=== PATIENT | female | born 1965 | race Caucasian/White ===

== ENCOUNTER 2024-07-11 07:11 | Emergency (ER) | payer MEDICARE, SELFPAY ==
[2024-07-11 07:23] VITALS: BP 127/78; PULSE 62; RESP 19; TEMP 36.6; O2SAT 92; BMI 32.1
--- NOTE | 2024-07-11 07:29 | XR_ITS ---
Examination: PA lateral chest 2 views Technique: Upright PA lateral chest 2 views Exam date and time: July 11, 2024 0840 hrs. Comparison July 01, 2024 Indications: Coughing beginning 2 days ago Findings: Mild prominence cardiac contour No pneumonia or pulmonary edema The osseous structures are intact There is mild to moderate hyperexpansion Impression: Mild to moderate hyperexpansion No pneumonia or pulmonary edema
--- NOTE | 2024-07-11 07:30 | PD.EDSOB ---
ED SOB =RME/HPI General Chief Complaint: Shortness of Breath/Dyspnea Stated Complaint: SOB Time Seen by Provider: 07/11/24 07:29 Source: patient Arrival date/time: 07/11/24 07:11 58-year-old female with past medical history of COPD presents emergency department complaining of shortness of breath that started this morning. Patient denies any fever, chills, nausea vomiting, chest pain, or any other associated symptom. Mode of arrival: ambulatory Limitations: no limitations Related Data Home Medications ?Medication ?Instructions ?Recorded ?Confirmed diltiazem HCl 30 mg tablet 30 mg PO QID 08/17/22 08/17/22 flecainide 50 mg tablet 50 mg PO BID 08/17/22 08/17/22 Previous Rx's ?Medication ?Instructions ?Recorded diltiazem HCl 90 mg 90 mg PO BID Tachycardia #30 caps 08/17/22 capsule,extended release 12 hr diltiazem HCl 90 mg 90 mg PO BID #30 caps 04/01/23 capsule,extended release 12 hr diltiazem HCl 90 mg tablet 90 mg PO BID #60 tabs 09/22/23 albuterol sulfate 90 mcg/actuation 2 inh inhalation Q4H PRN shortness 10/13/23 aerosol inhaler of breath or wheezing #8.5 grams diltiazem HCl 90 mg 90 mg PO BID #30 caps 12/29/23 capsule,extended release 12 hr doxycycline hyclate 100 mg capsule 100 mg PO BID #14 caps 02/24/24 prednisone 20 mg tablet See Taper PO QDAY #7 tabs 02/24/24 albuterol sulfate 90 mcg/actuation 2 puff inhalation Q6H PRN 03/13/24 aerosol inhaler (Ventolin HFA) shortness of breath or wheezing #8.5 grams ibuprofen 600 mg tablet 600 mg PO Q8H PRN fever or pain 04/16/24 #30 tabs albuterol sulfate 90 mcg/actuation 2 puff inhalation Q6H PRN 04/21/24 aerosol inhaler (Ventolin HFA) shortness of breath or wheezing #8.5 grams ibuprofen 600 mg tablet 600 mg PO Q6H #30 tabs 04/29/24 azithromycin 250 mg tablet See Rx Instructions PO .COMPLEX #6 05/13/24 tabs diltiazem HCl 120 mg 120 mg PO BID #30 caps 05/16/24 capsule,extended release 12 hr levalbuterol tartrate 45 2 inh inhalation Q4H PRN shortness 06/14/24 mcg/actuation aerosol inhaler of breath or wheezing #15 grams (Xopenex HFA) metoprolol tartrate 50 mg tablet 50 mg PO BID #60 tabs 06/18/24 albuterol sulfate 90 mcg/actuation 2 inh inhalation Q6H PRN shortness 06/24/24 breath activated powder inhaler of breath or wheezing #1 ea levalbuterol HCl 1.25 mg/3 mL 1.25 mg (3 mL) inhalation Q4H #90 06/29/24 solution for nebulization mL prednisone 20 mg tablet 20 mg PO BID 3 days #6 tabs 07/11/24 Allergies Allergy/AdvReac Type Severity Reaction Status Date / Time No Known Allergies Allergy Verified 06/29/24 08:04 Review of Systems Review of Systems Systems Reviewed: All systems reviewed, normal except as documented Constitutional Constitutional: Reports system reviewed and no additional complaints, except as documented, Denies body ache(s), Denies chills and Denies fever(s) Eyes Eyes: Reports system reviewed and no additional complaints, except as documented and Denies change in vision ENT Ears, Nose, Mouth, and Throat: Reports system reviewed and no additional complaints, except as documented, Denies disequilibrium, Denies dizziness, Denies sore throat and Denies vertigo Cardiovascular Cardiovascular: Reports system reviewed and no additional complaints, except as documented, Denies chest pain and Reports dyspnea Respiratory Respiratory: Reports system reviewed and no additional complaints, except as documented, Denies chest congestion, Denies cough and Reports dyspnea Gastrointestinal Gastrointestinal: Reports system reviewed and no additional complaints, except as documented, Denies abdominal pain, Denies nausea and Denies vomiting Musculoskeletal Musculoskeletal: Reports system reviewed and no additional complaints, except as documented, Denies abnormal gait and Denies arthralgias Integumentary/Breasts Skin/Breast: Reports system reviewed and no additional complaints, except as documented, Denies erythema, Denies rash and Denies wounds Neurologic Neurologic: Reports system reviewed and no additional complaints, except as documented, Denies abnormal gait, Denies disequilibrium, Denies dizziness and Denies vertigo Past Medical History Past Medical History NEUROLOGIC: Negative Neurological Disorders CARDIAC: Positive Cardiac Arrhythmia, Atrial Fibrillation and Hypertension; Negative Cardiac Disorders or Congestive Heart Failure RESPIRATORY: Positive Chronic Obstructive Pulmonary Disease (COPD) and Asthma GASTROINTESTINAL: Negative Gastrointestinal Disorders GENITOURINARY: Negative Genitourinary Disorders or Renal Disease MUSCULOSKELETAL: Positive Arthritis; Negative Musculoskeletal Disorders ENT: Positive Deafness ENDOCRINE: Negative Diabetes Mellitus Type 1 or Diabetes Mellitus Type 2 HEMATOLOGIC: Negative Blood Disorders or Sickle Cell Disease OTHER HISTORY: Positive Ovarian Cancer; Negative Blood Transfusions, Blood Transfusion Reaction or Anesthesia Reactions Surgical History SURGICAL: Positive Hysterectomy Social History SMOKING STATUS: Never smoker SUBSTANCE USE: former substance user and methamphetamine ED Exam General Limitations: Present no limitations General appearance: Present alert and in no apparent distress Head Head exam: Present atraumatic Eye Eye exam: Present normal appearance, PERRL and EOMI ENT ENT exam: Present normal exam, normal oropharynx and mucous membranes moist Neck Neck exam: Present normal inspection, full ROM and trachea midline Chest Chest inspection: Present normal inspection and symmetric chest wall rise Respiratory Respiratory exam: Present normal lung sounds bilaterally and wheezes (Bilateral upper lobe expiratory wheeze) Cardiovascular Cardiovascular exam: Present regular rate, normal rhythm and normal heart sounds Abdominal Exam Abdominal exam: Present soft and normal bowel sounds Extremities Exam Extremities exam: Present normal inspection and full ROM Back Exam Back exam: Present normal inspection and full ROM Neurological Exam Neurological exam: Present alert, oriented X3 and CN II-XII intact Psychiatric Psychiatric exam: Present normal affect and normal mood Skin Skin exam: Present warm, dry, intact and normal color Course Quality Measures none Orders Category Date Time Status Bedside COVID-19 Antigen Test NOW Care 07/11/24 07:29 Completed Bedside Influenza A&B Antigen Test NOW Care 07/11/24 07:29 Completed XR chest 2V Stat Exams 07/11/24 07:29 Completed ALBUTEROL RT 0.5ml [Proventil Rt 0.5ml] Med 07/11/24 07:28 Discontinued 5 mg INH X1 ONE Ipratropium [place] Rt Lauren [Atrovent Rt Lauren] Med 07/11/24 07:28 Discontinued 1 mg INH X1 ONE Sodium Chloride Rt Lauren 0.9% [NS Rt Lauren 0.9%] Med 07/11/24 07:28 Discontinued 3 ml INH PRN PRN Vital Signs Vital signs: Vital Signs Temperature 97.9 F 07/11/24 07:23 Pulse Rate 62 07/11/24 07:23 Respiratory Rate 19 07/11/24 07:23 Blood Pressure 127/78 07/11/24 07:23 Pulse Oximetry (%) 92 L 07/11/24 07:23 Oxygen Delivery Method Room Air 07/11/24 07:23 92% on room air that improved to 97% on room air after breathing treatment. Shortness of Breath / Dyspnea MDM Narrative MDM Narrative:: 58-year-old female with past medical history of COPD presents emergency department complaining of shortness of breath that started this morning. Patient denies any fever, chills, nausea vomiting, chest pain, or any other associated symptom. Bilateral upper lobe expiratory wheezing on auscultation, patient given breathing treatment and significant improvement in wheezing. Patient was 92% upon arrival and increased to 97% after breathing treatment. Patient reported improvement in symptoms. Patient does not appear toxic or hemodynamically stable. X-ray was negative for any acute process. Patient reports has follow-up visit on Friday with primary care provider. Patient reports has albuterol inhaler at home with nebulizer. Instructed to return to the emergency department for any worsening symptoms or as needed. Patient data External records reviewed:: [facility] previous records Clinical information provided by:: patient Social determinants that could affect healthcare access:: none Patient has the following chronic illnesses:: See chart How is presenting disease/condition affected by chronic disease/condition?: exacerbated by Evaluation data The following diagnostics were reviewed and interpreted by me:: lab results and radiology exam(s) Lab and/or radiology exams considered but not ordered:: Ordered Interpretation Summary: Interpreted by me Medications / Prescriptions Medications or Prescriptions considered but not ordered:: Ordered Medication administrations:: Medication Administration History Discontinued Medications Albuterol (Albuterol Rt 2.5 Mg/0.5 Ml Nebu) 5 mg INH X1 ONE Stop: 07/11/24 07:29 Last Admin: 07/11/24 07:52 Dose: 5 mg Documented By: JOSE Ipratropium [place] (Ipratropium Rt 0.5 Mg/ 2.5 Ml Nebu) 1 mg INH X1 ONE Stop: 07/11/24 07:29 Last Admin: 07/11/24 07:51 Dose: 1 mg Documented By: JOSE Sodium Chloride (Sodium Chloride Rt Lauren 0.9% 3 Ml Nebu) 3 ml INH PRN PRN PRN Reason: SOLN Stop: 08/10/24 07:27 Last Admin: 07/11/24 07:52 Dose: 3 ml Documented By: EV Given Consultations Consultation(s) initiated? (list below): No Diagnosis Shortness of Breath Differential Diagnosis: acute exacerbation of chronic obstructive airways disease, community acquired pneumonia, asthma with exacerbation and pulmonary embolism Most likely diagnosis given after review of the tests above:: COPD with exacerbation Admission Indicated Admission indicated?: not indicated Admission Request Was there a request for admission?: No Disposition Plan Disposition Plan: Discharge Discharge Attestation Discharge Attestation: The patient and all family members were given an opportunity to ask questions and understood the discharge instructions. Discharge instructions specifically effects, indications for sooner follow up or return to the emergency department, and the expected course of current diagnosis. Patient condition: Stable Discharge Plan Plan Patient Disposition: HOME (Self Care) Disposition Comment: Stable Prescriptions/Referrals Prescriptions/Med Rec: New prednisone 20 mg tablet 20 mg PO BID 3 Days Qty: 6 0RF Taper: Prednisone Taper 20 mg DAILY for 2 Days and 0 Hour 10 mg DAILY for 2 Days and 0 Hour 5 mg DAILY for 7 Days and 0 Hour No Action diltiazem HCl 90 mg tablet 90 mg PO BID Qty: 60 0RF ibuprofen 600 mg tablet 600 mg PO Q6H Qty: 30 0RF levalbuterol tartrate [Xopenex HFA] 45 mcg/actuation HFA aerosol inhaler 2 inh inhalation Q4H PRN (Reason: shortness of breath or wheezing) Qty: 15 0RF albuterol sulfate 90 mcg/actuation aerosol powdr breath activated 2 inh inhalation Q6H PRN (Reason: shortness of breath or wheezing) Qty: 1 0RF levalbuterol HCl 1.25 mg/3 mL solution for nebulization 1.25 mg inhalation Q4H Qty: 90 0RF flecainide 50 mg tablet 50 mg PO BID diltiazem HCl 30 mg tablet 30 mg PO QID diltiazem HCl 90 mg capsule,extended release 12 hr 90 mg PO BID Qty: 30 0RF diltiazem HCl 90 mg capsule,extended release 12 hr 90 mg PO BID Qty: 30 0RF albuterol sulfate 90 mcg/actuation HFA aerosol inhaler 2 inh inhalation Q4H PRN (Reason: shortness of breath or wheezing) Qty: 8.5 0RF diltiazem HCl 90 mg capsule,extended release 12 hr 90 mg PO BID Qty: 30 1RF prednisone 20 mg tablet See Taper PO QDAY Qty: 7 0RF Taper: Prednisone Taper 60 mg DAILY for 1 Day and 0 Hour 40 mg DAILY for 2 Days and 0 Hour 20 mg DAILY for 2 Days and 0 Hour Rx Instructions: 60mg once daily for 1 day 40mg once daily for 2 days 20mg once daily for 2 days doxycycline hyclate 100 mg capsule 100 mg PO BID Qty: 14 0RF albuterol sulfate [Ventolin HFA] 90 mcg/actuation HFA aerosol inhaler 2 puff inhalation Q6H PRN (Reason: shortness of breath or wheezing) Qty: 8.5 0RF ibuprofen 600 mg tablet 600 mg PO Q8H PRN (Reason: fever or pain) Qty: 30 0RF albuterol sulfate [Ventolin HFA] 90 mcg/actuation HFA aerosol inhaler 2 puff inhalation Q6H PRN (Reason: shortness of breath or wheezing) Qty: 8.5 0RF azithromycin 250 mg tablet See Rx Instructions .ROUTE .COMPLEX Qty: 6 0RF Rx Instructions: For 250 mg dose pack: take 500 mg today (day 1), then 250 mg for 4 days (days 2-5) diltiazem HCl 120 mg capsule,extended release 12 hr 120 mg PO BID Qty: 30 0RF metoprolol tartrate 50 mg tablet 50 mg PO BID Qty: 60 0RF Referrals: Sofía Aquino PA-C [Primary Care Provider] - In 1 week Problem List Clinical Impression: Acute exacerbation of chronic obstructive pulmonary disease (COPD) Patient/Caregiver Discharge Instructions Discharge Activity: activity as tolerated Education Materials: COPD: Chronic Coughing, COPD: Using Inhalers, Treatment for COPD Additional Instructions: Take medication as prescribed. 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 Return to the emergency department for any worsening symptoms or as needed. Print Language: Maori Stand Alone Forms: [employer] Info., Patient Portal Info Letter BARBARA/JAKOB Supervising Physician BARBARA/JAKOB Supervising Physician: Dr. Camacho
[2024-07-11] MEDS: IPRATROPIUM RT 0.5 MG/ 2.5 ML NEBU 1 MG INH (07:51)
[2024-07-11 07:52] VITALS: PULSE 48
[2024-07-11] MEDS: SODIUM CHLORIDE RT SOL 0.9% 3 ML NEBU INH (07:52)
[2024-07-11] MEDS: ALBUTEROL RT 2.5 MG/0.5 ML NEBU 5 MG INH (07:52)
[2024-07-11 07:54] VITALS: PULSE 47; RESP 18; O2SAT 100
[2024-07-11 09:36] VITALS: BP 125/70; PULSE 60; RESP 18; TEMP 36.6; O2SAT 94
== END 2024-07-11 09:38 | disposition home or self-care (01) ==
PROVIDERS: Emergency Provider Emergency Medicine; PCP Physician Assistant
DX: J44.1 Chronic obstructive pulmonary disease with (acute) exacerbation (principal)
CPT/HCPCS: 71046; 87400; 87811; 94640; 99283

== ENCOUNTER 2024-07-13 12:54 | Emergency (ER) | payer MEDICARE, SELFPAY ==
--- NOTE | 2024-07-13 13:09 | EKG_ITS ---
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
--- NOTE | 2024-07-13 13:09 | XR_ITS ---
Examination: PA lateral chest 2 views TECHNIQUE: Upright PA lateral chest 2 views Exam date and time: July 13, 2024 1345 hours Comparison July 11, 2024 INDICATIONS: Onset chest pain today FINDINGS: Normal heart size Lungs are clear. The osseous structures are intact IMPRESSION: No active disease
[2024-07-13 13:10] VITALS: BP 143/66; PULSE 60; RESP 20; TEMP 36.6; O2SAT 96; BMI 30.1
--- NOTE | 2024-07-13 13:13 | PD.EDRME ---
Rapid Medical Screening Exam RME Arrival date/time: 07/13/24 12:54 50-year-old female presents to the emergency department complaint of chest pain shortness of breath Chief Complaint: Chest Pain Time Seen by Provider: 07/13/24 13:01 Vital signs: Vital Signs Temperature 97.9 F 07/13/24 13:10 Pulse Rate 60 07/13/24 13:10 Respiratory Rate 20 07/13/24 13:10 Blood Pressure 143/66 H 07/13/24 13:10 Pulse Oximetry (%) 96 07/13/24 13:10 Oxygen Delivery Method Room Air 07/13/24 13:10
[2024-07-13 13:28] LABS: Basophils % (Auto) 0 % (0-2.5); Eosinophils # (Auto) 0.1 Thou/mm3 (0.0-0.5); Eosinophils % (Auto) 1 % (0-10); Hematocrit 43.4 % (36.0-46.0); Hemoglobin 14.3 g/dL (12.0-16.0); Immature Granulocytes % (Auto) 1 % (0-0); Lymphocytes # (Auto) 1.8 Thou/mm3 (1.0-4.8); Lymphocytes % (Auto) 12 % (10-50); Mean Corpuscular HGB Conc 32.9 g/dl (31.0-37.0); Mean Corpuscular Hemoglobin 29.9 pg (25.0-35.0); Mean Corpuscular Volume 91 fL (80-100); Monocytes # (Auto) 0.8 Thou/mm3 (0.0-0.8); Monocytes % (Auto) 6 % (0-12); Neutrophils % (Auto) 81 % (37-80); Nucleated Red Blood Cell % 0 /100 WBC (0); Platelet Count 243 Thou/mm3 (140-440); RDW Standard Deviation 47.2 fL (36.4-46.3); Red Blood Count 4.79 Miln/mm3 (4.00-5.20); White Blood Count 14.8 Thou/mm3 (3.6-11.0)
[2024-07-13] MEDS: LEVALBUTEROL RT 1.25 MG/0.5 ML NEBU INH ×2 (13:31→15:31)
[2024-07-13] MEDS: SODIUM CHLORIDE RT SOL 0.9% 3 ML NEBU INH (13:31)
[2024-07-13 13:32] VITALS: PULSE 62; RESP 20; O2SAT 96
[2024-07-13 14:03] LABS: Alanine Aminotransferase 17 U/L (10-49); Albumin, Serum 4.4 gm/dL (3.5-5.0); Alkaline Phosphatase 75 U/L (46-116); Anion Gap 3 (7-16); Aspartate Amino Transferase 11 U/L (0-34); BUN/Creatinine Ratio 14 Ratio (12-20); Bilirubin,Total 0.8 mg/dL (0.3-1.2); Blood Urea Nitrogen 14 mg/dL (9-23); Calcium 9.4 mg/dL (8.3-10.6); Calcium (Corrected) 9.4 mg/dL (8.5-10.1); Carbon Dioxide 31.8 mMol/L (20.0-31.0); Chloride 105 mMol/L (98-107); Globulin 2.2 gm/dL (2.3-3.5); Glucose 121 mg/dL (74-106); Lipase 26 U/L (12-53); Osmolality,Calculated 280 (275-295); Potassium 3.6 mMol/L (3.4-5.1); Sodium 140 mMol/L (136-145); Total Protein 6.6 gm/dL (5.7-8.2); Troponin I < 0.020 ng/mL (0.0-0.045); eGFR > 60 See Note
--- NOTE | 2024-07-13 15:25 | EDNOTE_ITS ---
ED Chest Pain RME/HPI General Chief Complaint: Chest Pain Stated Complaint: HEART RACING/IRREGULAR Time Seen by Provider: 07/13/24 13:01 Arrival date/time: 07/13/24 12:54 58-year-old with history of SVT, COPD, and asthma presents to the emergency department with cough congestion and wheezing Limitations: no limitations RME / HPI RME / HPI narrative: 07/13/24 12:54 50-year-old female presents to the emergency department complaint of chest pain shortness of breath Related Data Home Medications ?Medication ?Instructions ?Recorded ?Confirmed diltiazem HCl 30 mg tablet 30 mg PO QID 08/17/22 08/17/22 flecainide 50 mg tablet 50 mg PO BID 08/17/22 08/17/22 Previous Rx's ?Medication ?Instructions ?Recorded diltiazem HCl 90 mg 90 mg PO BID Tachycardia #30 caps 08/17/22 capsule,extended release 12 hr diltiazem HCl 90 mg 90 mg PO BID #30 caps 04/01/23 capsule,extended release 12 hr diltiazem HCl 90 mg tablet 90 mg PO BID #60 tabs 09/22/23 albuterol sulfate 90 mcg/actuation 2 inh inhalation Q4H PRN shortness 10/13/23 aerosol inhaler of breath or wheezing #8.5 grams diltiazem HCl 90 mg 90 mg PO BID #30 caps 12/29/23 capsule,extended release 12 hr doxycycline hyclate 100 mg capsule 100 mg PO BID #14 caps 02/24/24 prednisone 20 mg tablet See Taper PO QDAY #7 tabs 02/24/24 albuterol sulfate 90 mcg/actuation 2 puff inhalation Q6H PRN 03/13/24 aerosol inhaler (Ventolin HFA) shortness of breath or wheezing #8.5 grams ibuprofen 600 mg tablet 600 mg PO Q8H PRN fever or pain 04/16/24 #30 tabs albuterol sulfate 90 mcg/actuation 2 puff inhalation Q6H PRN 04/21/24 aerosol inhaler (Ventolin HFA) shortness of breath or wheezing #8.5 grams ibuprofen 600 mg tablet 600 mg PO Q6H #30 tabs 04/29/24 azithromycin 250 mg tablet See Rx Instructions PO .COMPLEX #6 05/13/24 tabs diltiazem HCl 120 mg 120 mg PO BID #30 caps 05/16/24 capsule,extended release 12 hr levalbuterol tartrate 45 2 inh inhalation Q4H PRN shortness 06/14/24 mcg/actuation aerosol inhaler of breath or wheezing #15 grams (Xopenex HFA) metoprolol tartrate 50 mg tablet 50 mg PO BID #60 tabs 06/18/24 albuterol sulfate 90 mcg/actuation 2 inh inhalation Q6H PRN shortness 06/24/24 breath activated powder inhaler of breath or wheezing #1 ea levalbuterol HCl 1.25 mg/3 mL 1.25 mg (3 mL) inhalation Q4H #90 06/29/24 solution for nebulization mL albuterol sulfate 90 mcg/actuation 2 puff inhalation Q6H PRN 07/13/24 aerosol inhaler (Ventolin HFA) shortness of breath or wheezing #8.5 grams levalbuterol tartrate 45 2 inh inhalation Q6H #15 grams 07/13/24 mcg/actuation aerosol inhaler (Xopenex HFA) Allergies Allergy/AdvReac Type Severity Reaction Status Date / Time No Known Allergies Allergy Verified 07/13/24 12:55 Review of Systems Review of Systems Systems Reviewed: All systems reviewed, normal except as documented Constitutional Constitutional: Reports system reviewed and no additional complaints, except as documented, Denies fever(s) and Denies headache(s) Eyes Eyes: Reports system reviewed and no additional complaints, except as documented and Denies blurry vision ENT Ears, Nose, Mouth, and Throat: Reports system reviewed and no additional complaints, except as documented, Denies headache(s), Denies nasal congestion and Denies nasal discharge Cardiovascular Cardiovascular: Reports system reviewed and no additional complaints, except as documented, Denies chest pain and Reports dyspnea Respiratory Respiratory: Reports system reviewed and no additional complaints, except as documented, Reports chest congestion, Reports cough and Reports dyspnea Gastrointestinal Gastrointestinal: Reports system reviewed and no additional complaints, except as documented and Denies abdominal pain Integumentary/Breasts Skin/Breast: Reports system reviewed and no additional complaints, except as documented and Denies rash Neurologic Neurologic: Reports system reviewed and no additional complaints, except as documented, Reports as per HPI and Denies headache(s) Past Medical History Past Medical History NEUROLOGIC: Negative Neurological Disorders CARDIAC: Positive Cardiac Arrhythmia, Atrial Fibrillation and Hypertension; Negative Cardiac Disorders or Congestive Heart Failure RESPIRATORY: Positive Chronic Obstructive Pulmonary Disease (COPD) and Asthma GASTROINTESTINAL: Negative Gastrointestinal Disorders GENITOURINARY: Negative Genitourinary Disorders or Renal Disease MUSCULOSKELETAL: Positive Arthritis; Negative Musculoskeletal Disorders ENT: Positive Deafness ENDOCRINE: Negative Diabetes Mellitus Type 1 or Diabetes Mellitus Type 2 HEMATOLOGIC: Negative Blood Disorders or Sickle Cell Disease OTHER HISTORY: Positive Ovarian Cancer; Negative Blood Transfusions, Blood Transfusion Reaction or Anesthesia Reactions Surgical History SURGICAL: Positive Hysterectomy Social History SMOKING STATUS: Light (< 1 pack/day) SUBSTANCE USE: former substance user and methamphetamine ED Exam General Limitations: Present no limitations General appearance: Present alert and in no apparent distress Head Head exam: Present atraumatic Eye Eye exam: Present normal appearance, PERRL and EOMI ENT ENT exam: Present normal exam, normal oropharynx and mucous membranes moist Neck Neck exam: Present normal inspection, full ROM and trachea midline Chest Chest inspection: Present normal inspection and symmetric chest wall rise Respiratory Respiratory exam: Present wheezes; Absent respiratory distress, stridor, accessory muscle use or prolonged expiratory phase Cardiovascular Cardiovascular exam: Present regular rate, normal rhythm and normal heart sounds Abdominal Exam Abdominal exam: Present soft and normal bowel sounds Extremities Exam Extremities exam: Present normal inspection and full ROM Back Exam Back exam: Present normal inspection and full ROM Neurological Exam Neurological exam: Present alert, oriented X3 and CN II-XII intact Psychiatric Psychiatric exam: Present normal affect and normal mood Skin Skin exam: Present warm, dry, intact and normal color Course Quality Measures none Orders Category Date Time Status EKG (ED ONLY) *Do not use* NOW Care 07/13/24 13:09 Completed EKG (ED Only) Stat Exams 07/13/24 13:09 Draft XR chest 2V Stat Exams 07/13/24 13:09 Completed CBC Stat Lab 07/13/24 13:23 Completed Comprehensive Metabolic Panel Stat Lab 07/13/24 13:23 Completed Lipase Stat Lab 07/13/24 13:23 Completed Troponin I Stat Lab 07/13/24 13:23 Completed Albuterol/Ipratr Rt Lauren [Duoneb Rt Lauren] Med 07/13/24 13:09 Discontinued 3 ml INH X1 ONE Levalbuterol Rt [Xopenex Rt Lauren] Med 07/13/24 13:27 Discontinued 1.25 mg INH X1 ONE Levalbuterol Rt [Xopenex Rt Lauren] Med 07/13/24 15:25 Discontinued 1.25 mg INH X1 ONE Sodium Chloride Rt Lauren 0.9% [NS Rt Lauren 0.9%] Med 07/13/24 13:27 Discontinued 3 ml INH PRN PRN Sodium Chloride Rt Lauren 0.9% [NS Rt Lauren 0.9%] Med 07/13/24 15:25 Discontinued 3 ml INH PRN PRN Vital Signs Vital signs: Vital Signs Temperature 97.9 F 07/13/24 13:10 Pulse Rate 60 07/13/24 13:10 Respiratory Rate 20 07/13/24 13:10 Blood Pressure 143/66 H 07/13/24 13:10 Pulse Oximetry (%) 96 07/13/24 13:10 Oxygen Delivery Method Room Air 07/13/24 13:10 O2 saturation 96% room air within normal limits Procedures -ED EKG Interpretation #1: Additional EKG comment: EKG obtained 1417 EKG sinus bradycardia [address] elevation or depression Chest Pain MDM Narrative MDM Narrative:: 58-year-old with history of SVT, COPD, and asthma presents to the emergency department with cough congestion and wheezing On exam patient has wheezing bilaterally Chest x-ray lab work and EKG obtained No acute emergent findings noted Patient was given Xopenex x 2 after breathing treatments lungs are clear to auscultation Patient reports like to go home Patient discharged home in no distress to follow-up with primary care doctor in the next 24 to 48 hours and for any worsening symptoms to return to the ER immediately Patient data External records reviewed:: [facility] previous records Clinical information provided by:: patient Social determinants that could affect healthcare access:: none Patient has the following chronic illnesses:: See history How is presenting disease/condition affected by chronic disease/condition?: caused by Evaluation data The following diagnostics were reviewed and interpreted by me:: lab results, radiology exam(s) and EKG tracing(s) Lab and/or radiology exams considered but not ordered:: Labs, radiology, EKG obtained Interpretation Summary: Reviewed by me Medications / Prescriptions Medications or Prescriptions considered but not ordered:: Given Medication administrations:: Medication Administration History Discontinued Medications Albuterol/Ipratropium (Albuterol/Ipratropium (Duoneb) Rt Lauren 3 Ml Nebu) 3 ml INH X1 ONE Stop: 07/13/24 13:10 Last Admin: 07/13/24 13:28 Dose: Not Given Documented By: ASHISH Non-Admin Reason: Allergy Levalbuterol HCl (Levalbuterol Rt 1.25 Mg/0.5 Ml Nebu) 1.25 mg INH X1 ONE Stop: 07/13/24 13:28 Last Admin: 07/13/24 13:31 Dose: 1.25 mg Documented By: ASHISH Levalbuterol HCl (Levalbuterol Rt 1.25 Mg/0.5 Ml Nebu) 1.25 mg INH X1 ONE Stop: 07/13/24 15:26 Last Admin: 07/13/24 15:31 Dose: 1.25 mg Documented By: FRITZ Sodium Chloride (Sodium Chloride Rt Lauren 0.9% 3 Ml Nebu) 3 ml INH PRN PRN PRN Reason: SOLN Stop: 08/12/24 13:26 Last Admin: 07/13/24 13:31 Dose: 3 ml Documented By: ASHISH Sodium Chloride (Sodium Chloride Rt Lauren 0.9% 3 Ml Nebu) 3 ml INH PRN PRN PRN Reason: SOLN Stop: 08/12/24 15:24 Given Consultations Consultation(s) initiated? (list below): No Diagnosis Chest Pain Differential Diagnosis: pneumothorax, atypical chest pain, st e levation myocardial infarction, costochondritis, chest pain and other (Asthma exacerbation) Most likely diagnosis given after review of the tests above:: Asthma exacerbation Admission Indicated Admission indicated?: not indicated Admission Request Was there a request for admission?: No Disposition Plan Disposition Plan: Discharge Discharge Attestation Discharge Attestation: The patient and all family members were given an opportunity to ask questions and understood the discharge instructions. Discharge instructions specifically effects, indications for sooner follow up or return to the emergency department, and the expected course of current diagnosis. Patient condition: Stable Discharge Plan Plan Patient Disposition: HOME (Self Care) Disposition Comment: Stable Prescriptions/Referrals Prescriptions/Med Rec: New albuterol sulfate [Ventolin HFA] 90 mcg/actuation HFA aerosol inhaler 2 puff inhalation Q6H PRN (Reason: shortness of breath or wheezing) Qty: 8.5 0RF levalbuterol tartrate [Xopenex HFA] 45 mcg/actuation HFA aerosol inhaler 2 inh inhalation Q6H Qty: 15 0RF No Action diltiazem HCl 90 mg tablet 90 mg PO BID Qty: 60 0RF ibuprofen 600 mg tablet 600 mg PO Q6H Qty: 30 0RF levalbuterol tartrate [Xopenex HFA] 45 mcg/actuation HFA aerosol inhaler 2 inh inhalation Q4H PRN (Reason: shortness of breath or wheezing) Qty: 15 0RF albuterol sulfate 90 mcg/actuation aerosol powdr breath activated 2 inh inhalation Q6H PRN (Reason: shortness of breath or wheezing) Qty: 1 0RF levalbuterol HCl 1.25 mg/3 mL solution for nebulization 1.25 mg inhalation Q4H Qty: 90 0RF flecainide 50 mg tablet 50 mg PO BID diltiazem HCl 30 mg tablet 30 mg PO QID diltiazem HCl 90 mg capsule,extended release 12 hr 90 mg PO BID Qty: 30 0RF diltiazem HCl 90 mg capsule,extended release 12 hr 90 mg PO BID Qty: 30 0RF albuterol sulfate 90 mcg/actuation HFA aerosol inhaler 2 inh inhalation Q4H PRN (Reason: shortness of breath or wheezing) Qty: 8.5 0RF diltiazem HCl 90 mg capsule,extended release 12 hr 90 mg PO BID Qty: 30 1RF prednisone 20 mg tablet See Taper PO QDAY Qty: 7 0RF Taper: Prednisone Taper 60 mg DAILY for 1 Day and 0 Hour 40 mg DAILY for 2 Days and 0 Hour 20 mg DAILY for 2 Days and 0 Hour Rx Instructions: 60mg once daily for 1 day 40mg once daily for 2 days 20mg once daily for 2 days doxycycline hyclate 100 mg capsule 100 mg PO BID Qty: 14 0RF albuterol sulfate [Ventolin HFA] 90 mcg/actuation HFA aerosol inhaler 2 puff inhalation Q6H PRN (Reason: shortness of breath or wheezing) Qty: 8.5 0RF ibuprofen 600 mg tablet 600 mg PO Q8H PRN (Reason: fever or pain) Qty: 30 0RF albuterol sulfate [Ventolin HFA] 90 mcg/actuation HFA aerosol inhaler 2 puff inhalation Q6H PRN (Reason: shortness of breath or wheezing) Qty: 8.5 0RF azithromycin 250 mg tablet See Rx Instructions .ROUTE .COMPLEX Qty: 6 0RF Rx Instructions: For 250 mg dose pack: take 500 mg today (day 1), then 250 mg for 4 days (days 2-5) diltiazem HCl 120 mg capsule,extended release 12 hr 120 mg PO BID Qty: 30 0RF metoprolol tartrate 50 mg tablet 50 mg PO BID Qty: 60 0RF Referrals: Sofía Aquino PA-C [Primary Care Provider] - In 1 week Problem List Clinical Impression: Shortness of breath Patient/Caregiver Discharge Instructions Education Materials: ED Shortness of Breath (Dyspnea) Additional Instructions: Please follow up with your primary care doctor in the next 24-48hrs for any worsening symptoms return here immediately Print Language: Estonian Stand Alone Forms: Serena Award Info., Patient Portal Info Letter PA/JAKOB Supervising Physician BARBARA/JAKOB Supervising Physician: Dr garland
[2024-07-13 15:32] VITALS: PULSE 58; RESP 20; O2SAT 98
[2024-07-13 16:55] VITALS: BP 138/90; PULSE 88; RESP 20; TEMP 36.8; O2SAT 98
== END 2024-07-13 16:57 | disposition home or self-care (01) ==
PROVIDERS: Nurse Practitioner Primary Care; Emergency Provider Emergency Medicine; PCP Physician Assistant
DX: R06.02 Shortness of breath (principal); R07.9 Chest pain, unspecified; R00.1 Bradycardia, unspecified
CPT/HCPCS: 36415; 71046; 80053; 83690; 84484; 85025; 93005; 94640; 99284

== ENCOUNTER 2024-07-14 08:38 | Emergency (ER) | payer MEDICARE, SELFPAY ==
[2024-07-14 08:38] VITALS: PULSE 65; O2SAT 96
[2024-07-14 08:45] VITALS: BP 116/78; PULSE 67; RESP 19; TEMP 36.8; O2SAT 98; BMI 27.4
--- NOTE | 2024-07-14 09:01 | PD.EDADULT ---
ED General RME/HPI General Chief complaint: Shortness of Breath/Dyspnea Stated complaint: SOB Time Seen by Provider: 07/14/24 08:39 Arrival date/time: 07/14/24 08:38 58-year day old deaf female with COPD, asthma presents the emergency department today with complaints of cough and congestion and wheezing patient also reports right lower back pain patient reports her pain is worse with movement Limitations: no limitations Related Data Home Medications ?Medication ?Instructions ?Recorded ?Confirmed diltiazem HCl 30 mg tablet 30 mg PO QID 08/17/22 08/17/22 flecainide 50 mg tablet 50 mg PO BID 08/17/22 08/17/22 Previous Rx's ?Medication ?Instructions ?Recorded diltiazem HCl 90 mg 90 mg PO BID Tachycardia #30 caps 08/17/22 capsule,extended release 12 hr diltiazem HCl 90 mg 90 mg PO BID #30 caps 04/01/23 capsule,extended release 12 hr diltiazem HCl 90 mg tablet 90 mg PO BID #60 tabs 09/22/23 albuterol sulfate 90 mcg/actuation 2 inh inhalation Q4H PRN shortness 10/13/23 aerosol inhaler of breath or wheezing #8.5 grams diltiazem HCl 90 mg 90 mg PO BID #30 caps 12/29/23 capsule,extended release 12 hr doxycycline hyclate 100 mg capsule 100 mg PO BID #14 caps 02/24/24 prednisone 20 mg tablet See Taper PO QDAY #7 tabs 02/24/24 albuterol sulfate 90 mcg/actuation 2 puff inhalation Q6H PRN 03/13/24 aerosol inhaler (Ventolin HFA) shortness of breath or wheezing #8.5 grams ibuprofen 600 mg tablet 600 mg PO Q8H PRN fever or pain 04/16/24 #30 tabs albuterol sulfate 90 mcg/actuation 2 puff inhalation Q6H PRN 04/21/24 aerosol inhaler (Ventolin HFA) shortness of breath or wheezing #8.5 grams ibuprofen 600 mg tablet 600 mg PO Q6H #30 tabs 04/29/24 azithromycin 250 mg tablet See Rx Instructions PO .COMPLEX #6 05/13/24 tabs diltiazem HCl 120 mg 120 mg PO BID #30 caps 05/16/24 capsule,extended release 12 hr levalbuterol tartrate 45 2 inh inhalation Q4H PRN shortness 06/14/24 mcg/actuation aerosol inhaler of breath or wheezing #15 grams (Xopenex HFA) metoprolol tartrate 50 mg tablet 50 mg PO BID #60 tabs 06/18/24 albuterol sulfate 90 mcg/actuation 2 inh inhalation Q6H PRN shortness 06/24/24 breath activated powder inhaler of breath or wheezing #1 ea levalbuterol HCl 1.25 mg/3 mL 1.25 mg (3 mL) inhalation Q4H #90 06/29/24 solution for nebulization mL albuterol sulfate 90 mcg/actuation 2 puff inhalation Q6H PRN 07/13/24 aerosol inhaler (Ventolin HFA) shortness of breath or wheezing #8.5 grams levalbuterol tartrate 45 2 inh inhalation Q6H #15 grams 07/13/24 mcg/actuation aerosol inhaler (Xopenex HFA) acetaminophen 500 mg capsule 1,000 mg (2 x 500 mg) PO Q8HR PRN 07/14/24 pain #30 caps cyclobenzaprine 5 mg tablet 5 mg PO TID PRN muscle spasm #30 07/14/24 tabs Allergies Allergy/AdvReac Type Severity Reaction Status Date / Time ketorolac [From Toradol] Allergy Intermediate Rash Verified 07/16/24 12:25 Review of Systems Review of Systems Systems Reviewed: All systems reviewed, normal except as documented Constitutional Constitutional: Reports system reviewed and no additional complaints, except as documented, Denies fever(s) and Denies headache(s) Eyes Eyes: Reports system reviewed and no additional complaints, except as documented and Denies blurry vision ENT Ears, Nose, Mouth, and Throat: Reports system reviewed and no additional complaints, except as documented, Denies headache(s), Denies nasal congestion and Denies nasal discharge Cardiovascular Cardiovascular: Reports system reviewed and no additional complaints, except as documented, Denies chest pain and Denies dyspnea Respiratory Respiratory: Reports system reviewed and no additional complaints, except as documented, Reports chest congestion, Reports cough, Denies dyspnea and Reports wheezing Gastrointestinal Gastrointestinal: Reports system reviewed and no additional complaints, except as documented and Denies abdominal pain Musculoskeletal Musculoskeletal: Reports system reviewed and no additional complaints, except as documented and Reports back pain Integumentary/Breasts Skin/Breast: Reports system reviewed and no additional complaints, except as documented and Denies rash Neurologic Neurologic: Reports system reviewed and no additional complaints, except as documented, Reports as per HPI and Denies headache(s) Allergic/Immunologic Allergic/Immunologic: Reports wheezing Past Medical History Past Medical History NEUROLOGIC: Negative Neurological Disorders CARDIAC: Positive Cardiac Arrhythmia, Atrial Fibrillation and Hypertension; Negative Cardiac Disorders or Congestive Heart Failure RESPIRATORY: Positive Chronic Obstructive Pulmonary Disease (COPD) and Asthma GASTROINTESTINAL: Negative Gastrointestinal Disorders GENITOURINARY: Negative Genitourinary Disorders or Renal Disease MUSCULOSKELETAL: Positive Arthritis; Negative Musculoskeletal Disorders ENT: Positive Deafness ENDOCRINE: Negative Diabetes Mellitus Type 1 or Diabetes Mellitus Type 2 HEMATOLOGIC: Negative Blood Disorders or Sickle Cell Disease OTHER HISTORY: Positive Ovarian Cancer; Negative Blood Transfusions, Blood Transfusion Reaction or Anesthesia Reactions Surgical History SURGICAL: Positive Hysterectomy Social History SMOKING STATUS: Current some day smoker SUBSTANCE USE: former substance user and methamphetamine ED Exam General Limitations: Present no limitations General appearance: Present alert and in no apparent distress Head Head exam: Present atraumatic, normocephalic and normal inspection Eye Eye exam: Present normal appearance, PERRL and EOMI; Absent conjunctival injection ENT ENT exam: Present normal exam, normal oropharynx and mucous membranes moist Neck Neck exam: Present normal inspection, full ROM and trachea midline Chest Chest inspection: Present normal inspection and symmetric chest wall rise Respiratory Respiratory exam: Present normal lung sounds bilaterally; Absent respiratory distress Cardiovascular Cardiovascular exam: Present regular rate, normal rhythm and normal heart sounds; Absent bradycardia, tachycardia or irregular rhythm Abdominal Exam Abdominal exam: Present soft and normal bowel sounds; Absent distention, tenderness, guarding, rebound or rigidity Extremities Exam Extremities exam: Present normal inspection and full ROM Back Exam Back exam: Present normal inspection and full ROM Neurological Exam Neurological exam: Present alert, oriented X3, CN II-XII intact, normal gait and reflexes normal; Absent motor sensory deficit Psychiatric Psychiatric exam: Present normal affect and normal mood Skin Skin exam: Present warm, dry, intact and normal color; Absent rash Course Quality Measures none Orders Category Date Time Status Acetaminophen Tab [Tylenol ES Tab] Med 07/14/24 09:00 Discontinued 1,000 mg PO X1 ONE Dexamethasone Inj [Decadron Inj] Med 07/14/24 09:00 Discontinued 10 mg PO X1 ONE Vital Signs Vital signs: Vital Signs Temperature 98.3 F 07/14/24 08:45 Pulse Rate 67 07/14/24 08:45 Respiratory Rate 19 11/13/24 08:45 Blood Pressure 116/78 07/14/24 08:45 Pulse Oximetry (%) 98 07/14/24 08:45 Oxygen Delivery Method Room Air 07/14/24 08:45 O2 saturation 98% on room air within normal limits MDM Patient data External records reviewed:: [facility] previous records Clinical information provided by:: patient Social determinants that could affect healthcare access:: none Patient has the following chronic illnesses:: None How is presenting disease/condition affected by chronic disease/condition?: no chronic disease Evaluation data The following diagnostics were reviewed and interpreted by me:: radiology exam(s) Lab and/or radiology exams considered but not ordered:: Radiology obtained Interpretation Summary: Reviewed by me Medications Medications considered but not ordered:: Given Medication administrations:: Medication Administration History Discontinued Medications Acetaminophen (Acetaminophen 500 Mg Tablet) 1,000 mg PO X1 ONE Stop: 07/14/24 09:01 Last Admin: 07/14/24 09:12 Dose: 1,000 mg Documented By: ARF Dexamethasone Sodium Phosphate (Dexamethasone Sod Phos Inj 10 Mg/Ml Vial) 10 mg PO X1 ONE Stop: 07/14/24 09:01 Last Admin: 07/14/24 09:12 Dose: 10 mg Documented By: ARF Given Consultations Consultation(s) initiated? (list below): No Diagnosis Differential Diagnosis ED Complaint MDM: URI, viral illness, COVID-19, pneumonia Most likely diagnosis given after review of the tests above:: Viral illness Admission Indicated Admission indicated?: not indicated Explain why admission is indicated or not indicated:: No criteria Admission Request Was there a request for admission?: No Disposition Plan Disposition Plan: Discharge Discharge Attestation Discharge Attestation: The patient and all family members were given an opportunity to ask questions and understood the discharge instructions. Discharge instructions specifically effects, indications for sooner follow up or return to the emergency department, and the expected course of current diagnosis. Patient condition: Stable Medical Decision Making MDM Narrative MDM Narrative: 58-year day old deaf female with COPD, asthma presents the emergency department today with complaints of cough and congestion and wheezing patient also reports right lower back pain patient reports her pain is worse with movement On exam patient well-appearing patient does not appear ill or toxic patient does not appear to be in any acute distress Patient discharged home in no distress to follow-up with primary care doctor in the next 24 to 48 hours and for any worsening symptoms to return to the ER immediately Differential Diagnosis Differential Diagnosis: URI, viral illness, COVID-19, pneumonia Medical Records Medical records reviewed: Yes I reviewed the patient's medical records. Radiology Data Radiology results reviewed: Yes I reviewed the patient's radiology results. Discharge Plan Plan Patient Disposition: HOME (Self Care) Disposition Comment: Stable Prescriptions/Referrals Prescriptions/Med Rec: New acetaminophen 500 mg capsule 1,000 mg PO Q8HR PRN (Reason: pain) Qty: 30 0RF cyclobenzaprine 5 mg tablet 5 mg PO TID PRN (Reason: muscle spasm) Qty: 30 0RF No Action diltiazem HCl 90 mg tablet 90 mg PO BID Qty: 60 0RF ibuprofen 600 mg tablet 600 mg PO Q6H Qty: 30 0RF levalbuterol tartrate [Xopenex HFA] 45 mcg/actuation HFA aerosol inhaler 2 inh inhalation Q4H PRN (Reason: shortness of breath or wheezing) Qty: 15 0RF albuterol sulfate 90 mcg/actuation aerosol powdr breath activated 2 inh inhalation Q6H PRN (Reason: shortness of breath or wheezing) Qty: 1 0RF levalbuterol HCl 1.25 mg/3 mL solution for nebulization 1.25 mg inhalation Q4H Qty: 90 0RF flecainide 50 mg tablet 50 mg PO BID diltiazem HCl 30 mg tablet 30 mg PO QID diltiazem HCl 90 mg capsule,extended release 12 hr 90 mg PO BID Qty: 30 0RF diltiazem HCl 90 mg capsule,extended release 12 hr 90 mg PO BID Qty: 30 0RF albuterol sulfate 90 mcg/actuation HFA aerosol inhaler 2 inh inhalation Q4H PRN (Reason: shortness of breath or wheezing) Qty: 8.5 0RF diltiazem HCl 90 mg capsule,extended release 12 hr 90 mg PO BID Qty: 30 1RF prednisone 20 mg tablet See Taper PO QDAY Qty: 7 0RF Taper: Prednisone Taper 60 mg DAILY for 1 Day and 0 Hour 40 mg DAILY for 2 Days and 0 Hour 20 mg DAILY for 2 Days and 0 Hour Rx Instructions: 60mg once daily for 1 day 40mg once daily for 2 days 20mg once daily for 2 days doxycycline hyclate 100 mg capsule 100 mg PO BID Qty: 14 0RF albuterol sulfate [Ventolin HFA] 90 mcg/actuation HFA aerosol inhaler 2 puff inhalation Q6H PRN (Reason: shortness of breath or wheezing) Qty: 8.5 0RF ibuprofen 600 mg tablet 600 mg PO Q8H PRN (Reason: fever or pain) Qty: 30 0RF albuterol sulfate [Ventolin HFA] 90 mcg/actuation HFA aerosol inhaler 2 puff inhalation Q6H PRN (Reason: shortness of breath or wheezing) Qty: 8.5 0RF azithromycin 250 mg tablet See Rx Instructions .ROUTE .COMPLEX Qty: 6 0RF Rx Instructions: For 250 mg dose pack: take 500 mg today (day 1), then 250 mg for 4 days (days 2-5) diltiazem HCl 120 mg capsule,extended release 12 hr 120 mg PO BID Qty: 30 0RF metoprolol tartrate 50 mg tablet 50 mg PO BID Qty: 60 0RF albuterol sulfate [Ventolin HFA] 90 mcg/actuation HFA aerosol inhaler 2 puff inhalation Q6H PRN (Reason: shortness of breath or wheezing) Qty: 8.5 0RF levalbuterol tartrate [Xopenex HFA] 45 mcg/actuation HFA aerosol inhaler 2 inh inhalation Q6H Qty: 15 0RF Problem List Clinical Impression: Back pain Patient/Caregiver Discharge Instructions Education Materials: Back Safety Bed Print Language: Guatem[place] Stand Alone Forms: Serena Award Info., Patient Portal Info Letter PA/DELICATESSEN STORE MANAGER Supervising Physician PA/DELICATESSEN STORE MANAGER Supervising Physician: Dr. shirley
[2024-07-14] MEDS: DEXAMETHASONE SOD PHOS INJ 10 MG/ML VIAL PO (09:12)
[2024-07-14] MEDS: ACETAMINOPHEN 500 MG TABLET 1000 MG PO (09:12)
== END 2024-07-14 09:27 | disposition home or self-care (01) ==
LOC: SERX 09:18
PROVIDERS: Emergency Provider Emergency Medicine; PCP Physician Assistant
DX: M54.50 Low back pain, unspecified (principal)
CPT/HCPCS: 99282; J1100; A9270

== ENCOUNTER 2024-07-16 08:03 | Emergency (ER) | payer MEDICARE, SELFPAY ==
[2024-07-16 08:06] VITALS: BP 120/62; PULSE 53; RESP 22; TEMP 36.6; O2SAT 95; BMI 30.2
--- NOTE | 2024-07-16 08:33 | EDNOTE_ITS ---
ED SOB =RME/HPI General Chief Complaint: Shortness of Breath/Dyspnea Stated Complaint: SOB AGAIN Time Seen by Provider: 07/16/24 08:15 Source: patient Arrival date/time: 07/16/24 08:03 58-year-old female with past medical history of COPD presents emergency department complaining of shortness of breath that started this morning. Reports wheezing. Patient denies any fever, chills, nausea vomiting, chest pain, or any other associated symptom. Mode of arrival: ambulatory Limitations: no limitations Related Data Home Medications ?Medication ?Instructions ?Recorded ?Confirmed diltiazem HCl 30 mg tablet 30 mg PO QID 08/17/22 08/17/22 flecainide 50 mg tablet 50 mg PO BID 08/17/22 08/17/22 Previous Rx's ?Medication ?Instructions ?Recorded diltiazem HCl 90 mg 90 mg PO BID Tachycardia #30 caps 08/17/22 capsule,extended release 12 hr diltiazem HCl 90 mg 90 mg PO BID #30 caps 04/01/23 capsule,extended release 12 hr diltiazem HCl 90 mg tablet 90 mg PO BID #60 tabs 09/22/23 albuterol sulfate 90 mcg/actuation 2 inh inhalation Q4H PRN shortness 10/13/23 aerosol inhaler of breath or wheezing #8.5 grams diltiazem HCl 90 mg 90 mg PO BID #30 caps 12/29/23 capsule,extended release 12 hr doxycycline hyclate 100 mg capsule 100 mg PO BID #14 caps 02/24/24 prednisone 20 mg tablet See Taper PO QDAY #7 tabs 02/24/24 albuterol sulfate 90 mcg/actuation 2 puff inhalation Q6H PRN 03/13/24 aerosol inhaler (Ventolin HFA) shortness of breath or wheezing #8.5 grams ibuprofen 600 mg tablet 600 mg PO Q8H PRN fever or pain 04/16/24 #30 tabs albuterol sulfate 90 mcg/actuation 2 puff inhalation Q6H PRN 04/21/24 aerosol inhaler (Ventolin HFA) shortness of breath or wheezing #8.5 grams ibuprofen 600 mg tablet 600 mg PO Q6H #30 tabs 04/29/24 azithromycin 250 mg tablet See Rx Instructions PO .COMPLEX #6 05/13/24 tabs diltiazem HCl 120 mg 120 mg PO BID #30 caps 05/16/24 capsule,extended release 12 hr levalbuterol tartrate 45 2 inh inhalation Q4H PRN shortness 06/14/24 mcg/actuation aerosol inhaler of breath or wheezing #15 grams (Xopenex HFA) metoprolol tartrate 50 mg tablet 50 mg PO BID #60 tabs 06/18/24 albuterol sulfate 90 mcg/actuation 2 inh inhalation Q6H PRN shortness 06/24/24 breath activated powder inhaler of breath or wheezing #1 ea levalbuterol HCl 1.25 mg/3 mL 1.25 mg (3 mL) inhalation Q4H #90 06/29/24 solution for nebulization mL albuterol sulfate 90 mcg/actuation 2 puff inhalation Q6H PRN 07/13/24 aerosol inhaler (Ventolin HFA) shortness of breath or wheezing #8.5 grams levalbuterol tartrate 45 2 inh inhalation Q6H #15 grams 07/13/24 mcg/actuation aerosol inhaler (Xopenex HFA) acetaminophen 500 mg capsule 1,000 mg (2 x 500 mg) PO Q8HR PRN 07/14/24 pain #30 caps cyclobenzaprine 5 mg tablet 5 mg PO TID PRN muscle spasm #30 07/14/24 tabs Allergies Allergy/AdvReac Type Severity Reaction Status Date / Time ketorolac [From Toradol] Allergy Intermediate Rash Verified 07/16/24 12:25 Review of Systems Review of Systems Systems Reviewed: All systems reviewed, normal except as documented Constitutional Constitutional: Reports system reviewed and no additional complaints, except as documented, Denies fever(s) and Denies headache(s) Eyes Eyes: Reports system reviewed and no additional complaints, except as documented and Denies blurry vision ENT Ears, Nose, Mouth, and Throat: Reports system reviewed and no additional complaints, except as documented, Denies headache(s), Denies nasal congestion and Denies nasal discharge Cardiovascular Cardiovascular: Reports system reviewed and no additional complaints, except as documented, Denies chest pain and Reports dyspnea Respiratory Respiratory: Reports system reviewed and no additional complaints, except as documented, Reports chest congestion, Reports cough and Reports dyspnea Gastrointestinal Gastrointestinal: Reports system reviewed and no additional complaints, except as documented and Denies abdominal pain Integumentary/Breasts Skin/Breast: Reports system reviewed and no additional complaints, except as do cumented and Denies rash Neurologic Neurologic: Reports system reviewed and no additional complaints, except as documented, Reports as per HPI and Denies headache(s) ED Exam General Limitations: Present no limitations General appearance: Present alert and in no apparent distress Head Head exam: Present atraumatic Eye Eye exam: Present normal appearance, PERRL and EOMI ENT ENT exam: Present normal exam, normal oropharynx and mucous membranes moist Neck Neck exam: Present normal inspection, full ROM and trachea midline Chest Chest inspection: Present normal inspection and symmetric chest wall rise Respiratory Respiratory exam: Present wheezes; Absent respiratory distress, stridor, accessory muscle use or prolonged expiratory phase Cardiovascular Cardiovascular exam: Present regular rate, normal rhythm and normal heart sounds Abdominal Exam Abdominal exam: Present soft and normal bowel sounds Extremities Exam Extremities exam: Present normal inspection and full ROM Back Exam Back exam: Present normal inspection and full ROM Neurological Exam Neurological exam: Present alert, oriented X3 and CN II-XII intact Psychiatric Psychiatric exam: Present normal affect and normal mood Skin Skin exam: Present warm, dry, intact and normal color Course Quality Measures none Orders Category Date Time Status Urinalysis Stat Lab 07/16/24 09:53 Completed Ipratropium [place] Rt Lauren [Atrovent Rt Lauren] Med 07/16/24 08:29 Discontinued 0.5 mg INH X1 ONE Levalbuterol Rt [Xopenex Rt Lauren] Med 07/16/24 08:29 Discontinued 1.25 mg INH X1 ONE Morphine Inj Med 07/16/24 12:37 Discontinued 5 mg IM X1 ONE Sodium Chloride Rt Lauren 0.9% [NS Rt Lauren 0.9%] Med 07/16/24 08:29 Discontinued 3 ml INH PRN PRN Vital Signs Vital signs: Vital Signs Temperature 97.8 F 07/16/24 08:06 Pulse Rate 53 L 07/16/24 08:06 Respiratory Rate 22 H 07/16/24 08:06 Blood Pressure 120/62 07/16/24 08:06 Pulse Oximetry (%) 95 07/16/24 08:06 Oxygen Delivery Method Room Air 07/16/24 08:06 Shortness of Breath / Dyspnea MDM Narrative MDM Narrative:: 58-year-old female with past medical history of COPD presents emergency department complaining of shortness of breath that started this morning. Patient denies any fever, chills, nausea vomiting, chest pain, or any other associated symptom. Bilateral upper lobe expiratory mild wheezing on auscultation, patient given breathing treatment and significant improvement in wheezing. Patient was 95% upon arrival and increased to 97% after breathing treatment. Patient reported improvement in symptoms. Patient does not appear toxic or hemodynamically stable. X-ray was negative for any acute process. Patient reports has follow-up visit on Friday with primary care provider. Patient reports has albuterol inhaler at home with nebulizer. Instructed to return to the emergency department for any worsening symptoms or as needed. Patient data External records reviewed:: [facility] previous records Clinical information provided by:: patient Social determinants that could affect healthcare access:: none Patient has the following chronic illnesses:: See chart How is presenting disease/condition affected by chronic disease/condition?: exacerbated by Evaluation data The following diagnostics were reviewed and interpreted by me:: lab results and radiology exam(s) Lab and/or radiology exams considered but not ordered:: Ordered Interpretation Summary: Interpreted by me Medications / Prescriptions Medications or Prescriptions considered but not ordered:: Ordered Medication administrations:: Medication Administration History Discontinued Medications Ipratropium [place] (Ipratropium Rt 0.5 Mg/ 2.5 Ml Nebu) 0.5 mg INH X1 ONE Stop: 07/16/24 08:30 Last Admin: 07/16/24 08:50 Dose: 0.5 mg Documented By: SERGIO Levalbuterol HCl (Levalbuterol Rt 1.25 Mg/0.5 Ml Nebu) 1.25 mg INH X1 ONE Stop: 07/16/24 08:30 Last Admin: 07/16/24 08:50 Dose: 1.25 mg Documented By: BJ Morphine Sulfate (Morphine Sulf Inj 10 Mg/Ml Vial) 5 mg IM X1 ONE Stop: 07/16/24 12:38 Last Admin: 07/16/24 12:49 Dose: 5 mg Documented By: RD Sodium Chloride (Sodium Chloride Rt Lauren 0.9% 3 Ml Nebu) 3 ml INH PRN PRN PRN Reason: SOLN Stop: 08/15/24 08:28 Given Consultations Consultation(s) initiated? (list below): No Diagnosis Shortness of Breath Differential Diagnosis: acute exacerbation of chronic obstructive airways disease, community acquired pneumonia, asthma with exacerbation and pulmonary embolism Most likely diagnosis given after review of the tests above:: COPD with exacerbation Admission Indicated Admission indicated?: not indicated Admission Request Was there a request for admission?: No Disposition Plan Disposition Plan: Discharge Discharge Attestation Discharge Attestation: The patient and all family members were given an opportunity to ask questions and understood the discharge instructions. Discharge instructions specifically effects, indications for sooner follow up or return to the emergency department, and the expected course of current diagnosis. Patient condition: Stable Discharge Plan Plan Patient Disposition: HOME (Self Care) Patient condition on transfer: Stable Prescriptions/Referrals Prescriptions/Med Rec: No Action diltiazem HCl 90 mg tablet 90 mg PO BID Qty: 60 0RF ibuprofen 600 mg tablet 600 mg PO Q6H Qty: 30 0RF levalbuterol tartrate [Xopenex HFA] 45 mcg/actuation HFA aerosol inhaler 2 inh inhalation Q4H PRN (Reason: shortness of breath or wheezing) Qty: 15 0RF albuterol sulfate 90 mcg/actuation aerosol powdr breath activated 2 inh inhalation Q6H PRN (Reason: shortness of breath or wheezing) Qty: 1 0RF levalbuterol HCl 1.25 mg/3 mL solution for nebulization 1.25 mg inhalation Q4H Qty: 90 0RF acetaminophen 500 mg capsule 1,000 mg PO Q8HR PRN (Reason: pain) Qty: 30 0RF cyclobenzaprine 5 mg tablet 5 mg PO TID PRN (Reason: muscle spasm) Qty: 30 0RF flecainide 50 mg tablet 50 mg PO BID diltiazem HCl 30 mg tablet 30 mg PO QID diltiazem HCl 90 mg capsule,extended release 12 hr 90 mg PO BID Qty: 30 0RF diltiazem HCl 90 mg capsule,extended release 12 hr 90 mg PO BID Qty: 30 0RF albuterol sulfate 90 mcg/actuation HFA aerosol inhaler 2 inh inhalation Q4H PRN (Reason: shortness of breath or wheezing) Qty: 8.5 0RF diltiazem HCl 90 mg capsule,extended release 12 hr 90 mg PO BID Qty: 30 1RF prednisone 20 mg tablet See Taper PO QDAY Qty: 7 0RF Taper: Prednisone Taper 60 mg DAILY for 1 Day and 0 Hour 40 mg DAILY for 2 Days and 0 Hour 20 mg DAILY for 2 Days and 0 Hour Rx Instructions: 60mg once daily for 1 day 40mg once daily for 2 days 20mg once daily for 2 days doxycycline hyclate 100 mg capsule 100 mg PO BID Qty: 14 0RF albuterol sulfate [Ventolin HFA] 90 mcg/actuation HFA aerosol inhaler 2 puff inhalation Q6H PRN (Reason: shortness of breath or wheezing) Qty: 8.5 0RF ibuprofen 600 mg tablet 600 mg PO Q8H PRN (Reason: fever or pain) Qty: 30 0RF albuterol sulfate [Ventolin HFA] 90 mcg/actuation HFA aerosol inhaler 2 puff inhalation Q6H PRN (Reason: shortness of breath or wheezing) Qty: 8.5 0RF azithromycin 250 mg tablet See Rx Instructions .ROUTE .COMPLEX Qty: 6 0RF Rx Instructions: For 250 mg dose pack: take 500 mg today (day 1), then 250 mg for 4 days (days 2-5) diltiazem HCl 120 mg capsule,extended release 12 hr 120 mg PO BID Qty: 30 0RF metoprolol tartrate 50 mg tablet 50 mg PO BID Qty: 60 0RF albuterol sulfate [Ventolin HFA] 90 mcg/actuation HFA aerosol inhaler 2 puff inhalation Q6H PRN (Reason: shortness of breath or wheezing) Qty: 8.5 0RF levalbuterol tartrate [Xopenex HFA] 45 mcg/actuation HFA aerosol inhaler 2 inh inhalation Q6H Qty: 15 0RF Referrals: Sofía Aquino PA-C [Primary Care Provider] - In 1 week Problem List Clinical Impression: Acute exacerbation of chronic obstructive pulmonary disease (COPD), Back pain Patient/Caregiver Discharge Instructions Discharge Activity: activity as tolerated Education Materials: COPD Meds, ED Back and Neck Pain, General Additional Instructions: Please continue to use your inhalers as directed. I did send a medication for your back pain you can continue to alternate between Tylenol ibuprofen for pain. Follow-up with your primary doctor on Friday for follow-up care. Return to the emergency department is any worsening symptoms change in condition. Print Language: Irish Stand Alone Forms: Serena Award Info., Patient Portal Info Letter BARBARA/JAKOB Supervising Physician ANDRES Supervising Physician: Dr Mayes
[2024-07-16] MEDS: LEVALBUTEROL RT 1.25 MG/0.5 ML NEBU INH (08:50)
[2024-07-16] MEDS: IPRATROPIUM RT 0.5 MG/ 2.5 ML NEBU INH (08:50)
[2024-07-16 08:51] VITALS: PULSE 61; RESP 18; O2SAT 99
[2024-07-16 10:01] LABS: Collection Type, Urine Clean Catch
[2024-07-16 10:04] LABS: Bilirubin,Urine Negative (Negative); Blood,Urine Negative (Negative); Clarity,Urine Clear (Clear/Hazy); Color,Urine Lt-Yellow (Lt Yel-Yel); Glucose, Urine Negative (Negative); Ketones,Urine Negative (Negative); Leukocyte Esterase,Urine Negative (Negative); Nitrite,Urine Negative (Negative); PH,Urine 6.5 (5.0-7.0); Protein,Urine Trace (Neg - Trace); RBC,Urine 3 /hpf (0-3); Specific Gravity,Urine 1.025 (1.001-1.035); Squamous Epithelial Cell,Urine 2 /hpf (0-5); Urobilinogen,Urine Negative mg/dL (0.0-1.0); WBC,Urine 3 /hpf (0-5)
--- NOTE | 2024-07-16 12:33 | PC.NURSE ---
RECEIVED VERBAL ORDER FOR PAIN SHOT.
[2024-07-16] MEDS: MORPHINE SULF INJ 10 MG/ML VIAL 5 MG IM (12:49)
== END 2024-07-16 13:38 | disposition home or self-care (01) ==
PROVIDERS: Nurse Practitioner Primary Care; Emergency Provider Emergency Medicine; PCP Physician Assistant
DX: J44.1 Chronic obstructive pulmonary disease with (acute) exacerbation (principal); M54.9 Dorsalgia, unspecified
CPT/HCPCS: 81001; 94640; 96372; 99284; J2270

== ENCOUNTER 2024-07-18 08:33 | Emergency (ER) | payer MEDICARE, SELFPAY ==
[2024-07-18 08:55] VITALS: BP 112/65; PULSE 55; RESP 20; TEMP 36.8; O2SAT 96; BMI 31.7
--- NOTE | 2024-07-18 09:11 | XR_ITS ---
Examination: PA lateral chest 2 views Technique: Upright PA lateral chest 2 views Exam date and time: July 18, 2024 at 0923 hrs. Comparison July 13, 2024 Indications: Chest pain shortness of breath beginning today. Findings: Mild prominence left ventricle No pneumonia or pulmonary edema Mild hyperexpansion Intact osseous structures Impression: Mild hyperexpansion No pneumonia or pulmonary edema
--- NOTE | 2024-07-18 09:12 | PD.EDRME ---
Rapid Medical Screening Exam RME Arrival date/time: 07/18/24 08:33 58-year-old female presents to the emergency department with complaints of mild chest pain and dyspnea. I have greeted and performed a focused initial assessment of this patient. Initial appropriate labs ordered at this time. A comprehensive ED assessment and evaluation of the patient and analysis of all test and completion of medical decision making process will be conducted by additional ED provider. Chief Complaint: Shortness of Breath/Dyspnea Time Seen by Provider: 07/18/24 08:37 Vital signs: Vital Signs Temperature 98.2 F 07/18/24 08:55 Pulse Rate 55 L 07/18/24 08:55 Respiratory Rate 20 07/18/24 08:55 Blood Pressure 112/65 07/18/24 08:55 Pulse Oximetry (%) 96 07/18/24 08:55 Oxygen Delivery Method Room Air 07/18/24 08:55
[2024-07-18] MEDS: SODIUM CHLORIDE RT SOL 0.9% 3 ML NEBU INH (09:31)
[2024-07-18] MEDS: LEVALBUTEROL RT 1.25 MG/0.5 ML NEBU INH (09:31)
[2024-07-18 09:34] VITALS: PULSE 52; RESP 16; O2SAT 99
[2024-07-18 10:03] LABS: Basophils % (Auto) 0 % (0-2.5); Eosinophils # (Auto) 0.1 Thou/mm3 (0.0-0.5); Eosinophils % (Auto) 0 % (0-10); Hematocrit 41.5 % (36.0-46.0); Hemoglobin 13.6 g/dL (12.0-16.0); Immature Granulocytes % (Auto) 1 % (0-0); Immature Granulocytes Auto 0.09 Thou/mm3 (0.00-0.00); Lymphocytes # (Auto) 2.2 Thou/mm3 (1.0-4.8); Lymphocytes % (Auto) 16 % (10-50); Mean Corpuscular HGB Conc 32.8 g/dl (31.0-37.0); Mean Corpuscular Hemoglobin 29.6 pg (25.0-35.0); Mean Corpuscular Volume 90 fL (80-100); Monocytes # (Auto) 1.1 Thou/mm3 (0.0-0.8); Monocytes % (Auto) 8 % (0-12); Neutrophils # (Auto) 10.1 Thou/mm3 (1.8-7.7); Neutrophils % (Auto) 75 % (37-80); Nucleated Red Blood Cell % 0 /100 WBC (0); Platelet Count 207 Thou/mm3 (140-440); RDW Standard Deviation 47.7 fL (36.4-46.3); White Blood Count 13.4 Thou/mm3 (3.6-11.0)
[2024-07-18 10:08] LABS: Alanine Aminotransferase 28 U/L (10-49); Albumin, Serum 4.2 gm/dL (3.5-5.0); Alkaline Phosphatase 65 U/L (46-116); Anion Gap 4 (7-16); Aspartate Amino Transferase 13 U/L (0-34); B-Type Natriuretic Peptide 63 pg/mL (0-100); BUN/Creatinine Ratio 17 Ratio (12-20); Bilirubin,Total 0.4 mg/dL (0.3-1.2); Blood Urea Nitrogen 17 mg/dL (9-23); Calcium 9.3 mg/dL (8.3-10.6); Calcium (Corrected) 9.3 mg/dL (8.5-10.1); Carbon Dioxide 29.8 mMol/L (20.0-31.0); Chloride 105 mMol/L (98-107); Estimated Creatinine Clearance 57.3 mL/min (>60); Globulin 2.1 gm/dL (2.3-3.5); Glucose 88 mg/dL (74-106); Lipase 27 U/L (12-53); Osmolality,Calculated 278 (275-295); Potassium 4.3 mMol/L (3.4-5.1); Sodium 139 mMol/L (136-145); Total Protein 6.3 gm/dL (5.7-8.2); Troponin I < 0.020 ng/mL (0.0-0.045); eGFR > 60 See Note
[2024-07-18 10:09] LABS: Partial Thromboplastin Time 24.4 Seconds (22.0-36.0)
--- NOTE | 2024-07-18 10:34 | EDNOTE_ITS ---
Upper Respiratory Inf. RME/HPI General Chief Complaint: Shortness of Breath/Dyspnea Stated Complaint: sob Time Seen by Provider: 07/18/24 08:37 Arrival date/time: 07/18/24 08:33 Limitations: no limitations RME / HPI RME / HPI Narrative: 07/18/24 08:33 58-year-old female presents to the emergency department with complaints of mild chest pain and dyspnea. I have greeted and performed a focused initial assessment of this patient. Initial appropriate labs ordered at this time. A comprehensive ED assessment and evaluation of the patient and analysis of all test and completion of medical decision making process will be conducted by additional ED provider. DR. KEMP MAIN ED EVALUATION: 58 year old female with past medical history significant for COPD, who is deaf and reads lips presents to the Emergency Department with complaints of left sided chest pain and shortness of breath for the last three days. She has a dry cough as well. She denies fevers, chills or sweats. She denies nausea, vomiting, or diarrhea. Related Data Home Medications ?Medication ?Instructions ?Recorded ?Confirmed diltiazem HCl 30 mg tablet 30 mg PO QID 08/17/22 08/17/22 flecainide 50 mg tablet 50 mg PO BID 08/17/22 08/17/22 Previous Rx's ?Medication ?Instructions ?Recorded diltiazem HCl 90 mg 90 mg PO BID Tachycardia #30 caps 08/17/22 capsule,extended release 12 hr diltiazem HCl 90 mg 90 mg PO BID #30 caps 04/01/23 capsule,extended release 12 hr diltiazem HCl 90 mg tablet 90 mg PO BID #60 tabs 09/22/23 albuterol sulfate 90 mcg/actuation 2 inh inhalation Q4H PRN shortness 10/13/23 aerosol inhaler of breath or wheezing #8.5 grams diltiazem HCl 90 mg 90 mg PO BID #30 caps 12/29/23 capsule,extended release 12 hr doxycycline hyclate 100 mg capsule 100 mg PO BID #14 caps 02/24/24 prednisone 20 mg tablet See Taper PO QDAY #7 tabs 02/24/24 albuterol sulfate 90 mcg/actuation 2 puff inhalation Q6H PRN 03/13/24 aerosol inhaler (Ventolin HFA) shortness of breath or wheezing #8.5 grams ibuprofen 600 mg tablet 600 mg PO Q8H PRN fever or pain 04/16/24 #30 tabs albuterol sulfate 90 mcg/actuation 2 puff inhalation Q6H PRN 04/21/24 aerosol inhaler (Ventolin HFA) shortness of breath or wheezing #8.5 grams ibuprofen 600 mg tablet 600 mg PO Q6H #30 tabs 04/29/24 azithromycin 250 mg tablet See Rx Instructions PO .COMPLEX #6 05/13/24 tabs diltiazem HCl 120 mg 120 mg PO BID #30 caps 05/16/24 capsule,extended release 12 hr levalbuterol tartrate 45 2 inh inhalation Q4H PRN shortness 06/14/24 mcg/actuation aerosol inhaler of breath or wheezing #15 grams (Xopenex HFA) metoprolol tartrate 50 mg tablet 50 mg PO BID #60 tabs 06/18/24 albuterol sulfate 90 mcg/actuation 2 inh inhalation Q6H PRN shortness 06/24/24 breath activated powder inhaler of breath or wheezing #1 ea levalbuterol HCl 1.25 mg/3 mL 1.25 mg (3 mL) inhalation Q4H #90 06/29/24 solution for nebulization mL albuterol sulfate 90 mcg/actuation 2 puff inhalation Q6H PRN 07/13/24 aerosol inhaler (Ventolin HFA) shortness of breath or wheezing #8.5 grams levalbuterol tartrate 45 2 inh inhalation Q6H #15 grams 07/13/24 mcg/actuation aerosol inhaler (Xopenex HFA) acetaminophen 500 mg capsule 1,000 mg (2 x 500 mg) PO Q8HR PRN 07/14/24 pain #30 caps cyclobenzaprine 5 mg tablet 5 mg PO TID PRN muscle spasm #30 07/14/24 tabs doxycycline monohydrate 100 mg 100 mg PO BID #10 caps 07/18/24 capsule Allergies Allergy/AdvReac Type Severity Reaction Status Date / Time ketorolac [From Toradol] Allergy Intermediate Rash Verified 07/18/24 08:34 Review of Systems Review of Systems Systems Reviewed: All systems reviewed, normal except as documented Narrative Review of Systems: GEN: No fever, no chills, no weight loss EYES: No discharge, no visual changes, no pain HEENT: No ear pain, no congestion, no sore throat PULM: + shortness of breath, + dry cough, no congestion CV: + left sided chest pain, no dyspnea on exertion, no palpitations GI: No nausea, no vomiting, no diarrhea, no pain, no constipation : No frequency, no urgency and no dysuria MUSC/SKEL: No joint pain, no back pain SKIN: No rash PSYCH: No hallucinations, no depression HEME/LYMPH: No easy bleeding or bruising tendencies NEURO: No weakness, no headache Past Medical History Past Medical History RESPIRATORY: Positive Chronic Obstructive Pulmonary Disease (COPD) Social History SMOKING STATUS: Former smoker SUBSTANCE USE: does not use ALCOHOL: Never Past Medical History Comments PMH COMMENT: Deaf and reads lips. ED Exam General Limitations: Present no limitations General appearance: Present alert and in no apparent distress Head Head exam: Present atraumatic, normocephalic and normal inspection Eye Eye exam: Present normal appearance, PERRL and EOMI ENT ENT exam: Present normal exam, normal oropharynx and mucous membranes moist Neck Neck exam: Present normal inspection, full ROM and trachea midline Chest Chest inspection: Present normal inspection and symmetric chest wall rise Respiratory Respiratory exam: Present normal lung sounds bilaterally Cardiovascular Cardiovascular exam: Present regular rate, normal rhythm and normal heart sounds Abdominal Exam Abdominal exam: Present soft and normal bowel sounds Extremities Exam Extremities exam: Present normal inspection and full ROM Back Exam Back exam: Present normal inspection and full ROM Neurological Exam Neurological exam: Present alert, oriented X3 and CN II-XII intact Psychiatric Psychiatric exam: Present normal affect and normal mood Skin Skin exam: Present warm, dry, intact and normal color Course Quality Measures none Orders Category Date Time Status EKG (ED ONLY) *Do not use* NOW Care 07/18/24 09:11 Completed EKG (ED Only) Stat Exams 07/18/24 09:11 Ordered XR chest 2V Stat Exams 07/18/24 09:11 Completed B-Type Natriuretic Peptide Stat Lab 07/18/24 09:43 Completed CBC Stat Lab 07/18/24 09:43 Completed Comprehensive Metabolic Panel Stat Lab 07/18/24 09:43 Completed Lipase Stat Lab 07/18/24 09:43 Completed Partial Thromboplastin Time Stat Lab 07/18/24 09:43 Completed Troponin I Stat Lab 07/18/24 09:43 Completed Levalbuterol Rt [Xopenex Rt Lauren] Med 07/18/24 09:11 Discontinued 1.25 mg INH X1 ONE Sodium Chloride Rt Lauren 0.9% [NS Rt Lauren 0.9%] Med 07/18/24 09:11 Discontinued 3 ml INH PRN PRN Vital Signs Vital signs: Vital Signs Temperature 98.2 F 07/18/24 08:55 Pulse Rate 55 L 07/18/24 08:55 Respiratory Rate 20 07/18/24 08:55 Blood Pressure 112/65 07/18/24 08:55 Pulse Oximetry (%) 96 07/18/24 08:55 Oxygen Delivery Method Room Air 07/18/24 08:55 Upper Respiratory Infection MDM Narrative MDM Narrative:: I, Candida Reid, chuy scribing for and in the presence of Dr. Kemp. Patient data External records reviewed:: [facility] previous records (Reviewed last ED visit dated 07/16/24, discharged with the following: Acute exacerbation of chronic obstructive pulmonary disease (COPD).) Clinical information provided by:: patient Social determinants that could affect healthcare access:: other (specify) (Former smoker) Patient has the following chronic illnesses:: COPD, who is deaf and reads lips. How is presenting disease/condition affected by chronic disease/condition?: exacerbated by Evaluation data The following diagnostics were reviewed and interpreted by me:: lab results and radiology exam(s) Lab and/or radiology exams considered but not ordered:: none Interpretation Summary: Chest x-ray of my interpretation shows a left lower lobe infiltrate, no cardiomegaly, no bony abnormalities, I reviewed the radiology interpretation and feel that there is still a spine sign on the lateral x-ray and an early infiltrate on the left, which we will treat. RADIOLOGY Procedure(s): XR chest 2V Accession Number(s): [id number] cc: Terrell Padgett MD; Sofía Aquino PA-C; Moon Malone~ Examination: PA lateral chest 2 views Technique: Upright PA lateral chest 2 views Exam date and time: July 18, 2024 at 0923 hrs. Comparison July 13, 2024 Indications: Chest pain shortness of breath beginning today. Findings: Mild prominence left ventricle No pneumonia or pulmonary edema Mild hyperexpansion Intact osseous structures Impression: Mild hyperexpansion No pneumonia or pulmonary edema Dictated By: Terrell Padgett MD Medications / Prescriptions Medications or Prescriptions considered but not ordered:: none Medication administrations:: Medication Administration History Discontinued Medications Levalbuterol HCl (Levalbuterol Rt 1.25 Mg/0.5 Ml Nebu) 1.25 mg INH X1 ONE Stop: 07/18/24 09:12 Last Admin: 07/18/24 09:31 Dose: 1.25 mg Documented By: Sodium Chloride (Sodium Chloride Rt Lauren 0.9% 3 Ml Nebu) 3 ml INH PRN PRN PRN Reason: SOLN Stop: 08/17/24 09:10 Last Admin: 07/18/24 09:31 Dose: 3 ml Documented By: see above Consultations Consultation(s) initiated? (list below): No Diagnosis Upper Respiratory Differential Diagnosis: upper respiratory infection, viral infection and other (community acquired pneumonia) Most likely diagnosis given after review of the tests above:: Pneumonia Admission Indicated Admission indicated?: not indicated Admission Request Was there a request for admission?: No Disposition Plan Disposition Plan: Discharge Discharge Attestation Discharge Attestation: The patient and all family members were given an opportunity to ask questions and understood the discharge instructions. Discharge instructions specifically effects, indications for sooner follow up or return to the emergency department, and the expected course of current diagnosis. Patient condition: Stable Discharge Plan Plan Patient Disposition: HOME (Self Care) Prescriptions/Referrals Prescriptions/Med Rec: New doxycycline monohydrate 100 mg capsule 100 mg PO BID Qty: 10 0RF No Action diltiazem HCl 90 mg tablet 90 mg PO BID Qty: 60 0RF ibuprofen 600 mg tablet 600 mg PO Q6H Qty: 30 0RF levalbuterol tartrate [Xopenex HFA] 45 mcg/actuation HFA aerosol inhaler 2 inh inhalation Q4H PRN (Reason: shortness of breath or wheezing) Qty: 15 0RF albuterol sulfate 90 mcg/actuation aerosol powdr breath activated 2 inh inhalation Q6H PRN (Reason: shortness of breath or wheezing) Qty: 1 0RF levalbuterol HCl 1.25 mg/3 mL solution for nebulization 1.25 mg inhalation Q4H Qty: 90 0RF acetaminophen 500 mg capsule 1,000 mg PO Q8HR PRN (Reason: pain) Qty: 30 0RF cyclobenzaprine 5 mg tablet 5 mg PO TID PRN (Reason: muscle spasm) Qty: 30 0RF flecainide 50 mg tablet 50 mg PO BID diltiazem HCl 30 mg tablet 30 mg PO QID diltiazem HCl 90 mg capsule,extended release 12 hr 90 mg PO BID Qty: 30 0RF diltiazem HCl 90 mg capsule,extended release 12 hr 90 mg PO BID Qty: 30 0RF albuterol sulfate 90 mcg/actuation HFA aerosol inhaler 2 inh inhalation Q4H PRN (Reason: shortness of breath or wheezing) Qty: 8.5 0RF diltiazem HCl 90 mg capsule,extended release 12 hr 90 mg PO BID Qty: 30 1RF prednisone 20 mg tablet See Taper PO QDAY Qty: 7 0RF Taper: Prednisone Taper 60 mg DAILY for 1 Day and 0 Hour 40 mg DAILY for 2 Days and 0 Hour 20 mg DAILY for 2 Days and 0 Hour Rx Instructions: 60mg once daily for 1 day 40mg once daily for 2 days 20mg once daily for 2 days doxycycline hyclate 100 mg capsule 100 mg PO BID Qty: 14 0RF albuterol sulfate [Ventolin HFA] 90 mcg/actuation HFA aerosol inhaler 2 puff inhalation Q6H PRN (Reason: shortness of breath or wheezing) Qty: 8.5 0RF ibuprofen 600 mg tablet 600 mg PO Q8H PRN (Reason: fever or pain) Qty: 30 0RF albuterol sulfate [Ventolin HFA] 90 mcg/actuation HFA aerosol inhaler 2 puff inhalation Q6H PRN (Reason: shortness of breath or wheezing) Qty: 8.5 0RF azithromycin 250 mg tablet See Rx Instructions .ROUTE .COMPLEX Qty: 6 0RF Rx Instructions: For 250 mg dose pack: take 500 mg today (day 1), then 250 mg for 4 days (days 2-5) diltiazem HCl 120 mg capsule,extended release 12 hr 120 mg PO BID Qty: 30 0RF metoprolol tartrate 50 mg tablet 50 mg PO BID Qty: 60 0RF albuterol sulfate [Ventolin HFA] 90 mcg/actuation HFA aerosol inhaler 2 puff inhalation Q6H PRN (Reason: shortness of breath or wheezing) Qty: 8.5 0RF levalbuterol tartrate [Xopenex HFA] 45 mcg/actuation HFA aerosol inhaler 2 inh inhalation Q6H Qty: 15 0RF Referrals: Sofía Aquino PA-C [Primary Care Provider] - In 1 week Problem List Clinical Impression: Pneumonia Patient/Caregiver Discharge Instructions Education Materials: ED Pneumonia (Adult) Additional Instructions: Follow-up with your primary care doctor in 5 to 7 days for recheck. You can return to the emergency department sooner if symptoms worsen or if you notice any new, concerning issues. Print Language: Indonesian Stand Alone Forms: Serena Award Info., Patient Portal Info Letter
== END 2024-07-18 10:36 | disposition home or self-care (01) ==
PROVIDERS: Nurse Practitioner Primary Care; Emergency Provider Emergency Medicine; PCP Physician Assistant
DX: J44.0 Chronic obstructive pulmonary disease with (acute) lower respiratory infection (principal); J18.9 Pneumonia, unspecified organism; R00.1 Bradycardia, unspecified; Z87.891 Personal history of nicotine dependence
CPT/HCPCS: 36415; 71046; 80053; 83690; 83880; 84484; 85025; 85730; 93005; 94640; 99283

== ENCOUNTER 2024-07-19 12:38 | Emergency (ER) | payer MEDICARE, SELFPAY ==
[2024-07-19 12:55] VITALS: BP 140/83; PULSE 96; RESP 20; TEMP 36.8; O2SAT 95; BMI 27.4
--- NOTE | 2024-07-19 13:05 | EDNOTE_ITS ---
ED SOB =RME/HPI General Chief Complaint: Shortness of Breath/Dyspnea Stated Complaint: SOB, LEFT SIDE PAIN Time Seen by Provider: 07/19/24 12:56 Arrival date/time: 07/19/24 12:38 58-year-old female presents emergency department today stating she just darted taking an antibiotic for pneumonia patient reports she did not feel well after taking antibiotic. Patient reports no fever no chest pain. Limitations: no limitations Related Data Home Medications ?Medication ?Instructions ?Recorded ?Confirmed diltiazem HCl 30 mg tablet 30 mg PO QID 08/17/22 08/17/22 flecainide 50 mg tablet 50 mg PO BID 08/17/22 08/17/22 Previous Rx's ?Medication ?Instructions ?Recorded diltiazem HCl 90 mg 90 mg PO BID Tachycardia #30 caps 08/17/22 capsule,extended release 12 hr diltiazem HCl 90 mg 90 mg PO BID #30 caps 04/01/23 capsule,extended release 12 hr diltiazem HCl 90 mg tablet 90 mg PO BID #60 tabs 09/22/23 albuterol sulfate 90 mcg/actuation 2 inh inhalation Q4H PRN shortness 10/13/23 aerosol inhaler of breath or wheezing #8.5 grams diltiazem HCl 90 mg 90 mg PO BID #30 caps 12/29/23 capsule,extended release 12 hr doxycycline hyclate 100 mg capsule 100 mg PO BID #14 caps 02/24/24 prednisone 20 mg tablet See Taper PO QDAY #7 tabs 02/24/24 albuterol sulfate 90 mcg/actuation 2 puff inhalation Q6H PRN 03/13/24 aerosol inhaler (Ventolin HFA) shortness of breath or wheezing #8.5 grams ibuprofen 600 mg tablet 600 mg PO Q8H PRN fever or pain 04/16/24 #30 tabs albuterol sulfate 90 mcg/actuation 2 puff inhalation Q6H PRN 04/21/24 aerosol inhaler (Ventolin HFA) shortness of breath or wheezing #8.5 grams ibuprofen 600 mg tablet 600 mg PO Q6H #30 tabs 04/29/24 azithromycin 250 mg tablet See Rx Instructions PO .COMPLEX #6 05/13/24 tabs diltiazem HCl 120 mg 120 mg PO BID #30 caps 05/16/24 capsule,extended release 12 hr levalbuterol tartrate 45 2 inh inhalation Q4H PRN shortness 06/14/24 mcg/actuation aerosol inhaler of breath or wheezing #15 grams (Xopenex HFA) metoprolol tartrate 50 mg tablet 50 mg PO BID #60 tabs 06/18/24 albuterol sulfate 90 mcg/actuation 2 inh inhalation Q6H PRN shortness 06/24/24 breath activated powder inhaler of breath or wheezing #1 ea levalbuterol HCl 1.25 mg/3 mL 1.25 mg (3 mL) inhalation Q4H #90 06/29/24 solution for nebulization mL albuterol sulfate 90 mcg/actuation 2 puff inhalation Q6H PRN 07/13/24 aerosol inhaler (Ventolin HFA) shortness of breath or wheezing #8.5 grams levalbuterol tartrate 45 2 inh inhalation Q6H #15 grams 07/13/24 mcg/actuation aerosol inhaler (Xopenex HFA) acetaminophen 500 mg capsule 1,000 mg (2 x 500 mg) PO Q8HR PRN 07/14/24 pain #30 caps cyclobenzaprine 5 mg tablet 5 mg PO TID PRN muscle spasm #30 07/14/24 tabs doxycycline monohydrate 100 mg 100 mg PO BID #10 caps 07/18/24 capsule Allergies Allergy/AdvReac Type Severity Reaction Status Date / Time ketorolac [From Toradol] Allergy Intermediate Rash Verified 07/19/24 12:39 Review of Systems Review of Systems Systems Reviewed: All systems reviewed, normal except as documented Constitutional Constitutional: Reports system reviewed and no additional complaints, except as documented, Denies fever(s) and Denies headache(s) Eyes Eyes: Reports system reviewed and no additional complaints, except as documented and Denies blurry vision ENT Ears, Nose, Mouth, and Throat: Reports system reviewed and no additional complaints, except as documented, Denies headache(s), Denies nasal congestion and Denies nasal discharge Cardiovascular Cardiovascular: Reports system reviewed and no additional complaints, except as documented, Denies chest pain and Reports dyspnea Respiratory Respiratory: Reports system reviewed and no additional complaints, except as documented, Reports chest congestion, Reports cough, Reports dyspnea and Reports wheezing Gastrointestinal Gastrointestinal: Reports system reviewed and no additional complaints, except as documented and Denies abdominal pain Integumentary/Breasts Skin/Breast: Reports system reviewed and no additional complaints, except as documented and Denies rash Neurologic Neurologic: Reports system reviewed and no additional complaints, except as documented, Reports as per HPI and Denies headache(s) Psychiatric Psychiatric: Reports system reviewed and no additional complaints, except as documented and Reports anxiety Allergic/Immunologic Allergic/Immunologic: Reports wheezing Past Medical History Past Medical History NEUROLOGIC: Negative Neurological Disorders CARDIAC: Negative Cardiac Disorders ED Exam General Limitations: Present no limitations General appearance: Present alert and in no apparent distress Head Head exam: Present atraumatic Eye Eye exam: Present normal appearance, PERRL and EOMI; Absent conjunctival injection ENT ENT exam: Present normal exam, normal oropharynx and mucous membranes moist Neck Neck exam: Present normal inspection, full ROM and trachea midline Chest Chest inspection: Present normal inspection and symmetric chest wall rise Respiratory Respiratory exam: Present wheezes (Mild expiratory bilateral chronic); Absent respiratory distress, stridor, accessory muscle use or prolonged expiratory phase Cardiovascular Cardiovascular exam: Present regular rate, normal rhythm and normal heart sounds; Absent bradycardia, tachycardia or irregular rhythm Abdominal Exam Abdominal exam: Present soft and normal bowel sounds; Absent distention, t enderness, guarding, rebound or rigidity Extremities Exam Extremities exam: Present normal inspection and full ROM Back Exam Back exam: Present normal inspection and full ROM Neurological Exam Neurological exam: Present alert, oriented X3 and CN II-XII intact Psychiatric Psychiatric exam: Present normal affect and normal mood Skin Skin exam: Present warm, dry, intact and normal color Course Quality Measures none Vital Signs Vital signs: Vital Signs Temperature 98.3 F 07/19/24 12:55 Pulse Rate 96 07/19/24 12:55 Respiratory Rate 20 07/19/24 12:55 Blood Pressure 140/83 H 07/19/24 12:55 Pulse Oximetry (%) 95 07/19/24 12:55 Oxygen Delivery Method Room Air 07/19/24 12:55 O2 saturation 95% room air within normal limits Shortness of Breath / Dyspnea MDM Narrative MDM Narrative:: 58-year-old female presents emergency department today stating she just darted taking an antibiotic for pneumonia patient reports she did not feel well after taking antibiotic. Patient reports no fever no chest pain. Patient well-known to me patient comes frequently patient had recent x-ray as well as cardiac workup On exam patient has mild wheezing which is chronic for the patient I do not believe patient requires any breathing treatments x-rays or imaging at this time Patient discharged home in no distress to follow-up with primary care doctor in the next 24 to 48 hours and for any worsening symptoms to return to the ER immediately Patient data External records reviewed:: [facility] previous records Clinical information provided by:: patient Social determinants that could affect healthcare access:: none Patient has the following chronic illnesses:: COPD, asthma How is presenting disease/condition affected by chronic disease/condition?: caused by Evaluation data The following diagnostics were reviewed and interpreted by me:: other (specify) (N/A) Lab and/or radiology exams considered but not ordered:: Consider not ordered Interpretation Summary: N/A Medications / Prescriptions Medications or Prescriptions considered but not ordered:: Given Medication administrations:: Given Consultations Consultation(s) initiated? (list below): No Diagnosis Shortness of Breath Differential Diagnosis: acute exacerbation of chronic obstructive airways disease, congestive heart failure, asthma with exacerbation and other (Pneumonia, COPD) Most likely diagnosis given after review of the tests above:: COPD Admission Indicated Admission indicated?: not indicated Admission Request Was there a request for admission?: No Disposition Plan Disposition Plan: Discharge Discharge Attestation Discharge Attestation: The patient and all family members were given an opportunity to ask questions and understood the discharge instructions. Discharge instructions specifically effects, indications for sooner follow up or return to the emergency department, and the expected course of current diagnosis. Patient condition: Stable Discharge Plan Plan Patient Disposition: HOME (Self Care) Disposition Comment: Stable Prescriptions/Referrals Prescriptions/Med Rec: No Action diltiazem HCl 90 mg tablet 90 mg PO BID Qty: 60 0RF ibuprofen 600 mg tablet 600 mg PO Q6H Qty: 30 0RF levalbuterol tartrate [Xopenex HFA] 45 mcg/actuation HFA aerosol inhaler 2 inh inhalation Q4H PRN (Reason: shortness of breath or wheezing) Qty: 15 0RF albuterol sulfate 90 mcg/actuation aerosol powdr breath activated 2 inh inhalation Q6H PRN (Reason: shortness of breath or wheezing) Qty: 1 0RF levalbuterol HCl 1.25 mg/3 mL solution for nebulization 1.25 mg inhalation Q4H Qty: 90 0RF acetaminophen 500 mg capsule 1,000 mg PO Q8HR PRN (Reason: pain) Qty: 30 0RF cyclobenzaprine 5 mg tablet 5 mg PO TID PRN (Reason: muscle spasm) Qty: 30 0RF doxycycline monohydrate 100 mg capsule 100 mg PO BID Qty: 10 0RF flecainide 50 mg tablet 50 mg PO BID diltiazem HCl 30 mg tablet 30 mg PO QID diltiazem HCl 90 mg capsule,extended release 12 hr 90 mg PO BID Qty: 30 0RF diltiazem HCl 90 mg capsule,extended release 12 hr 90 mg PO BID Qty: 30 0RF albuterol sulfate 90 mcg/actuation HFA aerosol inhaler 2 inh inhalation Q4H PRN (Reason: shortness of breath or wheezing) Qty: 8.5 0RF diltiazem HCl 90 mg capsule,extended release 12 hr 90 mg PO BID Qty: 30 1RF prednisone 20 mg tablet See Taper PO QDAY Qty: 7 0RF Taper: Prednisone Taper 60 mg DAILY for 1 Day and 0 Hour 40 mg DAILY for 2 Days and 0 Hour 20 mg DAILY for 2 Days and 0 Hour Rx Instructions: 60mg once daily for 1 day 40mg once daily for 2 days 20mg once daily for 2 days doxycycline hyclate 100 mg capsule 100 mg PO BID Qty: 14 0RF albuterol sulfate [Ventolin HFA] 90 mcg/actuation HFA aerosol inhaler 2 puff inhalation Q6H PRN (Reason: shortness of breath or wheezing) Qty: 8.5 0RF ibuprofen 600 mg tablet 600 mg PO Q8H PRN (Reason: fever or pain) Qty: 30 0RF albuterol sulfate [Ventolin HFA] 90 mcg/actuation HFA aerosol inhaler 2 puff inhalation Q6H PRN (Reason: shortness of breath or wheezing) Qty: 8.5 0RF azithromycin 250 mg tablet See Rx Instructions .ROUTE .COMPLEX Qty: 6 0RF Rx Instructions: For 250 mg dose pack: take 500 mg today (day 1), then 250 mg for 4 days (days 2-5) diltiazem HCl 120 mg capsule,extended release 12 hr 120 mg PO BID Qty: 30 0RF metoprolol tartrate 50 mg tablet 50 mg PO BID Qty: 60 0RF albuterol sulfate [Ventolin HFA] 90 mcg/actuation HFA aerosol inhaler 2 puff inhalation Q6H PRN (Reason: shortness of breath or wheezing) Qty: 8.5 0RF levalbuterol tartrate [Xopenex HFA] 45 mcg/actuation HFA aerosol inhaler 2 inh inhalation Q6H Qty: 15 0RF Problem List Clinical Impression: Anxiety about health, Chronic shortness of breath Patient/Caregiver Discharge Instructions Education Materials: ED Shortness of Breath (Dyspnea) Additional Instructions: Please follow up with your primary care doctor in the next 24-48hrs for any worsening symptoms return here immediately Print Language: Welsh Stand Alone Forms: Serena Award Info., Patient Portal Info Letter Attestation Attestation The patient was seen by the midlevel practitioner. I, the co-signing physician, was present during the entire ER visit. While I did not physically examine the patient, I was available for consultation as needed.
--- NOTE | 2024-07-19 13:18 | PC.CC ---
BROOKLYNN Juarez was consulted regarding getting the patient a ride back home. ASW arranging transportation.
== END 2024-07-19 13:10 | disposition home or self-care (01) ==
LOC: SERX 13:14
PROVIDERS: Emergency Provider Emergency Medicine; PCP Physician Assistant
DX: F41.9 Anxiety disorder, unspecified (principal); R06.02 Shortness of breath
CPT/HCPCS: 99281

== ENCOUNTER 2024-08-05 07:42 | Emergency (ER) | payer MEDICARE, SELFPAY ==
[2024-08-05 07:45] VITALS: BP 170/90; PULSE 84; RESP 17; TEMP 36.9; O2SAT 97
[2024-08-05 07:48] VITALS: PULSE 92; RESP 18; O2SAT 98
[2024-08-05 07:59] VITALS: BMI 30.2
[2024-08-05 08:01] VITALS: BP 142/83; PULSE 81; RESP 19; TEMP 36.9; O2SAT 97
--- NOTE | 2024-08-05 08:05 | XR_ITS ---
Examination: PA chest single view TECHNIQUE: Upright PA chest single view Exam date and time: 03/05/2024 0835 hours INDICATIONS: Coughing beginning 2 days ago. FINDINGS: Normal heart size Minimal accentuation basilar bronchovascular markings No lobar pneumonia Moderate osteopenia IMPRESSION: Mild basilar bronchitis pattern
--- NOTE | 2024-08-05 09:25 | PD.EDSOB ---
ED SOB =RME/HPI General Chief Complaint: Shortness of Breath/Dyspnea Stated Complaint: SOB Time Seen by Provider: 08/05/24 08:06 Arrival date/time: 08/05/24 07:42 58-year-old female with medical history significant for COPD, asthma presents to the ER today with concerns for cough, congestion and runny nose Limitations: no limitations Related Data Home Medications ?Medication ?Instructions ?Recorded ?Confirmed diltiazem HCl 30 mg tablet 30 mg PO QID 08/17/22 08/17/22 flecainide 50 mg tablet 50 mg PO BID 08/17/22 08/17/22 Previous Rx's ?Medication ?Instructions ?Recorded diltiazem HCl 90 mg 90 mg PO BID Tachycardia #30 caps 08/17/22 capsule,extended release 12 hr diltiazem HCl 90 mg 90 mg PO BID #30 caps 04/01/23 capsule,extended release 12 hr diltiazem HCl 90 mg tablet 90 mg PO BID #60 tabs 09/22/23 albuterol sulfate 90 mcg/actuation 2 inh inhalation Q4H PRN shortness 10/13/23 aerosol inhaler of breath or wheezing #8.5 grams diltiazem HCl 90 mg 90 mg PO BID #30 caps 12/29/23 capsule,extended release 12 hr doxycycline hyclate 100 mg capsule 100 mg PO BID #14 caps 02/24/24 prednisone 20 mg tablet See Taper PO QDAY #7 tabs 02/24/24 albuterol sulfate 90 mcg/actuation 2 puff inhalation Q6H PRN 03/13/24 aerosol inhaler (Ventolin HFA) shortness of breath or wheezing #8.5 grams ibuprofen 600 mg tablet 600 mg PO Q8H PRN fever or pain 04/16/24 #30 tabs albuterol sulfate 90 mcg/actuation 2 puff inhalation Q6H PRN 04/21/24 aerosol inhaler (Ventolin HFA) shortness of breath or wheezing #8.5 grams ibuprofen 600 mg tablet 600 mg PO Q6H #30 tabs 04/29/24 azithromycin 250 mg tablet See Rx Instructions PO .COMPLEX #6 05/13/24 tabs diltiazem HCl 120 mg 120 mg PO BID #30 caps 05/16/24 capsule,extended release 12 hr levalbuterol tartrate 45 2 inh inhalation Q4H PRN shortness 06/14/24 mcg/actuation aerosol inhaler of breath or wheezing #15 grams (Xopenex HFA) metoprolol tartrate 50 mg tablet 50 mg PO BID #60 tabs 06/18/24 albuterol sulfate 90 mcg/actuation 2 inh inhalation Q6H PRN shortness 06/24/24 breath activated powder inhaler of breath or wheezing #1 ea levalbuterol HCl 1.25 mg/3 mL 1.25 mg (3 mL) inhalation Q4H #90 06/29/24 solution for nebulization mL albuterol sulfate 90 mcg/actuation 2 puff inhalation Q6H PRN 07/13/24 aerosol inhaler (Ventolin HFA) shortness of breath or wheezing #8.5 grams levalbuterol tartrate 45 2 inh inhalation Q6H #15 grams 07/13/24 mcg/actuation aerosol inhaler (Xopenex HFA) acetaminophen 500 mg capsule 1,000 mg (2 x 500 mg) PO Q8HR PRN 07/14/24 pain #30 caps cyclobenzaprine 5 mg tablet 5 mg PO TID PRN muscle spasm #30 07/14/24 tabs doxycycline monohydrate 100 mg 100 mg PO BID #10 caps 07/18/24 capsule albuterol sulfate 1.25 mg/3 mL 1.25 mg (3 mL) inhalation QID PRN 08/05/24 solution for nebulization bronchospasm #75 mL fluticasone propionate 50 2 spray intranasal QDAY PRN 08/05/24 mcg/actuation nasal allergy symptoms #16 mL spray,suspension (Flonase Allergy Relief) Allergies Allergy/AdvReac Type Severity Reaction Status Date / Time ketorolac [From Toradol] Allergy Intermediate Rash Verified 07/19/24 12:39 Review of Systems Review of Systems Systems Reviewed: All systems reviewed, normal except as documented Constitutional Constitutional: Reports system reviewed and no additional complaints, except as documented, Denies fever(s) and Denies headache(s) Eyes Eyes: Reports system reviewed and no additional complaints, except as documented and Denies blurry vision ENT Ears, Nose, Mouth, and Throat: Reports system reviewed and no additional complaints, except as documented, Denies headache(s), Reports nasal congestion and Reports nasal discharge Cardiovascular Cardiovascular: Reports system reviewed and no additional complaints, except as documented, Denies chest pain and Denies dyspnea Respiratory Respiratory: Reports system reviewed and no additional complaints, except as documented, Reports chest congestion, Reports cough and Denies dyspnea Gastrointestinal Gastrointestinal: Reports system reviewed and no additional complaints, except as documented and Denies abdominal pain Integumentary/Breasts Skin/Breast: Reports system reviewed and no additional complaints, except as documented and Denies rash Neurologic Neurologic: Reports system reviewed and no additional complaints, except as documented, Reports as per HPI and Denies headache(s) Past Medical History Past Medical History NEUROLOGIC: Negative Neurological Disorders CARDIAC: Positive Cardiac Arrhythmia, Atrial Fibrillation and Hypertension; Negative Cardiac Disorders or Congestive Heart Failure RESPIRATORY: Positive Chronic Obstructive Pulmonary Disease (COPD) and Asthma GASTROINTESTINAL: Negative Gastrointestinal Disorders GENITOURINARY: Negative Genitourinary Disorders or Renal Disease MUSCULOSKELETAL: Positive Arthritis; Negative Musculoskeletal Disorders ENT: Positive Deafness ENDOCRINE: Negative Diabetes Mellitus Type 1 or Diabetes Mellitus Type 2 HEMATOLOGIC: Negative Blood Disorders or Sickle Cell Disease OTHER HISTORY: Positive Ovarian Cancer; Negative Blood Transfusions, Blood Transfusion Reaction or Anesthesia Reactions Surgical History SURGICAL: Positive Hysterectomy Social History SMOKING STATUS: Current every day smoker SUBSTANCE USE: does not use ED Exam General Limitations: Present no limitations General appearance: Present alert and in no apparent distress Head Head exam: Present atraumatic Eye Eye exam: Present normal appearance, PERRL and EOMI; Absent conjunctival injection ENT ENT exam: Present normal exam, normal oropharynx and mucous membranes moist Neck Neck exam: Present normal inspection, full ROM and trachea midline Chest Chest inspection: Present normal inspection and symmetric chest wall rise Respiratory Respiratory exam: Present wheezes (Mild right upper expiratory wheeze); Absent respiratory distress, stridor, accessory muscle use, prolonged expiratory phase or other Cardiovascular Cardiovascular exam: Present regular rate, normal rhythm and normal heart sounds Abdominal Exam Abdominal exam: Present soft and normal bowel sounds; Absent distention, tenderness, guarding, rebound or rigidity Extremities Exam Extremities exam: Present normal inspection and full ROM Back Exam Back exam: Present normal inspection and full ROM Neurological Exam Neurological exam: Present alert, oriented X3 and CN II-XII intact Psychiatric Psychiatric exam: Present normal affect and normal mood Skin Skin exam: Present warm, dry, intact and normal color Course Quality Measures none Orders Category Date Time Status XR chest 1V Stat Exams 08/05/24 08:05 Completed Vital Signs Vital signs: Vital Signs Temperature 98.4 F 08/05/24 07:45 Pulse Rate 84 08/05/24 07:45 Respiratory Rate 17 08/05/24 07:45 Blood Pressure 170/90 H 08/05/24 07:45 Pulse Oximetry (%) 97 08/05/24 07:45 Oxygen Delivery Method Nasal Cannula 08/05/24 07:45 Oxygen Flow Rate 6 08/05/24 07:45 O2 saturation 97% room air within normal limits patient is not on oxygen Shortness of Breath / Dyspnea MDM Narrative MDM Narrative:: 58-year-old female with medical history significant for COPD, asthma presents to the ER today with concerns for cough, congestion and runny nose On exam patient well-appearing patient does not appear ill or toxic in no acute distress Chest x-ray obtained no acute emergent findings noted no pneumonia patient does have bronchitis pattern Patient be discharged home with Flonase nasal spray as well as nebulized breathing treatments Patient discharged home in no distress to follow-up with primary care doctor in the next 24 to 48 hours and for any worsening symptoms to return to the ER immediately Patient data External records reviewed:: [facility] previous records Clinical information provided by:: patient Social determinants that could affect healthcare access:: none Patient has the following chronic illnesses:: See history How is presenting disease/condition affected by chronic disease/condition?: caused by Evaluation data The following diagnostics were reviewed and interpreted by me:: radiology exam(s) Lab and/or radiology exams considered but not ordered:: Radiology obtained Interpretation Summary: Reviewed by me Medications / Prescriptions Medications or Prescriptions considered but not ordered:: Given Medication administrations:: Given Consultations Consultation(s) initiated? (list below): No Diagnosis Shortness of Breath Differential Diagnosis: acute exacerbation of chronic obstructive airways disease, community acquired pneumonia and pulmonary embolism Most likely diagnosis given after review of the tests above:: Asthma Admission Indicated Admission indicated?: not indicated Admission Request Was there a request for admission?: No Disposition Plan Disposition Plan: Discharge Discharge Attestation Discharge Attestation: The patient and all family members were given an opportunity to ask questions and understood the discharge instructions. Discharge instructions specifically effects, indications for sooner follow up or return to the emergency department, and the expected course of current diagnosis. Patient condition: Stable Discharge Plan Plan Patient Disposition: HOME (Self Care) Disposition Comment: Stable Prescriptions/Referrals Prescriptions/Med Rec: New fluticasone propionate [Flonase Allergy Relief] 50 mcg/actuation spray,suspension 2 spray intranasal QDAY PRN (Reason: allergy symptoms) Qty: 16 0RF Rx Instructions: administer into each nostril albuterol sulfate 1.25 mg/3 mL solution for nebulization 1.25 mg inhalation QID PRN (Reason: bronchospasm) Qty: 75 0RF No Action diltiazem HCl 90 mg tablet 90 mg PO BID Qty: 60 0RF ibuprofen 600 mg tablet 600 mg PO Q6H Qty: 30 0RF levalbuterol tartrate [Xopenex HFA] 45 mcg/actuation HFA aerosol inhaler 2 inh inhalation Q4H PRN (Reason: shortness of breath or wheezing) Qty: 15 0RF albuterol sulfate 90 mcg/actuation aerosol powdr breath activated 2 inh inhalation Q6H PRN (Reason: shortness of breath or wheezing) Qty: 1 0RF levalbuterol HCl 1.25 mg/3 mL solution for nebulization 1.25 mg inhalation Q4H Qty: 90 0RF acetaminophen 500 mg capsule 1,000 mg PO Q8HR PRN (Reason: pain) Qty: 30 0RF cyclobenzaprine 5 mg tablet 5 mg PO TID PRN (Reason: muscle spasm) Qty: 30 0RF doxycycline monohydrate 100 mg capsule 100 mg PO BID Qty: 10 0RF flecainide 50 mg tablet 50 mg PO BID diltiazem HCl 30 mg tablet 30 mg PO QID diltiazem HCl 90 mg capsule,extended release 12 hr 90 mg PO BID Qty: 30 0RF diltiazem HCl 90 mg capsule,extended release 12 hr 90 mg PO BID Qty: 30 0RF albuterol sulfate 90 mcg/actuation HFA aerosol inhaler 2 inh inhalation Q4H PRN (Reason: shortness of breath or wheezing) Qty: 8.5 0RF diltiazem HCl 90 mg capsule,extended release 12 hr 90 mg PO BID Qty: 30 1RF prednisone 20 mg tablet See Taper PO QDAY Qty: 7 0RF Taper: Prednisone Taper 60 mg DAILY for 1 Day and 0 Hour 40 mg DAILY for 2 Days and 0 Hour 20 mg DAILY for 2 Days and 0 Hour Rx Instructions: 60mg once daily for 1 day 40mg once daily for 2 days 20mg once daily for 2 days doxycycline hyclate 100 mg capsule 100 mg PO BID Qty: 14 0RF albuterol sulfate [Ventolin HFA] 90 mcg/actuation HFA aerosol inhaler 2 puff inhalation Q6H PRN (Reason: shortness of breath or wheezing) Qty: 8.5 0RF ibuprofen 600 mg tablet 600 mg PO Q8H PRN (Reason: fever or pain) Qty: 30 0RF albuterol sulfate [Ventolin HFA] 90 mcg/actuation HFA aerosol inhaler 2 puff inhalation Q6H PRN (Reason: shortness of breath or wheezing) Qty: 8.5 0RF azithromycin 250 mg tablet See Rx Instructions .ROUTE .COMPLEX Qty: 6 0RF Rx Instructions: For 250 mg dose pack: take 500 mg today (day 1), then 250 mg for 4 days (days 2-5) diltiazem HCl 120 mg capsule,extended release 12 hr 120 mg PO BID Qty: 30 0RF metoprolol tartrate 50 mg tablet 50 mg PO BID Qty: 60 0RF albuterol sulfate [Ventolin HFA] 90 mcg/actuation HFA aerosol inhaler 2 puff inhalation Q6H PRN (Reason: shortness of breath or wheezing) Qty: 8.5 0RF levalbuterol tartrate [Xopenex HFA] 45 mcg/actuation HFA aerosol inhaler 2 inh inhalation Q6H Qty: 15 0RF Referrals: No Primary/Family,Physician [Primary Care Provider] - In 1 week Problem List Clinical Impression: Congested nose, Cough Patient/Caregiver Discharge Instructions Additional Instructions: Please follow up with your primary care doctor in the next 24-48hrs for any worsening symptoms return here immediately Print Language: Gabonese Stand Alone Forms: Serena Award Info., Patient Portal Info Letter PA/WINE [employer] WORKER Supervising Physician PA/[employer] WORKER Supervising Physician: Dr Olguin
== END 2024-08-05 09:35 | disposition home or self-care (01) ==
PROVIDERS: Emergency Provider Emergency Medicine
DX: R09.81 Nasal congestion (principal); R05.9 Cough, unspecified; J44.89 Other specified chronic obstructive pulmonary disease
CPT/HCPCS: 71045; 99283

== ENCOUNTER 2024-08-09 07:25 | Emergency (ER) | payer MEDICARE, SELFPAY ==
[2024-08-09 07:40] VITALS: BP 157/83; PULSE 89; RESP 19; TEMP 37.1; O2SAT 97
[2024-08-09] MEDS: DEXAMETHASONE SOD PHOS INJ 10 MG/ML VIAL PO (07:53)
--- NOTE | 2024-08-09 08:10 | PC.NURSE ---
RT at bedside with pt for breathing treatment.
[2024-08-09] MEDS: ALBUTEROL/IPRATROPIUM (Duoneb) RT SOL 3 ML NEBU INH (08:11)
[2024-08-09 08:52] VITALS: BP 132/77; PULSE 76; RESP 18; TEMP 37; O2SAT 95
[2024-08-09 09:25] VITALS: PULSE 87; RESP 20; O2SAT 97
--- NOTE | 2024-08-09 09:39 | PD.EDSOB ---
ED SOB =RME/HPI General Chief Complaint: Shortness of Breath/Dyspnea Stated Complaint: I CAN'T BREATH, CAN'T GET NO AIR ; COUGH Time Seen by Provider: 08/09/24 07:29 Arrival date/time: 08/09/24 07:25 58-year-old female well-known to this emergency department presents emergency department for complaints of cough and nasal congestion patient reports no chest pain no abdominal Limitations: no limitations Related Data Home Medications ?Medication ?Instructions ?Recorded ?Confirmed diltiazem HCl 30 mg tablet 30 mg PO QID 08/17/22 08/17/22 flecainide 50 mg tablet 50 mg PO BID 08/17/22 08/17/22 Previous Rx's ?Medication ?Instructions ?Recorded diltiazem HCl 90 mg 90 mg PO BID Tachycardia #30 caps 08/17/22 capsule,extended release 12 hr diltiazem HCl 90 mg 90 mg PO BID #30 caps 04/01/23 capsule,extended release 12 hr diltiazem HCl 90 mg tablet 90 mg PO BID #60 tabs 09/22/23 albuterol sulfate 90 mcg/actuation 2 inh inhalation Q4H PRN shortness 10/13/23 aerosol inhaler of breath or wheezing #8.5 grams diltiazem HCl 90 mg 90 mg PO BID #30 caps 12/29/23 capsule,extended release 12 hr doxycycline hyclate 100 mg capsule 100 mg PO BID #14 caps 02/24/24 prednisone 20 mg tablet See Taper PO QDAY #7 tabs 02/24/24 albuterol sulfate 90 mcg/actuation 2 puff inhalation Q6H PRN 03/13/24 aerosol inhaler (Ventolin HFA) shortness of breath or wheezing #8.5 grams ibuprofen 600 mg tablet 600 mg PO Q8H PRN fever or pain 04/16/24 #30 tabs albuterol sulfate 90 mcg/actuation 2 puff inhalation Q6H PRN 04/21/24 aerosol inhaler (Ventolin HFA) shortness of breath or wheezing #8.5 grams ibuprofen 600 mg tablet 600 mg PO Q6H #30 tabs 04/29/24 azithromycin 250 mg tablet See Rx Instructions PO .COMPLEX #6 05/13/24 tabs diltiazem HCl 120 mg 120 mg PO BID #30 caps 05/16/24 capsule,extended release 12 hr levalbuterol tartrate 45 2 inh inhalation Q4H PRN shortness 06/14/24 mcg/actuation aerosol inhaler of breath or wheezing #15 grams (Xopenex HFA) metoprolol tartrate 50 mg tablet 50 mg PO BID #60 tabs 06/18/24 albuterol sulfate 90 mcg/actuation 2 inh inhalation Q6H PRN shortness 06/24/24 breath activated powder inhaler of breath or wheezing #1 ea levalbuterol HCl 1.25 mg/3 mL 1.25 mg (3 mL) inhalation Q4H #90 06/29/24 solution for nebulization mL albuterol sulfate 90 mcg/actuation 2 puff inhalation Q6H PRN 07/13/24 aerosol inhaler (Ventolin HFA) shortness of breath or wheezing #8.5 grams levalbuterol tartrate 45 2 inh inhalation Q6H #15 grams 07/13/24 mcg/actuation aerosol inhaler (Xopenex HFA) acetaminophen 500 mg capsule 1,000 mg (2 x 500 mg) PO Q8HR PRN 07/14/24 pain #30 caps cyclobenzaprine 5 mg tablet 5 mg PO TID PRN muscle spasm #30 07/14/24 tabs doxycycline monohydrate 100 mg 100 mg PO BID #10 caps 07/18/24 capsule albuterol sulfate 1.25 mg/3 mL 1.25 mg (3 mL) inhalation QID PRN 08/05/24 solution for nebulization bronchospasm #75 mL fluticasone propionate 50 2 spray intranasal QDAY PRN 08/05/24 mcg/actuation nasal allergy symptoms #16 mL spray,suspension (Flonase Allergy Relief) Allergies Allergy/AdvReac Type Severity Reaction Status Date / Time ketorolac [From Toradol] Allergy Intermediate Rash Verified 08/09/24 07:27 Review of Systems Review of Systems Systems Reviewed: All systems reviewed, normal except as documented Constitutional Constitutional: Reports system reviewed and no additional complaints, except as documented, Denies fever(s) and Denies headache(s) Eyes Eyes: Reports system reviewed and no additional complaints, except as documented and Denies blurry vision ENT Ears, Nose, Mouth, and Throat: Reports system reviewed and no additional complaints, except as documented, Denies headache(s), Denies nasal congestion and Denies nasal discharge Cardiovascular Cardiovascular: Reports system reviewed and no additional complaints, except as documented, Denies chest pain and Denies dyspnea Respiratory Respiratory: Reports system reviewed and no additional complaints, except as documented, Reports chest congestion, Reports cough and Denies dyspnea Gastrointestinal Gastrointestinal: Reports system reviewed and no additional complaints, except as documented and Denies abdominal pain Integumentary/Breasts Skin/Breast: Reports system reviewed and no additional complaints, except as documented and Denies rash Neurologic Neurologic: Reports system reviewed and no additional complaints, except as documented, Reports as per HPI and Denies headache(s) Past Medical History Past Medical History NEUROLOGIC: Negative Neurological Disorders CARDIAC: Negative Cardiac Disorders ED Exam General Limitations: Present no limitations General appearance: Present alert and in no apparent distress Head Head exam: Present atraumatic and normal inspection Eye Eye exam: Present normal appearance, PERRL and EOMI; Absent conjunctival injection ENT ENT exam: Present normal exam, normal oropharynx and mucous membranes moist Neck Neck exam: Present normal inspection, full ROM and trachea midline Chest Chest inspection: Present normal inspection and symmetric chest wall rise Respiratory Respiratory exam: Present respiratory distress and wheezes; Absent stridor, accessory muscle use or prolonged expiratory phase Cardiovascular Cardiovascular exam: Present regular rate, normal rhythm and normal heart sounds Abdominal Exam Abdominal exam: Present soft and normal bowel sounds; Absent distention, tenderness, guarding, rebound or rigidity Extremities Exam Extremities exam: Present normal inspection and full ROM Back Exam Back exam: Present normal inspection and full ROM Neurological Exam Neurological exam: Present alert, oriented X3 and CN II-XII intact Psychiatric Psychiatric exam: Present normal affect and normal mood Skin Skin exam: Present warm, dry, intact and normal color Course Quality Measures none Orders Category Date Time Status Albuterol/Ipratr Rt Lauren [Duoneb Rt Lauren] Med 08/09/24 07:45 Discontinued 3 ml INH X1 ONE Dexamethasone Inj [Decadron Inj] Med 08/09/24 07:45 Discontinued 10 mg PO X1 ONE Vital Signs Vital signs: Vital Signs Temperature 98.8 F 08/09/24 07:40 Pulse Rate 89 08/09/24 07:40 Respiratory Rate 19 08/09/24 07:40 Blood Pressure 157/83 H 08/09/24 07:40 Pulse Oximetry (%) 97 08/09/24 07:40 Oxygen Delivery Method Room Air 08/09/24 07:40 O2 saturation 97% room air with normal limits Shortness of Breath / Dyspnea MDM Narrative MDM Narrative:: 58-year-old female well-known to this emergency department presents emergency department for complaints of cough and nasal congestion patient reports no chest pain no abdominal On exam patient has chronic wheeze patient given breathing treatment as well as steroids Patient was allowed to sleep here for couple of hours and rest prior to discharge Patient reports at time of discharge she feels significantly better and would like to go home Patient discharged home in no distress to follow-up with primary care doctor in the next 24 to 48 hours and for any worsening symptoms to return to the ER immediately Patient data External records reviewed:: [facility] previous records Clinical information provided by:: patient Social determinants that could affect healthcare access:: none Patient has the following chronic illnesses:: None How is presenting disease/condition affected by chronic disease/condition?: caused by Evaluation data The following diagnostics were reviewed and interpreted by me:: other (specify) (N/A) Lab and/or radiology exams considered but not ordered:: Consider not ordered Interpretation Summary: N/A Medications / Prescriptions Medications or Prescriptions considered but not ordered:: Given Medication administrations:: Medication Administration History Discontinued Medications Albuterol/Ipratropium (Albuterol/Ipratropium (Duoneb) Rt Lauren 3 Ml Nebu) 3 ml INH X1 ONE Stop: 08/09/24 07:46 Last Admin: 08/09/24 08:11 Dose: 3 ml Documented By: TONYA Comments: given by RT Dexamethasone Sodium Phosphate (Dexamethasone Sod Phos Inj 10 Mg/Ml Vial) 10 mg PO X1 ONE Stop: 08/09/24 07:46 Last Admin: 08/09/24 07:53 Dose: 10 mg Documented By: TONYA Comments: given PO; per [facility] orders Given Consultations Consultation(s) initiated? (list below): No Diagnosis Shortness of Breath Differential Diagnosis: acute exacerbation of chronic obstructive airways disease, congestive heart failure, asthma with exacerbation and pulmonary embolism Most likely diagnosis given after review of the tests above:: COPD exacerbation Admission Indicated Admission indicated?: not indicated Admission Request Was there a request for admission?: No Disposition Plan Disposition Plan: Discharge Discharge Attestation Discharge Attestation: The patient and all family members were given an opportunity to ask questions and understood the discharge instructions. Discharge instructions specifically effects, indications for sooner follow up or return to the emergency department, and the expected course of current diagnosis. Patient condition: Stable Discharge Plan Plan Patient Disposition: HOME (Self Care) Disposition Comment: Stable Prescriptions/Referrals Prescriptions/Med Rec: No Action diltiazem HCl 90 mg tablet 90 mg PO BID Qty: 60 0RF ibuprofen 600 mg tablet 600 mg PO Q6H Qty: 30 0RF levalbuterol tartrate [Xopenex HFA] 45 mcg/actuation HFA aerosol inhaler 2 inh inhalation Q4H PRN (Reason: shortness of breath or wheezing) Qty: 15 0RF albuterol sulfate 90 mcg/actuation aerosol powdr breath activated 2 inh inhalation Q6H PRN (Reason: shortness of breath or wheezing) Qty: 1 0RF levalbuterol HCl 1.25 mg/3 mL solution for nebulization 1.25 mg inhalation Q4H Qty: 90 0RF acetaminophen 500 mg capsule 1,000 mg PO Q8HR PRN (Reason: pain) Qty: 30 0RF cyclobenzaprine 5 mg tablet 5 mg PO TID PRN (Reason: muscle spasm) Qty: 30 0RF doxycycline monohydrate 100 mg capsule 100 mg PO BID Qty: 10 0RF flecainide 50 mg tablet 50 mg PO BID diltiazem HCl 30 mg tablet 30 mg PO QID diltiazem HCl 90 mg capsule,extended release 12 hr 90 mg PO BID Qty: 30 0RF diltiazem HCl 90 mg capsule,extended release 12 hr 90 mg PO BID Qty: 30 0RF albuterol sulfate 90 mcg/actuation HFA aerosol inhaler 2 inh inhalation Q4H PRN (Reason: shortness of breath or wheezing) Qty: 8.5 0RF diltiazem HCl 90 mg capsule,extended release 12 hr 90 mg PO BID Qty: 30 1RF prednisone 20 mg tablet See Taper PO QDAY Qty: 7 0RF Taper: Prednisone Taper 60 mg DAILY for 1 Day and 0 Hour 40 mg DAILY for 2 Days and 0 Hour 20 mg DAILY for 2 Days and 0 Hour Rx Instructions: 60mg once daily for 1 day 40mg once daily for 2 days 20mg once daily for 2 days doxycycline hyclate 100 mg capsule 100 mg PO BID Qty: 14 0RF albuterol sulfate [Ventolin HFA] 90 mcg/actuation HFA aerosol inhaler 2 puff inhalation Q6H PRN (Reason: shortness of breath or wheezing) Qty: 8.5 0RF ibuprofen 600 mg tablet 600 mg PO Q8H PRN (Reason: fever or pain) Qty: 30 0RF albuterol sulfate [Ventolin HFA] 90 mcg/actuation HFA aerosol inhaler 2 puff inhalation Q6H PRN (Reason: shortness of breath or wheezing) Qty: 8.5 0RF azithromycin 250 mg tablet See Rx Instructions .ROUTE .COMPLEX Qty: 6 0RF Rx Instructions: For 250 mg dose pack: take 500 mg today (day 1), then 250 mg for 4 days (days 2-5) diltiazem HCl 120 mg capsule,extended release 12 hr 120 mg PO BID Qty: 30 0RF metoprolol tartrate 50 mg tablet 50 mg PO BID Qty: 60 0RF albuterol sulfate [Ventolin HFA] 90 mcg/actuation HFA aerosol inhaler 2 puff inhalation Q6H PRN (Reason: shortness of breath or wheezing) Qty: 8.5 0RF levalbuterol tartrate [Xopenex HFA] 45 mcg/actuation HFA aerosol inhaler 2 inh inhalation Q6H Qty: 15 0RF fluticasone propionate [Flonase Allergy Relief] 50 mcg/actuation spray,suspension 2 spray intranasal QDAY PRN (Reason: allergy symptoms) Qty: 16 0RF Rx Instructions: administer into each nostril albuterol sulfate 1.25 mg/3 mL solution for nebulization 1.25 mg inhalation QID PRN (Reason: bronchospasm) Qty: 75 0RF Referrals: No Primary/Family,Physician [Primary Care Provider] - In 1 week Problem List Clinical Impression: Chronic shortness of breath Patient/Caregiver Discharge Instructions Education Materials: ED Shortness of Breath (Dyspnea) Additional Instructions: Please follow up with your primary care doctor in the next 24-48hrs for any worsening symptoms return here immediately Print Language: Czech Stand Alone Forms: Serena Award Info., Patient Portal Info Letter PA/[employer] Supervising Physician PA/[employer]ER Supervising Physician: Dr. Mejia
[2024-08-09 11:21] VITALS: BP 130/82; PULSE 86; RESP 18; TEMP 37.1; O2SAT 95
== END 2024-08-09 11:21 | disposition home or self-care (01) ==
PROVIDERS: Emergency Provider Emergency Medicine
DX: R06.02 Shortness of breath (principal)
CPT/HCPCS: 94640; 99283; A9270; J1100

== ENCOUNTER 2024-08-11 06:25 | Observation (INO) | payer MEDICARE, MEDICAID, SELFPAY ==
[2024-08-11] VITALS (15 sets, daily range): BP systolic 108–156; BP diastolic 59–88; PULSE 67–105; RESP 18–92; TEMP 36.4–37.1; O2SAT 91–100; BMI 29.8; BMI 30.8
--- NOTE | 2024-08-11 06:36 | XR_ITS ---
Examination: AP chest single view TECHNIQUE: AP portable semiupright chest single view Exam date and time: August 11, 2024 0712 hours INDICATIONS: COPD history with difficulty breathing today FINDINGS: Mild hyperexpansion Normal heart size Mild accentuation basilar bronchovascular markings No pneumonia, pulmonary osteopenia IMPRESSION: COPD Basilar bronchitis pattern
[2024-08-11] MEDS: LEVALBUTEROL RT 1.25 MG/0.5 ML NEBU 2.5 MG INH (06:54)
[2024-08-11] MEDS: Magnesium Sulfate 2 GM Ivpb 2 GM/50 ML BAG IV (06:57)
[2024-08-11] MEDS: MethylPREDNISolone SOD SUCC 62.5 MG/ML 2ML VIAL 125 MG IVP (06:57)
[2024-08-11] MEDS: LORazepam 2 MG/ML VIAL 0.5 MG IVP (06:58)
--- NOTE | 2024-08-11 07:03 | PD.EDSOB ---
ED SOB =RME/HPI General Chief Complaint: Shortness of Breath/Dyspnea Stated Complaint: TROUBLE BREATHING Time Seen by Provider: 08/11/24 06:28 Arrival date/time: 08/11/24 06:25 RME / HPI RME / HPI Narrative: This section includes all my notes and documentations, including HPI, PE, MDM, Procedure Notes, and PLAN. Smith Mayorga MD HPI: 58 year old female with history of COPD, asthma, SVT, hearing impairment presents to the ED for complaint of shortness of breath beginning last night. Accompanied by a cough producing white phlegm although reports is not any worse than her usual cough. States she used her Levalbuterol inhaler without improvement. Was unable to use her nebulizer machine due to running out of solution. Denies fevers, chills, chest pain, abdominal pain, n/v/d, or urinary symptoms. No other complaints. ROS: Respiratory: negative except as documented in HPI. Gastrointestinal: negative except as documented in HPI. Genitourinary: negative except as documented in HPI. Musculoskeletal: negative except as documented in HPI. Skin: negative except as documented in HPI. Neurological: negative except as documented in HPI. Physical Exam: General: Alert and oriented. Moderate respiratory distress. Eyes: Conjunctivae and lids clear. ENT: No nasal congestion. Pharynx normal. Tympanic membrane normal bilaterally. Neck: Supple. No JVD. Heart: RRR. Lungs: Moderate respiratory distress. Decreased air movements with diffuse wheezing. Legs: No clubbing, cyanosis, edema. Skin: Warm and dry. Neuro: Alert and oriented X 3. I reviewed all diagnostic test results. My interpretation of the EKG is sinus rhythm with nonspecific ST-T changes. My interpretation of the chest x-ray is increased bronchial markings. Blood tests remarkable for WBC 25.6, negative D-dimer, negative troponin. COVID/influenza/RSV negative. At this point, diagnoses include COPD exacerbation. Treatment here included Solu-Medrol and MgSO4 2 gram IV and neb treatments and Rocephin and Zithromax. No significant improvement noted subjectively and objectively. I discussed the case with our hospitalist. About the presentation and exam and diagnostics and treatments here. And need of further care in the hospital. Will accept the patient. Smith Mayorga MD Related Data Home Medications ?Medication ?Instructions ?Recorded ?Confirmed diltiazem HCl 30 mg tablet 30 mg PO QID 08/17/22 08/17/22 flecainide 50 mg tablet 50 mg PO BID 08/17/22 08/17/22 Previous Rx's ?Medication ?Instructions ?Recorded diltiazem HCl 90 mg 90 mg PO BID Tachycardia #30 caps 08/17/22 capsule,extended release 12 hr diltiazem HCl 90 mg 90 mg PO BID #30 caps 04/01/23 capsule,extended release 12 hr diltiazem HCl 90 mg tablet 90 mg PO BID #60 tabs 09/22/23 albuterol sulfate 90 mcg/actuation 2 inh inhalation Q4H PRN shortness 10/13/23 aerosol inhaler of breath or wheezing #8.5 grams diltiazem HCl 90 mg 90 mg PO BID #30 caps 12/29/23 capsule,extended release 12 hr doxycycline hyclate 100 mg capsule 100 mg PO BID #14 caps 02/24/24 prednisone 20 mg tablet See Taper PO QDAY #7 tabs 02/24/24 albuterol sulfate 90 mcg/actuation 2 puff inhalation Q6H PRN 03/13/24 aerosol inhaler (Ventolin HFA) shortness of breath or wheezing #8.5 grams ibuprofen 600 mg tablet 600 mg PO Q8H PRN fever or pain 04/16/24 #30 tabs albuterol sulfate 90 mcg/actuation 2 puff inhalation Q6H PRN 04/21/24 aerosol inhaler (Ventolin HFA) shortness of breath or wheezing #8.5 grams ibuprofen 600 mg tablet 600 mg PO Q6H #30 tabs 04/29/24 azithromycin 250 mg tablet See Rx Instructions PO .COMPLEX #6 05/13/24 tabs diltiazem HCl 120 mg 120 mg PO BID #30 caps 05/16/24 capsule,extended release 12 hr levalbuterol tartrate 45 2 inh inhalation Q4H PRN shortness 06/14/24 mcg/actuation aerosol inhaler of breath or wheezing #15 grams (Xopenex HFA) metoprolol tartrate 50 mg tablet 50 mg PO BID #60 tabs 06/18/24 albuterol sulfate 90 mcg/actuation 2 inh inhalation Q6H PRN shortness 06/24/24 breath activated powder inhaler of breath or wheezing #1 ea levalbuterol HCl 1.25 mg/3 mL 1.25 mg (3 mL) inhalation Q4H #90 06/29/24 solution for nebulization mL albuterol sulfate 90 mcg/actuation 2 puff inhalation Q6H PRN 07/13/24 aerosol inhaler (Ventolin HFA) shortness of breath or wheezing #8.5 grams levalbuterol tartrate 45 2 inh inhalation Q6H #15 grams 07/13/24 mcg/actuation aerosol inhaler (Xopenex HFA) acetaminophen 500 mg capsule 1,000 mg (2 x 500 mg) PO Q8HR PRN 07/14/24 pain #30 caps cyclobenzaprine 5 mg tablet 5 mg PO TID PRN muscle spasm #30 07/14/24 tabs doxycycline monohydrate 100 mg 100 mg PO BID #10 caps 07/18/24 capsule albuterol sulfate 1.25 mg/3 mL 1.25 mg (3 mL) inhalation QID PRN 08/05/24 solution for nebulization bronchospasm #75 mL fluticasone propionate 50 2 spray intranasal QDAY PRN 08/05/24 mcg/actuation nasal allergy symptoms #16 mL spray,suspension (Flonase Allergy Relief) Allergies Allergy/AdvReac Type Severity Reaction Status Date / Time ketorolac [From Toradol] Allergy Intermediate Rash Verified 08/09/24 07:27 Review of Systems Review of Systems Systems Reviewed: All systems reviewed, normal except as documented Past Medical History Past Medical History CARDIAC: Positive Cardiac Arrhythmia, Atrial Fibrillation and Hypertension RESPIRATORY: Positive Chronic Obstructive Pulmonary Disease (COPD) and Asthma MUSCULOSKELETAL: Positive Arthritis ENT: Positive Deafness Surgical History SURGICAL: Positive Hysterectomy Social History SMOKING STATUS: Former smoker SUBSTANCE USE: does not use ED Exam Narrative Physical exam: As noted in HPI Course Course Course Narrative: chest xray ordered to help determine etiology of shortness of breath. Quality Measures none Orders Category Date Time Status Admit to Inpatient Status Routine Admission 08/11/24 09:54 Active Patient Condition Routine Admission 08/11/24 09:53 Ordered Bedside COVID-19 Antigen Test NOW Care 08/11/24 06:33 Active Bedside Influenza A&B Antigen Test NOW Care 08/11/24 06:33 Completed EKG (ED ONLY) *Do not use* NOW Care 08/11/24 06:36 Completed Notify provider NEEDED Care 08/11/24 09:53 Active Saline [Insert IV] NOW Care 08/11/24 06:33 Active EKG (ED Only) Stat Exams 08/11/24 06:36 Ordered XR chest 1V portable Stat Exams 08/11/24 06:36 Completed ABG [Arterial Blood Gas] Stat Lab 08/11/24 09:46 Completed BNP [B-Type Natriuretic Peptide] Stat Lab 08/11/24 07:00 Completed Blood Culture (Lab) Stat Lab 08/11/24 07:53 Received CBC AM DRAW Lab 08/12/24 05:00 Ordered CBC AM DRAW Lab 08/13/24 05:00 Ordered CBC AM DRAW Lab 08/14/24 05:00 Ordered CBC Stat Lab 08/11/24 07:00 Completed CMP [Comprehensive Metabolic Panel] Stat Lab 08/11/24 07:00 Completed CRP [C-Reactive Protein] Stat Lab 08/11/24 07:53 Completed Comprehensive Metabolic Panel AM DRAW Lab 08/12/24 05:00 Ordered Comprehensive Metabolic Panel AM DRAW Lab 08/13/24 05:00 Ordered Comprehensive Metabolic Panel AM DRAW Lab 08/14/24 05:00 Ordered D-Dimer Stat Lab 08/11/24 07:00 Completed ESR [Sed Rate (ESR)] Stat Lab 08/11/24 07:53 Completed Lactate (Lactic Acid) Stat Lab 08/11/24 07:53 Completed Magnesium AM DRAW Lab 08/12/24 05:00 Ordered Magnesium Stat Lab 08/11/24 07:00 Completed Procalcitonin Stat Lab 08/11/24 07:53 Completed RSV [Respiratory Syncytial Virus Ag] Stat Lab 08/11/24 08:45 Completed Thyroid Stimulating Hormone AM DRAW Lab 08/12/24 05:00 Ordered Troponin I Stat Lab 08/11/24 07:00 Completed UA [Urinalysis] Stat Lab 08/11/24 07:27 Ordered Acetaminophen Tab [Tylenol Tab] Med 08/11/24 09:53 Active 650 mg PO Q6H PRN Azithromycin Inj [Zithromax Inj] 500 mg Med 08/11/24 07:26 Discontinued Sodium Chloride 0.9% 250 ml [Ns] 250 ml IV X1 Enoxaparin [Lovenox] Med 08/12/24 09:00 Active 40 mg SC QDAY LORazepam [Ativan Inj] Med 08/11/24 06:34 Discontinued 0.5 mg IVP X1 ONE Levalbuterol Rt [Xopenex Rt Lauren] Med 08/11/24 06:34 Discontinued 2.5 mg INH X1 ONE Magnesium Sulfate 2 GM Ivpb [Magnesium Sulfate Ivpb] Med 08/11/24 06:34 Discontinued 2 gm in 50 ml IV X1 MethylPREDNISolone.* [SoluMEDROL Inj] Med 08/11/24 06:34 Discontinued 125 mg IVP X1 ONE Ondansetron Inj [Zofran Inj] Med 08/11/24 09:53 Active 4 mg IV Q6H PRN cefTRIAXone/D5w 1gm IV premix [Rocephin/D5w 1gm IV Med 08/11/24 07:26 Discontinued premix] 50 ml IV X1 Code Status Routine Oth 08/11/24 09:53 Ordered Oxygen Delivery DAILY RT 08/11/24 09:55 Active Vital Signs Vital signs: Vital Signs Temperature 98.7 F 08/11/24 06:34 Pulse Rate 105 H 08/11/24 06:34 Respiratory Rate 22 H 08/11/24 06:34 Blood Pressure 151/83 H 08/11/24 06:34 Pulse Oximetry (%) 92 L 08/11/24 06:34 Oxygen Delivery Method Room Air 08/11/24 06:34 Pulse ox is 92% on room air which is low. Shortness of Breath / Dyspnea MDM Narrative MDM Narrative:: Dory Frey am scribing for and in the presence of Dr. Mayorga. Patient data External records reviewed:: [facility] previous records (I reviewed ED visit on 08/09/2024) Clinical information provided by:: patient and family Social determinants that could affect healthcare access:: none Patient has the following chronic illnesses:: COPD, asthma, SVT, hearing impairment How is presenting disease/condition affected by chronic disease/condition?: exacerbated by Evaluation data The following diagnostics were reviewed and interpreted by me:: lab results, radiology exam(s) and EKG tracing(s) (My interpretation of the EKG is: Sinus rhythm (91 bpm) with nonspecific ST-T changes. Smith Mayorga MD) Lab and/or radiology exams considered but not ordered:: None Interpretation Summary: Ordering Physician: Smith Mayorga MD Date of Service: 08/11/24 Procedure(s): XR chest 1V portable Accession Number(s): [id number] cc: Smith Mayorga MD; Terrell Padgett MD; Sofía Aquino PA-C~ Examination: AP chest single view TECHNIQUE: AP portable semiupright chest single view Exam date and time: August 11, 2024 0712 hours INDICATIONS: COPD history with difficulty breathing today FINDINGS: Mild hyperexpansion Normal heart size Mild accentuation basilar bronchovascular markings No pneumonia, pulmonary osteopenia IMPRESSION: COPD Basilar bronchitis pattern Dictated By: Terrell Padgett MD Signed By: <Electronically signed by Terrell Padgett MD in OV> 08/11/24 0913 Medications / Prescriptions Medications or Prescriptions considered but not ordered:: None Medication administrations:: Medication Administration History Acetaminophen (Acetaminophen 325 Mg Tablet) 650 mg PO Q6H PRN PRN Reason: Fever >100.3 or pain Stop: 09/10/24 09:52 Enoxaparin Sodium (Enoxaparin Sod Inj 40 Mg/0.4 Ml Syringe) 40 mg SC QDAY YAKELIN Stop: 08/26/24 08:59 Ipratropium [place] (Ipratropium Rt 0.5 Mg/ 2.5 Ml Nebu) 0.5 mg INH Q4HRRT PRN PRN Reason: SHORTNESS OF BREATH OR WHEEZE Stop: 09/10/24 10:59 Levalbuterol HCl (Levalbuterol Rt 0.63 Mg/3 Ml Nebu) 0.63 mg INH Q4HRRT PRN PRN Reason: SHORTNESS OF BREATH OR WHEEZE Stop: 09/10/24 10:59 Ondansetron HCl (Ondansetron Inj 2 Mg/Ml Inj 2 Ml) 4 mg IV Q6H PRN; Protocol PRN Reason: NAUSEA OR VOMITING Stop: 09/10/24 09:52 Discontinued Medications Albuterol/Ipratropium (Albuterol/Ipratropium (Duoneb) Rt Lauren 3 Ml Nebu) 3 ml INH Q4HRRT PRN PRN Reason: shortness of breath Stop: 09/10/24 10:59 Magnesium Sulfate (Magnesium Sulfate Ivpb) 2 gm in 50 mls @ 25 mls/hr IV X1 ONE Stop: 08/11/24 08:33 Last Infusion: 08/11/24 07:03 Dose: Infused Documented By: Admin: 08/11/24 06:57 Dose: 25 mls/hr Documented By: TC Azithromycin 500 mg/ Sodium (Chloride) 250 mls @ 250 mls/hr IV X1 ONE Stop: 08/11/24 08:25 Last Admin: 08/11/24 08:41 Dose: 250 mls/hr Documented By: AM Ceftriaxone Sodium/Dextrose (Rocephin/D5w 1gm Iv Premix) 50 mls @ 100 mls/hr IV X1 ONE Stop: 08/11/24 07:55 Last Infusion: 08/11/24 08:41 Dose: Infused Documented By: Admin: 08/11/24 08:06 Dose: 100 mls/hr Documented By: AM Levalbuterol HCl (Levalbuterol Rt 1.25 Mg/0.5 Ml Nebu) 2.5 mg INH X1 ONE Stop: 08/11/24 06:35 Last Admin: 08/11/24 06:54 Dose: 2.5 mg Documented By: [facility] Lorazepam (Lorazepam 2 Mg/Ml Vial) 0.5 mg IVP X1 ONE Stop: 08/11/24 06:35 Last Admin: 08/11/24 06:58 Dose: 0.5 mg Documented By: TC Methylprednisolone Sodium Succinate (Methylprednisolone Sod Succ 62.5 Mg/Ml 2ml Vial) 125 mg IVP X1 ONE Stop: 08/11/24 06:35 Last Admin: 08/11/24 06:57 Dose: 125 mg Documented By: TC See above Consultations Consultation(s) initiated? (list below): Yes Consultation #1 (Physician, Specialty, Details): I spoke with resident Dr. Cunningham working with Dr. Costa. Discussed patients PMHx, HPI, ED course, exam findings, labs, and radiology results. The hospitalist agree to accept the patient for admission. Diagnosis Shortness of Breath Differential Diagnosis: acute exacerbation of chronic obstructive airways disease, congestive heart failure, community acquired pneumonia, asthma with exacerbation, pulmonary embolism and other (Viral illness) Most likely diagnosis given after review of the tests above:: Acute respiratory failure with hypoxia COPD exacerbation Admission Indicated Admission indicated?: indicated Explain why admission is indicated or not indicated:: No improvement with treatment in the ER Admission Request Was there a request for admission?: Yes Admission Attestation Admission request attestation: Discussed case Hospitalist service regarding admission. Discussed patients ED course, exam findings, labs, and radiology results. The Hospitalist [agrees,declines] to accept the patient for admission. Disposition Plan Disposition Plan: Admit Discharge Plan Plan Patient Disposition: Admit Acute Care w/in Hospital Problem List Clinical Impression: Acute respiratory failure with hypoxia, COPD exacerbation
[2024-08-11 07:13] LABS: Basophils # (Auto) 0.1 Thou/mm3 (0.0-0.2); Basophils % (Auto) 0 % (0-2.5); Eosinophils % (Auto) 0 % (0-10); Hematocrit 46.2 % (36.0-46.0); Hemoglobin 15.4 g/dL (12.0-16.0); Immature Granulocytes % (Auto) 1 % (0-0); Lymphocytes # (Auto) 2.3 Thou/mm3 (1.0-4.8); Lymphocytes % (Auto) 9 % (10-50); Mean Corpuscular HGB Conc 33.3 g/dl (31.0-37.0); Mean Corpuscular Hemoglobin 29.6 pg (25.0-35.0); Mean Corpuscular Volume 89 fL (80-100); Monocytes # (Auto) 1.4 Thou/mm3 (0.0-0.8); Monocytes % (Auto) 5 % (0-12); Neutrophils # (Auto) 21.6 Thou/mm3 (1.8-7.7); Neutrophils % (Auto) 85 % (37-80); Nucleated Red Blood Cell % 0 /100 WBC (0); Platelet Count 395 Thou/mm3 (140-440); RDW Standard Deviation 49.1 fL (36.4-46.3); White Blood Count 25.6 Thou/mm3 (3.6-11.0)
[2024-08-11 07:31] LABS: Alanine Aminotransferase 13 U/L (10-49); Albumin, Serum 5.5 gm/dL (3.5-5.0); Alkaline Phosphatase 147 U/L (46-116); Anion Gap 8 (7-16); Aspartate Amino Transferase 19 U/L (0-34); BUN/Creatinine Ratio 16 Ratio (12-20); Bilirubin,Total 0.6 mg/dL (0.3-1.2); Blood Urea Nitrogen 13 mg/dL (9-23); Calcium 9.9 mg/dL (8.3-10.6); Calcium (Corrected) 9.9 mg/dL (8.5-10.1); Chloride 103 mMol/L (98-107); Creatinine (Component) 0.8 mg/dL (0.6-1.3); Estimated Creatinine Clearance 69.4 mL/min (>60); Globulin 2.7 gm/dL (2.3-3.5); Glucose 109 mg/dL (74-106); Magnesium 1.8 mg/dL (1.6-2.6); Osmolality,Calculated 282 (275-295); Potassium 3.4 mMol/L (3.4-5.1); Sodium 141 mMol/L (136-145); Total Protein 8.2 gm/dL (5.7-8.2); Troponin I < 0.020 ng/mL (0.0-0.045); eGFR > 60 See Note
[2024-08-11 07:58] LABS: D-Dimer 544 ng/mL (<600)
[2024-08-11 07:59] LABS: B-Type Natriuretic Peptide 21 pg/mL (0-100)
[2024-08-11 08:06] LABS: Lactate (Lactic Acid) 1.2 mMol/L (0.4-2.0)
[2024-08-11] MEDS: cefTRIAXone/D5w 1gm IV premix 50 ML IV (08:06)
[2024-08-11] MEDS: AZITHROMYCIN INJ 500 MG in SODIUM CHLORIDE 0.9% 250 ML 250 ML 250 MG IV (08:41)
[2024-08-11 08:52] LABS: C-Reactive Protein 7.8 mg/dL (0.0-0.9); Procalcitonin 0.08 ng/ml (0.0-0.49)
[2024-08-11 09:10] LABS: Respiratory Syncytial Virus Ag Negative (Negative)
[2024-08-11 09:15] LABS: Sed Rate (ESR) 29 mm/hr (0-30)
[2024-08-11 09:50] LABS: Base Excess 3 (-3-3); HCO3 28 mEq/L (20-26); Inspired Oxygen, FIO2 1 %; O2 Saturation 96 % (91-98); PCO2 44 mmHg (32.0-48.0); PO2 73 mmHg (83-108); pH, Arterial 7.41 (7.35-7.45)
[2024-08-11 09:51] LABS: Allen Test Not Performed; Puncture Site Right Radial
--- NOTE | 2024-08-11 12:20 | PC.NURSE ---
receved pt. on the unit, on the rcritz with the O2 on 1 L and pt. vital sgns are wnl will continue to monitor
[2024-08-11] MEDS: POLYETHYLENE GLYCOL 17 GM PACKET PO (15:10)
[2024-08-11] MEDS: IPRATROPIUM RT 0.5 MG/ 2.5 ML NEBU INH ×3 (15:13→22:53)
[2024-08-11] MEDS: LEVALBUTEROL RT 0.63 MG/3 ML NEBU INH ×3 (15:13→22:53)
--- NOTE | 2024-08-11 15:15 | PC.NURSE ---
pt. at rest O2 92% on RA, pt walking without O2 88% and pt. with O2 walking 94% on 1 L
--- NOTE | 2024-08-11 16:16 | ESHP_ITS ---
<Statement entered by Marilee Costa MD - 08/16/24 16:15> I reviewed above note and agree with findings and plans. I have also personally examined the patient with medicine team and went over assessment and plan with medical team including internal sales and resident physician. Documentation for date of: 08/11/24 HPI History of Present Illness History of present illness: Corinna is a 58-year-old female past medical history of COPD, SVT, hypertension, OA, hard of hearing, ovarian cancer who presents with a week of shortness of breath and nasal congestion. She was last seen in the ED on the fifth for similar presentation. Patient denies chest pain and states that she feels short of breath when walking and performing activities. At home she is not on oxygen however she is in the process of obtaining home oxygen. She states that she has inhalers at home for her COPD but they are not helping enough. In the ED patient's vitals were 90.7 fever, heart rate 86, respiratory rate 20, blood pressure 117/63, 96% satting on 1 L nasal cannula. ESR 29 CRP elevated 7.8, BNP, troponin negative, Pro-Neeraj 0.08, D-dimer 544. Sodium 141 potassium 3.4 BUN 13 creatinine 0.8 glucose 109. White count elevated 25.6, hemoglobin 15.4. Chest x-ray shows basilar bronchitis similar to previous x-ray on the fifth. COVID flu RSV negative. Patient received 125 mg Solu-Medrol, 0.5 mg lorazepam, albuterol, magnesium 2 g in ED. Allergies: albuterol, heart palpitations PMH: Stated above PSH: Hysterectomy 2014 Family history: Unknown pulm history Social: Quit smoking 2 days ago 1 pack/day for past 30 years, history of meth, marijuana, cocaine, alcohol use Meds: Diltiazem 90 mg twice daily, flecainide 100 mg twice daily, Ellipta inhaler Review of Systems Constitutional Constitutional: Denies chills and Denies fever(s) Cardiovascular Cardiovascular: Denies chest pain and Denies palpitations Respiratory Respiratory: Reports wheezing Gastrointestinal Gastrointestinal: Denies abdominal pain and Denies nausea Musculoskeletal Musculoskeletal: Denies muscle weakness Neurologic Neurologic: Denies convulsions Endocrine Endocrine: Denies palpitations Allergic/Immunologic Allergic/Immunologic: Reports wheezing Exam Vital Signs Temp Pulse Resp BP Pulse Ox O2 Del Method O2 Flow Rate 97.6 F 86 18 119/68 95 Nasal Cannula 1 08/11/24 15:54 08/11/24 15:54 08/11/24 15:54 08/11/24 15:54 08/11/24 15:54 08/11/24 15:54 08/11/24 15:54 Narrative Exam General: Well appearing, well nourished, in no distress. HEENT: Normocephalic, atraumatic, conjunctiva clear, sclera non-icteric, EOM intact, PERRL, Heart: Regular rate and rhythm, no murmur or gallop Lungs: Clear to auscultation, mild wheezing Abdomen: soft, non tender to palpation, non distended Extremities: No amputations or deformities, cyanosis, edema or varicosities, peripheral pulses intact, clubbing of b/l fingers Neurologic: Moves all EXTR spontaneously, no focal neurodeficits, alert and oriented x 4. Psychiatric: Cooperative, normal mood and affect. Results: Labs 08/12/24 04:43 08/12/24 04:43 Labs: Short CBC 08/11/24 Range/Units 07:00 WBC 25.6 H (3.6-11.0) Thou/mm3 Hgb 15.4 (12.0-16.0) g/dL Hct 46.2 H (36.0-46.0) % Plt Count 395 D (140-440) Thou/mm3 BMP 08/11/24 07:00 Sodium 141 Potassium 3.4 Chloride 103 Carbon Dioxide 30.0 BUN 13 Creatinine 0.8 Glucose 109 H Calcium 9.9 Cardiac Enzymes 08/11/24 Range/Units 07:00 Troponin I < 0.020 (0.0-0.045) ng/mL Liver Function 08/11/24 Range/Units 07:00 Total Bilirubin 0.6 (0.3-1.2) mg/dL AST 19 (0-34) U/L ALT 13 (10-49) U/L Alkaline Phosphatase 147 H (46-116) U/L Albumin 5.5 H (3.5-5.0) gm/dL ABG Interpretation ABG results: 08/11/24 09:46 ABG pH 7.41 ABG pCO2 44 ABG pO2 73 L ABG HCO3 28 H ABG O2 Saturation 96 ABG Base Excess 3 Quality Measures Quality Measures VTE prophylaxis Medications Home Medications and Allergies Home Medications ?Medication ?Instructions ?Recorded ?Confirmed ?Type diltiazem HCl 30 mg tablet 30 mg PO QID 08/17/22 08/17/22 History flecainide 50 mg tablet 50 mg PO BID 08/17/22 08/17/22 History Allergies Allergy/AdvReac Type Severity Reaction Status Date / Time ketorolac [From Toradol] Allergy Intermediate Rash Verified 08/09/24 07:27 Visit Medications Acetaminophen (Acetaminophen 325 Mg Tablet) 650 mg PO Q6H PRN PRN Reason: Fever >100.3 or pain Stop: 09/10/24 09:52 Diltiazem HCl (Diltiazem Er 90 Mg Er Capsule) 90 mg PO Q12HR [facility] Stop: 09/10/24 20:59 Enoxaparin Sodium (Enoxaparin Sod Inj 40 Mg/0.4 Ml Syringe) 40 mg SC QDAY [facility] Stop: 08/26/24 08:59 Flecainide Acetate (Flecainide Acet 50 Mg Tablet) 100 mg PO BID [facility] Stop: 09/10/24 20:59 Ipratropium [place] (Ipratropium Rt 0.5 Mg/ 2.5 Ml Nebu) 0.5 mg INH Q4HRRT [facility] Stop: 09/10/24 18:59 Levalbuterol HCl (Levalbuterol Rt 0.63 Mg/3 Ml Nebu) 0.63 mg INH Q4HRRT [facility]AKELIN Stop: 09/10/24 18:59 Ondansetron HCl (Ondansetron Inj 2 Mg/Ml Inj 2 Ml) 4 mg IV Q6H PRN; Protocol PRN Reason: NAUSEA OR VOMITING Stop: 09/10/24 09:52 Sennosides (Senna Tablet) 1 tab PO QDAY PRN; Protocol PRN Reason: constipation Stop: 09/10/24 14:57 Discontinued Medications Albuterol/Ipratropium (Albuterol/Ipratropium (Duoneb) Rt Lauren 3 Ml Nebu) 3 ml INH Q4HRRT PRN PRN Reason: shortness of breath Stop: 09/10/24 10:59 Albuterol/Ipratropium (Albuterol/Ipratropium (Duoneb) Rt Lauren 3 Ml Nebu) 3 ml INH Q6HRRT YAKELIN Stop: 09/10/24 14:59 Magnesium Sulfate (Magnesium Sulfate Ivpb) 2 gm in 50 mls @ 25 mls/hr IV X1 ONE Stop: 08/11/24 08:33 Last Infusion: 08/11/24 07:03 Dose: Infused Azithromycin 500 mg/ Sodium (Chloride) 250 mls @ 250 mls/hr IV X1 ONE Stop: 08/11/24 08:25 Last Admin: 08/11/24 08:41 Dose: 250 mls/hr Ceftriaxone Sodium/Dextrose (Rocephin/D5w 1gm Iv Premix) 50 mls @ 100 mls/hr IV X1 ONE Stop: 08/11/24 07:55 Last Infusion: 08/11/24 08:41 Dose: Infused Ipratropium [facility] (Ipratropium Rt 0.5 Mg/ 2.5 Ml Nebu) 0.5 mg INH Q4HRRT PRN PRN Reason: SHORTNESS OF BREATH OR WHEEZE Stop: 09/10/24 10:59 Last Admin: 08/11/24 15:13 Dose: 0.5 mg Levalbuterol HCl (Levalbuterol Rt 1.25 Mg/0.5 Ml Nebu) 2.5 mg INH X1 ONE Stop: 08/11/24 06:35 Last Admin: 08/11/24 06:54 Dose: 2.5 mg Levalbuterol HCl (Levalbuterol Rt 0.63 Mg/3 Ml Nebu) 0.63 mg INH Q4HRRT PRN PRN Reason: SHORTNESS OF BREATH OR WHEEZE Stop: 09/10/24 10:59 Last Admin: 08/11/24 15:13 Dose: 0.63 mg Lorazepam (Lorazepam 2 Mg/Ml Vial) 0.5 mg IVP X1 ONE Stop: 08/11/24 06:35 Last Admin: 08/11/24 06:58 Dose: 0.5 mg Methylprednisolone Sodium Succinate (Methylprednisolone Sod Succ 62.5 Mg/Ml 2ml Vial) 125 mg IVP X1 ONE Stop: 08/11/24 06:35 Last Admin: 08/11/24 06:57 Dose: 125 mg Polyethylene Glycol (Polyethylene Glycol 17 Gm Packet) 17 gm PO X1 ONE Stop: 08/11/24 14:59 Last Admin: 08/11/24 15:10 Dose: 17 gm Assessment & Plan Plan Corinna is a 58-year-old female past medical history of COPD, SVT, hypertension, OA, hard of hearing, ovarian cancer who presents with a week of shortness of breath and nasal congestion. She was last seen in the ED on the fifth for similar presentation. Patient is admitted for further treatment of COPD exacerbation. #Acute hypoxic respiratory failure secondary to #Acute on chronic COPD exacerbation #Reactive bronchitis #Leukocytosis History of COPD not improving with breathing treatments. Patient pending home oxygen COVID/RSV/Flu(-) CXR: Basilar Bronchitis Plan: Ceftriaxone 1 g IV daily Azithromycin 500 mg IV daily Solumedrol 125mg IV daily Levalbuterol breathing treatments every 4 hours as needed Pending blood cultures technical services rep referral #History of SVT Heart rate within normal limits and denies chest pain or heart palpitations Dr. Green (director of user experience) Plan: On flecainide 100 mg twice daily and diltiazem 90 mg twice daily Med/tele #History of hypertension 119/68 currently Plan: Restart home med diltiazem 90 mg twice daily #History of ovarian cancer History of ovarian cancer status post total hysterectomy 2014 Plan: No current gynecological needs. Manage outpatient #History of deafness 100% deaf on right ear, 95% on left Plan: Provide hearing impaired resources Health Maintenance: Disp: Med/tele FEN: Diet GI: Not indicated DVT: Lovenox 40 mg subQ Lines: PIV Code: Full The patient's plan was discussed with attending Dr. Costa and senior residents Dr. Luann Britt, PGY1 Internal Medicine Senior resident attestation: Patient evaluated and examined at the bedside, plan of care discussed with rest of the team including my attending physician, except as noted. i agree with the assesment and plan as noted above. #COPD excerbation - steroids , antibiotic, nebulizations, will require home O2 on discharge. Luann PGY2
--- NOTE | 2024-08-11 16:34 | PC.SS ---
OXYGEN Pt is discharged in a chronic stable state and has been treated optimally and has other respiratory needs. Oxygen has been ordered due to COPD Exacebation.
--- NOTE | 2024-08-11 16:41 | PC.SS ---
SS has sent DME order for home O2 and walker on [facility].
[2024-08-11 19:37] LABS: Collection Type, Urine Clean Catch; RBC,Urine 0 /hpf (0-3); WBC,Urine 0 /hpf (0-5)
[2024-08-11 19:52] LABS: Bilirubin,Urine Negative (Negative); Blood,Urine Negative (Negative); Clarity,Urine Clear (Clear/Hazy); Color,Urine Yellow (Lt Yel-Yel); Glucose, Urine Trace (Negative); Ketones,Urine Negative (Negative); Leukocyte Esterase,Urine Negative (Negative); Nitrite,Urine Negative (Negative); PH,Urine 6.5 (5.0-7.0); Protein,Urine 1+ (Neg - Trace); Specific Gravity,Urine 1.029 (1.001-1.035); Squamous Epithelial Cell,Urine 3 /hpf (0-5)
[2024-08-11] MEDS: FLECAINIDE ACET 50 MG TABLET 100 MG PO (20:06)
[2024-08-11] MEDS: DILTIAZEM ER 90 MG ER CAPSULE PO (20:06)
[2024-08-12] VITALS (13 sets, daily range): BP systolic 98–127; BP diastolic 54–69; PULSE 60–91; RESP 17–20; TEMP 36.1–36.9; O2SAT 92–100
[2024-08-12] MEDS: IPRATROPIUM RT 0.5 MG/ 2.5 ML NEBU INH ×5 (03:23→19:02)
[2024-08-12] MEDS: LEVALBUTEROL RT 0.63 MG/3 ML NEBU INH ×2 (03:23→06:25)
[2024-08-12 05:31] LABS: Basophils % (Auto) 0 % (0-2.5); Eosinophils % (Auto) 0 % (0-10); Hematocrit 36.8 % (36.0-46.0); Hemoglobin 12.3 g/dL (12.0-16.0); Immature Granulocytes % (Auto) 1 % (0-0); Immature Granulocytes Auto 0.08 Thou/mm3 (0.00-0.00); Lymphocytes # (Auto) 0.7 Thou/mm3 (1.0-4.8); Lymphocytes % (Auto) 5 % (10-50); Mean Corpuscular HGB Conc 33.4 g/dl (31.0-37.0); Mean Corpuscular Hemoglobin 29.7 pg (25.0-35.0); Mean Corpuscular Volume 89 fL (80-100); Monocytes # (Auto) 0.5 Thou/mm3 (0.0-0.8); Monocytes % (Auto) 3 % (0-12); Neutrophils # (Auto) 13.2 Thou/mm3 (1.8-7.7); Neutrophils % (Auto) 91 % (37-80); Nucleated Red Blood Cell % 0 /100 WBC (0); Platelet Count 260 Thou/mm3 (140-440); RDW Standard Deviation 48.7 fL (36.4-46.3); Red Blood Count 4.14 Miln/mm3 (4.00-5.20); White Blood Count 14.5 Thou/mm3 (3.6-11.0)
[2024-08-12 06:30] LABS: Alanine Aminotransferase 16 U/L (10-49); Albumin, Serum 4.1 gm/dL (3.5-5.0); Albumin/Globulin Ratio 1.9 (1.2-2.2); Alkaline Phosphatase 113 U/L (46-116); Anion Gap 7 (7-16); Aspartate Amino Transferase 10 U/L (0-34); BUN/Creatinine Ratio 17 Ratio (12-20); Bilirubin,Total 0.3 mg/dL (0.3-1.2); Blood Urea Nitrogen 12 mg/dL (9-23); Calcium 9.1 mg/dL (8.3-10.6); Calcium (Corrected) 9.1 mg/dL (8.5-10.1); Carbon Dioxide 28.6 mMol/L (20.0-31.0); Chloride 104 mMol/L (98-107); Creatinine (Component) 0.7 mg/dL (0.6-1.3); Estimated Creatinine Clearance 80.6 mL/min (>60); Globulin 2.2 gm/dL (2.3-3.5); Glucose 129 mg/dL (74-106); Magnesium 2.2 mg/dL (1.6-2.6); Osmolality,Calculated 281 (275-295); Sodium 140 mMol/L (136-145); Thyroid Stimulating Hormone 0.44 uIU/mL (0.55-4.78); Total Protein 6.3 gm/dL (5.7-8.2); eGFR > 60 See Note
[2024-08-12] MEDS: FLECAINIDE ACET 50 MG TABLET 100 MG PO (08:10)
[2024-08-12] MEDS: DILTIAZEM ER 90 MG ER CAPSULE PO (08:11)
[2024-08-12] MEDS: ENOXAPARIN SOD INJ 40 MG/0.4 ML SYRINGE SC (08:13)
[2024-08-12] MEDS: cefTRIAXone/D5w 1gm IV premix 50 ML IV (08:14)
[2024-08-12 09:40] LABS: Free T4 (Free Thyroxine) 1.15 ng/dL (0.89-1.76)
--- NOTE | 2024-08-12 09:59 | PC.SS ---
Addendum entered by Kiersten Hooper 08/12/24 11:47: SS met with pt and Tierra richardson phone#[phone] regarding pt's d/c options for home with O2 or SNF. SS spoke to Akin from [facility] who is requesting to reach out to family to deliver home O2 concentrator to patient's home. Stacy spoke to Tierra richardson to arrange delivery for home O2 between 2-4pm. Dtr states she will be at patient's home to receive home O2. Pt is aware her health insurance requires insurance authorization for short term at SNF not superintendent terminal. Pt is agreeable to return home. SS has faxed [facility] authorization form. SS has sent [facility] referral and pt is aware. DtrTierra states she will be staying with pt at home to help care for her. Addendum entered by Kiersten Hooper 08/12/24 10:15: SS has scheduled pt an appointment with Dr. Sofía Aquino at [facility] for August 20, 2024 at 1:15pm. Original Note: SS met with pt to provide her choices for DME for home O2. [facility] and [facility] have accepted on [facility]. Patient's choice is [facility]. SS provided verbal choices for d/c to home or SNF. At first pt was requesting to go to SNF but now she is requesting to return home with DME (walker and home O2). [facility] is starting insurance authorization for home O2. Insurance authorization is pending for home O2.
[2024-08-12] MEDS: AZITHROMYCIN INJ 500 MG in SODIUM CHLORIDE 0.9% 250 ML 250 ML 250 MG IV (10:26)
[2024-08-12] MEDS: LEVALBUTEROL RT 1.25 MG/0.5 ML NEBU 1.5 MG INH ×3 (11:07→19:01)
--- NOTE | 2024-08-12 12:00 | PC.NURSE ---
per SS, pt to discharge once home oxygen is delivered to pt's home and pt daughter brings it to hospital.
--- NOTE | 2024-08-12 14:07 | ESDS_ITS ---
<Statement entered by Marilee Costa MD - 08/16/24 16:15> I reviewed above note and agree with findings and plans. I have also personally examined the patient with medicine team and went over assessment and plan with medical team including social media intern and resident physician. <Statement entered by Rachele Cunningham MD - 08/13/24 14:03> Patient was seen and examined at bedside. Patient reported significant improvement of her symptoms. Blood culture for the last 24 hours were within normal limits. At this time she is on 1 L of O2 oxygen 97% saturation. Will discharge the patient today with oxygen and inhaler. Counseling regarding oxygen use and her condition was done. Patient was recommended to follow-up with her primary care physician within 1 week from discharge. - Patient's plan and care discussed with my attending, Dr. Igor Cunningham MD Internal Medicine PGY-2 Planned Discharge Date 08/12/24 DS: Providers Provider Date of admission: 08/11/24 09:54 Primary care physician: Sofía Aquino PA-C Admitting Provider: Marilee Costa MD Attending Provider on Admission: Marilee Costa MD Consults: 08/11/24 13:04 [facility] Referral - Knowledge Deficit Routine Comment: Positive screening for knowledge deficit needs. [facility] Referral - Transportation Routine Comment: Positive screening for transportation needs. Attending Provider on DC: Marliee Costa MD Discharging Provider: Marilee Costa MD DS: Diagnosis Problem List Completed Was Problem List Reviewed/Reconciled?: Yes Hospital Course Hospital Course Hospital course: Corinna is a 58-year-old female past medical history of COPD, SVT, hypertension, OA, hard of hearing, ovarian cancer who presents with a week of shortness of breath and nasal congestion. She was last seen in the ED on the fifth for similar presentation. Patient denies chest pain and states that she feels short of breath when walking and performing activities. At home she is not on oxygen however she is in the process of obtaining home oxygen. She states that she has inhalers at home for her COPD but they are not helping enough.In the ED p elias's vitals were 98.7 fever, heart rate 86, respiratory rate 20, blood pressure 117/63, 96% satting on 1 L nasal cannula. However, when she first arrived she met SIRS criteria with RR of 24 and elevated WBC however, there is no source given CXR shows reactive bronchitis and UA negative with no skin infections. ESR 29 CRP elevated 7.8, BNP, troponin negative, Pro-Neeraj 0.08, D- dimer 544. Sodium 141 potassium 3.4 BUN 13 creatinine 0.8 glucose 109. White count elevated 25.6, hemoglobin 15.4. Chest x-ray shows basilar bronchitis similar to previous x-ray on the fifth. COVID flu RSV negative. Patient received 125 mg Solu-Medrol, 0.5 mg lorazepam, albuterol, magnesium 2 g in ED. while admitted patient continued to improve. She received breathing treatments, antibiotics, steroids. Patient was able to receive home oxygen which was coordinated by social work professor here. Patient's white count improved dramatically from 25-14. And her vital signs were stable. TSH was mildly low however free T4 was within normal limits. patient will be discharged with Augmentin and azithromycin and told to continue her prednisone taper. Patient was also instructed to continue her inhaler treatment at home. Patient initially met SIRS criteria however this is likely false positive for sepsis as there is no source. We yolanda blood cultures and at this point there is no growth at 24 hours. We will continue to monitor blood cultures and if his growth we will call the patient for further evaluation. daughter was at bedside to help coordinate care and provide support. patient agreed with this plan for discharge home. #Acute hypoxic respiratory failure secondary to #Acute on chronic COPD exacerbation #Reactive bronchitis #Leukocytosis #History of SVT #History of hypertension #History of ovarian cancer #History of deafness We appreciate the opportunity involved with your care. We wish you the very best. The patient's plan was discussed with attending Dr. Costa and senior resident Octavio Britt DO PGY1 Internal Medicine Time Spent with Patient Time attestation: Total time spent providing and/or coordinating discharge services: Time spent: Greater than 30 minutes Exam Vital Signs Temp Pulse Resp BP Pulse Ox O2 Del Method O2 Flow Rate 98.4 F 91 18 112/63 97 Nasal Cannula 1 08/12/24 12:00 08/12/24 12:00 08/12/24 12:00 08/12/24 12:00 08/12/24 12:00 08/12/24 12:00 08/12/24 12:00 Narrative Exam General: Well appearing, well nourished, in no distress. HEENT: Normocephalic, atraumatic, conjunctiva clear, sclera non-icteric, EOM intact, PERRL, Heart: Regular rate and rhythm, no murmur or gallop Lungs: Clear to auscultation, no wheezing Abdomen: soft, non tender to palpation, non distended Extremities: No amputations or deformities, cyanosis, edema or varicosities, peripheral pulses intact, clubbing of b/l fingers Neurologic: Moves all EXTR spontaneously, no focal neurodeficits, alert and oriented x 4. Psychiatric: Cooperative, normal mood and affect. Discharge Plan Plan Patient Disposition: HOME (Self Care) Patient condition on transfer: Stable and Benefits outweigh risks Care Plan Goals: scheduled pt an appointment with Dr. Sofía Aquino at [facility] for August 20, 2024 at 1:15pm. Follow with your PCP within one week from dischrge Use medications as prescribed Avoid smoking or being surrounded by community who are actively smoking next to you In case of worsening of your symptoms please return to the ED as soon as possible Prescriptions/Referrals Prescriptions/Med Rec: New ipratropium-albuterol 0.5 mg-3 mg(2.5 mg base)/3 mL Solution For Nebulization 3 ml INH Q6HRRT 14 Days Qty: 90 0RF amoxicillin-pot clavulanate 875-125 mg tablet 1 tab PO BID 6 Days Qty: 12 0RF Continued levalbuterol tartrate [Xopenex HFA] 45 mcg/actuation HFA aerosol inhaler 2 inh inhalation Q4H PRN (Reason: shortness of breath or wheezing) Qty: 15 0RF acetaminophen 500 mg capsule 1,000 mg PO Q8HR PRN (Reason: pain) Qty: 30 0RF cyclobenzaprine 5 mg tablet 5 mg PO TID PRN (Reason: muscle spasm) Qty: 30 0RF flecainide 50 mg tablet 50 mg PO BID prednisone 20 mg tablet See Taper PO QDAY Qty: 7 0RF Taper: Prednisone Taper 60 mg DAILY for 1 Day and 0 Hour 40 mg DAILY for 2 Days and 0 Hour 20 mg DAILY for 2 Days and 0 Hour Rx Instructions: 60mg once daily for 1 day 40mg once daily for 2 days 20mg once daily for 2 days diltiazem HCl 120 mg capsule,extended release 12 hr 120 mg PO BID Qty: 30 0RF metoprolol tartrate 50 mg tablet 50 mg PO BID Qty: 60 0RF fluticasone propionate [Flonase Allergy Relief] 50 mcg/actuation spray,suspension 2 spray intranasal QDAY PRN (Reason: allergy symptoms) Qty: 16 0RF Rx Instructions: administer into each nostril azithromycin 250 mg tablet See Rx Instructions .ROUTE .COMPLEX 4 Days Qty: 6 0RF Rx Instructions: For 250 mg dose pack: take 500 mg today (day 1), then 250 mg for 4 days (days 2-5) Discontinued diltiazem HCl 90 mg tablet 90 mg PO BID Qty: 60 0RF ibuprofen 600 mg tablet 600 mg PO Q6H Qty: 30 0RF albuterol sulfate 90 mcg/actuation aerosol powdr breath activated 2 inh inhalation Q6H PRN (Reason: shortness of breath or wheezing) Qty: 1 0RF levalbuterol HCl 1.25 mg/3 mL solution for nebulization 1.25 mg inhalation Q4H Qty: 90 0RF doxycycline monohydrate 100 mg capsule 100 mg PO BID Qty: 10 0RF diltiazem HCl 30 mg tablet 30 mg PO QID diltiazem HCl 90 mg capsule,extended release 12 hr 90 mg PO BID Qty: 30 0RF diltiazem HCl 90 mg capsule,extended release 12 hr 90 mg PO BID Qty: 30 0RF albuterol sulfate 90 mcg/actuation HFA aerosol inhaler 2 inh inhalation Q4H PRN (Reason: shortness of breath or wheezing) Qty: 8.5 0RF diltiazem HCl 90 mg capsule,extended release 12 hr 90 mg PO BID Qty: 30 1RF doxycycline hyclate 100 mg capsule 100 mg PO BID Qty: 14 0RF albuterol sulfate [Ventolin HFA] 90 mcg/actuation HFA aerosol inhaler 2 puff inhalation Q6H PRN (Reason: shortness of breath or wheezing) Qty: 8.5 0RF ibuprofen 600 mg tablet 600 mg PO Q8H PRN (Reason: fever or pain) Qty: 30 0RF albuterol sulfate [Ventolin HFA] 90 mcg/actuation HFA aerosol inhaler 2 puff inhalation Q6H PRN (Reason: shortness of breath or wheezing) Qty: 8.5 0RF albuterol sulfate [Ventolin HFA] 90 mcg/actuation HFA aerosol inhaler 2 puff inhalation Q6H PRN (Reason: shortness of breath or wheezing) Qty: 8.5 0RF levalbuterol tartrate [Xopenex HFA] 45 mcg/actuation HFA aerosol inhaler 2 inh inhalation Q6H Qty: 15 0RF albuterol sulfate 1.25 mg/3 mL solution for nebulization 1.25 mg inhalation QID PRN (Reason: bronchospasm) Qty: 75 0RF Referrals: Sofía Aquino PA-C [Primary Care Provider] - Patient/Caregiver Discharge Instructions Discharge Activity: activity as tolerated Other Discharge Activity Instructions:: scheduled pt an appointment with Dr. Sofía Aquino at [facility] for August 20, 2024 at 1:15pm. Follow with your PCP within one week from dischrge Use medications as prescribed Avoid smoking or being surrounded by community who are actively smoking next to you In case of worsening of your symptoms please return to the ED as soon as possible Education Materials: Chronic Lung Disease Preventing ..., Chronic Lung Disease Avoiding ..., Chronic Lung Disease Nutrition, Chronic Lung Disease Be Active Print Language: Armenian Stand Alone Forms: Serena Award Info., Patient Portal Info Letter Discharge Order Discharge Orders: Discharge (Routine); Ordered 08/12/24 Ordered By: Suman Cormier Quality Discharge Quality Measures VTE prophylaxis
--- NOTE | 2024-08-12 16:16 | PC.SS ---
kristin Petty phone# [phone] will provide transportation once she has received O2 at home.
== END 2024-08-12 19:50 | disposition home or self-care (01) ==
LOC: SERX 10:19 → S3NX 08-12 06:09 → SERHOLD 08-12 11:11 → S3NX 08-12 11:13
PROVIDERS: Admitting Provider Internal Medicine; Emergency Provider Emergency Medicine; PCP Physician Assistant; Visit Provider Internal Medicine
DX: J44.1 Chronic obstructive pulmonary disease with (acute) exacerbation (principal); D72.829 Elevated white blood cell count, unspecified; H91.90 Unspecified hearing loss, unspecified ear; I10 Essential (primary) hypertension; I48.91 Unspecified atrial fibrillation; J96.01 Acute respiratory failure with hypoxia; M19.90 Unspecified osteoarthritis, unspecified site; Z90.710 Acquired absence of both cervix and uterus; J40 Bronchitis, not specified as acute or chronic; Z85.43 Personal history of malignant neoplasm of ovary
CPT/HCPCS: 36415; 36600; 71045; 80053; 81001; 82803; 83605; 83735; 83880; 84145; 84439; 84443; 84484; 85025; 85379; 85652; 86140; 87040; 87400; 87634; 87811; 93005; 94640; 94664; 96365; 96372; 96375; 99285; G0378; J0456; J0696; J1650; J2060; J2919; J3475; J7050; A9270

== ENCOUNTER 2024-08-25 15:33 | Emergency (ER) | payer MEDICARE, MEDICAID, SELFPAY ==
--- NOTE | 2024-08-25 15:48 | PD.EDRME ---
Rapid Medical Screening Exam RME Arrival date/time: 08/25/24 15:33 59-year-old female presents emergency department complaint of bilateral leg pain Chief Complaint: Back Pain/Injury Time Seen by Provider: 08/25/24 15:36
[2024-08-25 15:49] VITALS: BP 120/74; PULSE 86; RESP 20; TEMP 36.9; O2SAT 97
[2024-08-25 16:06] LABS: Basophils % (Auto) 0 % (0-2.5); Eosinophils # (Auto) 0.1 Thou/mm3 (0.0-0.5); Eosinophils % (Auto) 1 % (0-10); Hematocrit 38.2 % (36.0-46.0); Hemoglobin 12.6 g/dL (12.0-16.0); Immature Granulocytes % (Auto) 0 % (0-0); Immature Granulocytes Auto 0.03 Thou/mm3 (0.00-0.00); Lymphocytes # (Auto) 1.2 Thou/mm3 (1.0-4.8); Lymphocytes % (Auto) 14 % (10-50); Mean Corpuscular Hemoglobin 29.7 pg (25.0-35.0); Mean Corpuscular Volume 90 fL (80-100); Monocytes # (Auto) 0.6 Thou/mm3 (0.0-0.8); Monocytes % (Auto) 7 % (0-12); Neutrophils # (Auto) 6.6 Thou/mm3 (1.8-7.7); Neutrophils % (Auto) 78 % (37-80); Nucleated Red Blood Cell % 0 /100 WBC (0); Platelet Count 238 Thou/mm3 (140-440); RDW Standard Deviation 46.3 fL (36.4-46.3); Red Blood Count 4.24 Miln/mm3 (4.00-5.20); White Blood Count 8.5 Thou/mm3 (3.6-11.0)
[2024-08-25 16:30] LABS: Anion Gap 8 (7-16); BUN/Creatinine Ratio 15 Ratio (12-20); Blood Urea Nitrogen 12 mg/dL (9-23); Carbon Dioxide 32.5 mMol/L (20.0-31.0); Chloride 101 mMol/L (98-107); Creatinine (Component) 0.8 mg/dL (0.6-1.3); Potassium 3.6 mMol/L (3.4-5.1); Sodium 141 mMol/L (136-145)
[2024-08-25 16:31] LABS: Alanine Aminotransferase 31 U/L (10-49); Albumin, Serum 4.7 gm/dL (3.5-5.0); Albumin/Globulin Ratio 1.7 (1.2-2.2); Alkaline Phosphatase 103 U/L (46-116); Aspartate Amino Transferase 25 U/L (0-34); Bilirubin,Total 0.3 mg/dL (0.3-1.2); Calcium 9.5 mg/dL (8.3-10.6); Calcium (Corrected) 9.5 mg/dL (8.5-10.1); Creatine Kinase 38 U/L (34-171); Globulin 2.7 gm/dL (2.3-3.5); Glucose 77 mg/dL (74-106); Magnesium 1.7 mg/dL (1.6-2.6); Osmolality,Calculated 279 (275-295); Total Protein 7.4 gm/dL (5.7-8.2); eGFR > 60 See Note
--- NOTE | 2024-08-25 16:36 | EDNOTE_ITS ---
<Statement entered by Cha Rucker MD - 09/01/24 17:54> As co-signing physician, I was present and available for consult prn. I concur with the plan and care as documented by the midlevel provider. ED Back Injury Pain RME/HPI General Chief Complaint: Back Pain/Injury Stated Complaint: LOWER BACK AND BILATERAL LEG PAIN Time Seen by Provider: 08/25/24 15:36 Arrival date/time: 08/25/24 15:33 59-year-old female with COPD on oxygen presents to the emergency department complains of bilateral leg pain/muscle pain. Patient reports no saddle anesthesia no loss of bowel or bladder patient reports no fever nausea or vomiting patient reports no headache dizziness weakness Limitations: no limitations RME / HPI RME / HPI Narrative: 08/25/24 15:33 59-year-old female presents emergency department complaint of bilateral leg pain Related Data Home Medications ?Medication ?Instructions ?Recorded ?Confirmed flecainide 50 mg tablet 50 mg PO BID 08/17/22 08/17/22 Previous Rx's ?Medication ?Instructions ?Recorded prednisone 20 mg tablet See Taper PO QDAY #7 tabs 02/24/24 diltiazem HCl 120 mg 120 mg PO BID #30 caps 05/16/24 capsule,extended release 12 hr levalbuterol tartrate 45 2 inh inhalation Q4H PRN shortness 06/14/24 mcg/actuation aerosol inhaler of breath or wheezing #15 grams (Xopenex HFA) metoprolol tartrate 50 mg tablet 50 mg PO BID #60 tabs 06/18/24 acetaminophen 500 mg capsule 1,000 mg (2 x 500 mg) PO Q8HR PRN 07/14/24 pain #30 caps cyclobenzaprine 5 mg tablet 5 mg PO TID PRN muscle spasm #30 07/14/24 tabs fluticasone propionate 50 2 spray intranasal QDAY PRN 08/05/24 mcg/actuation nasal allergy symptoms #16 mL spray,suspension (Flonase Allergy Relief) azithromycin 250 mg tablet See Rx Instructions PO .COMPLEX 4 08/12/24 days #6 tabs cyclobenzaprine 5 mg tablet 5 mg PO TID PRN muscle spasm #30 08/25/24 tabs Allergies Allergy/AdvReac Type Severity Reaction Status Date / Time ketorolac [From Toradol] Allergy Intermediate Rash Verified 08/09/24 07:27 Review of Systems Review of Systems Systems Reviewed: All systems reviewed, normal except as documented Constitutional Constitutional: Reports system reviewed and no additional complaints, except as documented, Denies fever(s) and Denies headache(s) Eyes Eyes: Reports system reviewed and no additional complaints, except as documented and Denies blurry vision ENT Ears, Nose, Mouth, and Throat: Reports system reviewed and no additional complaints, except as documented, Denies headache(s), Denies nasal congestion and Denies nasal discharge Cardiovascular Cardiovascular: Reports system reviewed and no additional complaints, except as documented, Denies chest pain and Denies dyspnea Respiratory Respiratory: Reports system reviewed and no additional complaints, except as documented, Denies chest congestion, Denies cough and Denies dyspnea Gastrointestinal Gastrointestinal: Reports system reviewed and no additional complaints, except as documented and Denies abdominal pain Musculoskeletal Musculoskeletal: Reports system reviewed and no additional complaints, except as documented, Reports arthralgias, Denies deformity, Denies joint swelling, Denies numbness, Reports stiffness and Denies tingling Integumentary/Breasts Skin/Breast: Reports system reviewed and no additional complaints, except as documented and Denies rash Neurologic Neurologic: Reports system reviewed and no additional complaints, except as documented, Reports as per HPI, Denies headache(s), Denies numbness and Denies tingling Past Medical History Past Medical History NEUROLOGIC: Negative Neurological Disorders CARDIAC: Positive Cardiac Disorders, Cardiac Arrhythmia (svt), Atrial F ibrillation and Hypertension; Negative Congestive Heart Failure RESPIRATORY: Positive Chronic Obstructive Pulmonary Disease (COPD) and Asthma GASTROINTESTINAL: Negative Gastrointestinal Disorders GENITOURINARY: Negative Genitourinary Disorders or Renal Disease MUSCULOSKELETAL: Positive Arthritis; Negative Musculoskeletal Disorders ENT: Positive Deafness ENDOCRINE: Negative Diabetes Mellitus Type 1 or Diabetes Mellitus Type 2 HEMATOLOGIC: Negative Blood Disorders or Sickle Cell Disease OTHER HISTORY: Positive Cancer and Ovarian Cancer; Negative Blood Transfusions, Blood Transfusion Reaction or Anesthesia Reactions Surgical History SURGICAL: Positive Hysterectomy Social History SMOKING STATUS: Never smoker SECOND HAND EXPOSURE: Yes SUBSTANCE USE: does not use ED Exam General Limitations: Present no limitations General appearance: Present alert and in no apparent distress Head Head exam: Present atraumatic, normocephalic and normal inspection Eye Eye exam: Present normal appearance, PERRL and EOMI; Absent conjunctival injection ENT ENT exam: Present normal exam, normal oropharynx and mucous membranes moist Neck Neck exam: Present normal inspection, full ROM and trachea midline Chest Chest inspection: Present normal inspection and symmetric chest wall rise Respiratory Respiratory exam: Present normal lung sounds bilaterally Cardiovascular Cardiovascular exam: Present regular rate, normal rhythm and normal heart sounds Abdominal Exam Abdominal exam: Present soft and normal bowel sounds; Absent distention, tenderness, guarding, rebound or rigidity Extremities Exam Extremities exam: Present normal inspection, full ROM, tenderness and normal capillary refill; Absent joint swelling Back Exam Back exam: Present normal inspection and full ROM Neurological Exam Neurological exam: Present alert, oriented X3 and CN II-XII intact Psychiatric Psychiatric exam: Present normal affect and normal mood Skin Skin exam: Present warm, dry, intact and normal color Course Quality Measures none Orders Category Date Time Status CBC Stat Lab 08/25/24 15:54 Completed CMP [Comprehensive Metabolic Panel] Stat Lab 08/25/24 15:54 Completed Creatine Kinase Stat Lab 08/25/24 15:54 Completed Mag [Magnesium] Stat Lab 08/25/24 15:54 Completed Vital Signs Vital signs: Vital Signs Temperature 98.4 F 08/25/24 15:49 Pulse Rate 86 08/25/24 15:49 Respiratory Rate 20 08/25/24 15:49 Blood Pressure 120/74 08/25/24 15:49 Pulse Oximetry (%) 97 08/25/24 15:49 Oxygen Delivery Method Nasal Cannula 08/25/24 15:49 Oxygen Flow Rate 2 08/25/24 15:49 O2 saturation 97% on 2L NC Back Pain / Injury MDM Narrative MDM Narrative:: 59-year-old female with COPD on oxygen presents to the emergency department complains of bilateral leg pain/muscle pain patient reports no fever nausea or vomiting patient reports no headache dizziness weakness On exam patient well-appearing patient does not appear ill or toxic patient does not appear in any acute distress Lab work obtained no acute emergent findings noted Patient discharged home in no distress to follow-up with primary care doctor in the next 24 to 48 hours and for any worsening symptoms to return to the ER immediately Patient data External records reviewed:: [facility] previous records Clinical information provided by:: patient Social determinants that could affect healthcare access:: none Patient has the following chronic illnesses:: See history How is presenting disease/condition affected by chronic disease/condition?: u neffected by Evaluation data The following diagnostics were reviewed and interpreted by me:: lab results Lab and/or radiology exams considered but not ordered:: Labs obtained Interpretation Summary: Reviewed by me Medications / Prescriptions Medications or Prescriptions considered but not ordered:: Given Medication administrations:: Given Consultations Consultation(s) initiated? (list below): No Diagnosis Most likely diagnosis given after review of the tests above:: Muscle spasm Admission Indicated Admission indicated?: not indicated Admission Request Was there a request for admission?: No Disposition Plan Disposition Plan: Discharge Discharge Attestation Discharge Attestation: The patient and all family members were given an opportunity to ask questions and understood the discharge instructions. Discharge instructions specifically effects, indications for sooner follow up or return to the emergency department, and the expected course of current diagnosis. Patient condition: Stable Discharge Plan Plan Patient Disposition: HOME (Self Care) Disposition Comment: Stable Prescriptions/Referrals Prescriptions/Med Rec: New cyclobenzaprine 5 mg tablet 5 mg PO TID PRN (Reason: muscle spasm) Qty: 30 0RF No Action levalbuterol tartrate [Xopenex HFA] 45 mcg/actuation HFA aerosol inhaler 2 inh inhalation Q4H PRN (Reason: shortness of breath or wheezing) Qty: 15 0RF acetaminophen 500 mg capsule 1,000 mg PO Q8HR PRN (Reason: pain) Qty: 30 0RF cyclobenzaprine 5 mg tablet 5 mg PO TID PRN (Reason: muscle spasm) Qty: 30 0RF flecainide 50 mg tablet 50 mg PO BID prednisone 20 mg tablet See Taper PO QDAY Qty: 7 0RF Taper: Prednisone Taper 60 mg DAILY for 1 Day and 0 Hour 40 mg DAILY for 2 Days and 0 Hour 20 mg DAILY for 2 Days and 0 Hour Rx Instructions: 60mg once daily for 1 day 40mg once daily for 2 days 20mg once daily for 2 days diltiazem HCl 120 mg capsule,extended release 12 hr 120 mg PO BID Qty: 30 0RF metoprolol tartrate 50 mg tablet 50 mg PO BID Qty: 60 0RF fluticasone propionate [Flonase Allergy Relief] 50 mcg/actuation spray,suspension 2 spray intranasal QDAY PRN (Reason: allergy symptoms) Qty: 16 0RF Rx Instructions: administer into each nostril azithromycin 250 mg tablet See Rx Instructions .ROUTE .COMPLEX 4 Days Qty: 6 0RF Rx Instructions: For 250 mg dose pack: take 500 mg today (day 1), then 250 mg for 4 days (days 2-5) Referrals: Michael Farfan MD [Primary Care Provider] - In 1 week Problem List Clinical Impression: Bilateral leg pain Patient/Caregiver Discharge Instructions Education Materials: ED RICE Additional Instructions: Please follow up with your primary care doctor in the next 24-48hrs for any worsening symptoms return here immediately Print Language: Portuguese Stand Alone Forms: Serena Award Info., Patient Portal Info Letter PA/CUSTOMER SOLUTIONS ARCHITECT Supervising Physician PA/CUSTOMER SOLUTIONS ARCHITECT Supervising Physician: Dr. Rucker
== END 2024-08-25 16:53 | disposition home or self-care (01) ==
PROVIDERS: Nurse Practitioner Primary Care; Emergency Provider Emergency Medicine; PCP Family Medicine
DX: M79.604 Pain in right leg (principal); M79.605 Pain in left leg
CPT/HCPCS: 36415; 80053; 82550; 83735; 85025; 99283

== ENCOUNTER 2024-09-05 14:36 | Emergency (ER) | payer MEDICARE, SELFPAY ==
[2024-09-05 14:38] VITALS: BMI 28.3
[2024-09-05 15:07] VITALS: BP 137/71; PULSE 100; RESP 20; TEMP 36.7; O2SAT 95
--- NOTE | 2024-09-05 17:03 | PD.EDHIP ---
Lower Extremity Injury RME/HPI General Chief Complaint: Hip Injury/Pain Stated Complaint: Right hip pain x 3 weeks Time Seen by Provider: 09/05/24 15:31 Arrival date/time: 09/05/24 14:36 RME / HPI RME / HPI Narrative: 59-year-old patient presents emergency department with complaint of right hip pain radiating down her left for the past 3 weeks. Patient states that pain has worsened over the past 3 weeks she has tried [id number] muscle rubs without relief she complains of burning sensation to her right lower leg. She denies trauma she denies bowel or bladder dysfunction. She rates her pain currently as a 10 out of 10. She denies any alleviating or aggravating factors. Related Data Home Medications ?Medication ?Instructions ?Recorded ?Confirmed flecainide 50 mg tablet 50 mg PO BID 08/17/22 08/17/22 Previous Rx's ?Medication ?Instructions ?Recorded prednisone 20 mg tablet See Taper PO QDAY #7 tabs 02/24/24 diltiazem HCl 120 mg 120 mg PO BID #30 caps 05/16/24 capsule,extended release 12 hr levalbuterol tartrate 45 2 inh inhalation Q4H PRN shortness 06/14/24 mcg/actuation aerosol inhaler of breath or wheezing #15 grams (Xopenex HFA) metoprolol tartrate 50 mg tablet 50 mg PO BID #60 tabs 06/18/24 acetaminophen 500 mg capsule 1,000 mg (2 x 500 mg) PO Q8HR PRN 07/14/24 pain #30 caps cyclobenzaprine 5 mg tablet 5 mg PO TID PRN muscle spasm #30 07/14/24 tabs fluticasone propionate 50 2 spray intranasal QDAY PRN 08/05/24 mcg/actuation nasal allergy symptoms #16 mL spray,suspension (Flonase Allergy Relief) azithromycin 250 mg tablet See Rx Instructions PO .COMPLEX 4 08/12/24 days #6 tabs cyclobenzaprine 5 mg tablet 5 mg PO TID PRN muscle spasm #30 08/25/24 tabs gabapentin 300 mg capsule 300 mg PO TID #30 caps 09/05/24 hydrocodone 5 mg-acetaminophen 325 1 tab PO Q8H PRN pain #14 tabs 09/05/24 mg tablet Allergies Allergy/AdvReac Type Severity Reaction Status Date / Time ketorolac [From Toradol] Allergy Intermediate Rash Verified 08/09/24 07:27 Review of Systems Review of Systems Systems Reviewed: All systems reviewed, normal except as documented Constitutional Constitutional: Reports system reviewed and no additional complaints, except as documented Cardiovascular Cardiovascular: Reports system reviewed and no additional complaints, except as documented Musculoskeletal Musculoskeletal: Reports system reviewed and no additional complaints, except as documented ED Exam General General appearance: Present alert and in no apparent distress Head Head exam: Present atraumatic and normocephalic Neck Neck exam: Present normal inspection and full ROM Chest Chest inspection: Present normal inspection and symmetric chest wall rise Respiratory Respiratory exam: Present normal lung sounds bilaterally Cardiovascular Cardiovascular exam: Present regular rate Expanded Lower Extremity Exam Lower leg exam: Present normal inspection and full ROM; Absent deformity or dislocation Back Exam Back exam: Present normal inspection and full ROM Course Quality Measures none Orders Category Date Time Status Gabapentin [Neurontin] Med 09/05/24 17:02 Once 300 mg PO X1 ONE HYDROmorphone INJ [Dilaudid Inj] Med 09/05/24 17:02 Discontinued 1 mg IM X1 ONE Ondansetron Odt [Zofran Odt] Med 09/05/24 17:02 Once 4 mg PO X1 ONE Vital Signs Vital signs: Vital Signs Temperature 98.1 F 09/05/24 15:07 Pulse Rate 100 09/05/24 15:07 Respiratory Rate 20 09/05/24 15:07 Blood Pressure 137/71 H 09/05/24 15:07 Pulse Oximetry (%) 95 09/05/24 15:07 Oxygen Delivery Method Nasal Cannula 09/05/24 15:07 Oxygen Flow Rate 1 09/05/24 15:07 Extremity Injury, Lower MDM Narrative MDM Narrative:: 59-year-old patient presents emergency department with complaint of right hip pain. Patient denies trauma. Patient reports pain and numbness and tingling to right leg. Patient denies bowel or bladder dysfunction. Signs and symptoms appears consistent with sciatica. Patient encouraged to see PCP for possible PT. Patient data External records reviewed:: None Clinical information provided by:: patient Social determinants that could affect healthcare access:: none Patient has the following chronic illnesses:: na How is presenting disease/condition affected by chronic disease/condition?: no chronic disease Evaluation data The following diagnostics were reviewed and interpreted by me:: other (specify) (na) Lab and/or radiology exams considered but not ordered:: na Interpretation Summary: na Medications / Prescriptions Medications or Prescriptions considered but not ordered:: meds considered and ordered Medication administrations:: Medication Administration History Discontinued Medications Hydromorphone HCl (Hydromorphone Inj 2 Mg/Ml Vial) 1 mg IM X1 ONE Stop: 09/05/24 17:03 per above Consultations Consultation(s) initiated? (list below): No Diagnosis Extremity Injury, Lower Differential Diagnosis: ankle sprain and strain, acute internal derangement of knee and fracture of femur Most likely diagnosis given after review of the tests above:: sciatica Admission Indicated Admission indicated?: not indicated Admission Request Was there a request for admission?: No Disposition Plan Disposition Plan: Discharge Discharge Attestation Discharge Attestation: The patient and all family members were given an opportunity to ask questions and understood the discharge instructions. Discharge instructions specifically effects, indications for sooner follow up or return to the emergency department, and the expected course of current diagnosis. Patient condition: Stable Discharge Plan Plan Patient Disposition: HOME (Self Care) Prescriptions/Referrals Prescriptions/Med Rec: New gabapentin 300 mg capsule 300 mg PO TID Qty: 30 0RF hydrocodone-acetaminophen 5-325 mg tablet 1 tab PO Q8H MDD 3 PRN (Reason: pain) Qty: 14 0RF No Action levalbuterol tartrate [Xopenex HFA] 45 mcg/actuation HFA aerosol inhaler 2 inh inhalation Q4H PRN (Reason: shortness of breath or wheezing) Qty: 15 0RF acetaminophen 500 mg capsule 1,000 mg PO Q8HR PRN (Reason: pain) Qty: 30 0RF cyclobenzaprine 5 mg tablet 5 mg PO TID PRN (Reason: muscle spasm) Qty: 30 0RF cyclobenzaprine 5 mg tablet 5 mg PO TID PRN (Reason: muscle spasm) Qty: 30 0RF flecainide 50 mg tablet 50 mg PO BID prednisone 20 mg tablet See Taper PO QDAY Qty: 7 0RF Taper: Prednisone Taper 60 mg DAILY for 1 Day and 0 Hour 40 mg DAILY for 2 Days and 0 Hour 20 mg DAILY for 2 Days and 0 Hour Rx Instructions: 60mg once daily for 1 day 40mg once daily for 2 days 20mg once daily for 2 days diltiazem HCl 120 mg capsule,extended release 12 hr 120 mg PO BID Qty: 30 0RF metoprolol tartrate 50 mg tablet 50 mg PO BID Qty: 60 0RF fluticasone propionate [Flonase Allergy Relief] 50 mcg/actuation spray,suspension 2 spray intranasal QDAY PRN (Reason: allergy symptoms) Qty: 16 0RF Rx Instructions: administer into each nostril azithromycin 250 mg tablet See Rx Instructions .ROUTE .COMPLEX 4 Days Qty: 6 0RF Rx Instructions: For 250 mg dose pack: take 500 mg today (day 1), then 250 mg for 4 days (days 2-5) Referrals: Sofía Aquino PA-C [Primary Care Provider] - In 1 week Problem List Clinical Impression: Sciatica of right side Patient/Caregiver Discharge Instructions Education Materials: Self Care Back Day, Understanding Lumbar Radiculopathy, ED Sciatica Print Language: Ecuadorean Stand Alone Forms: Serena Award Info., Patient Portal Info Letter
[2024-09-05] MEDS: ONDANSETRON ODT 4 MG TABRAP PO (17:54)
[2024-09-05] MEDS: GABAPENTIN 300 MG CAPSULE PO (17:54)
[2024-09-05] MEDS: HYDROmorphone INJ 2 MG/ML VIAL 1 MG IM (17:55)
== END 2024-09-05 18:18 | disposition home or self-care (01) ==
PROVIDERS: Emergency Provider Emergency Medicine; PCP Physician Assistant
DX: M54.31 Sciatica, right side (principal)
CPT/HCPCS: 96372; 99284; J3490; Q0162; A9270

== ENCOUNTER 2024-09-13 01:29 | Emergency (ER) | payer MEDICARE, SELFPAY ==
[2024-09-13] VITALS (9 sets, daily range): BP systolic 111–159; BP diastolic 55–77; PULSE 101–145; RESP 17–26; TEMP 36.9; O2SAT 83–97; BMI 30.2
--- NOTE | 2024-09-13 01:35 | EKG_ITS ---
[facility] (Formerly [facility]) Test Date: 2024-09-13 Pat Name: CHRISTY ERVIN Department: Room: - Gender: Female [employer]anger: : 1965 Requested By: Miguel Olguin Order Number: [id number] Reading MD: Miguel Olguin Measurements Intervals [place] Rate: 123 P: 67 AK: 171 QRS: 68 QRSD: 94 T: 59 QT: 309 QTc: 443 Interpretive Statements SINUS TACHYCARDIA ABNORMAL RHYTHM ECG Compared to ECG 07/13/2024 13:17:51 Sinus bradycardia no longer present /store/S0/[id number]
--- NOTE | 2024-09-13 02:06 | PC.NURSE ---
Dr. Olguin at the bedside.
--- NOTE | 2024-09-13 02:12 | PC.NURSE ---
RT called for breathing treatment.
[2024-09-13] MEDS: predniSONE 20 MG TABLET 60 MG PO (02:21)
[2024-09-13] MEDS: ALBUTEROL RT 2.5 MG/0.5 ML NEBU 10 MG INH (02:22)
[2024-09-13] MEDS: SODIUM CHLORIDE RT SOL 0.9% 3 ML NEBU INH (02:23)
[2024-09-13] MEDS: IPRATROPIUM RT 0.5 MG/ 2.5 ML NEBU 1 MG INH (02:23)
--- NOTE | 2024-09-13 02:26 | PD.EDADULT ---
ED General RME/HPI General Chief complaint: Shortness of Breath/Dyspnea Stated complaint: SOB Time Seen by Provider: 09/13/24 02:10 Arrival date/time: 09/13/24 01:29 RME / HPI RME / HPI narrative: JUSTO HPI: 59-year-old female with history of COPD on 2 L home oxygen, who presents to the emergency department with about 3 to 4 days of increasing cough, productive of white sputum, and shortness of breath in the last 2 days. She has been using her nebulizer every 4 hours for only temporary improvement. This evening she awoke suddenly with shortness of breath and a inability to completely cough or sputum out, therefore called EMS. She has since been able to cough a 3 and feels much improved. She does note shortness of breath and wheezing that is mildly worse than her baseline. She denies chest pain. Related Data Home Medications ?Medication ?Instructions ?Recorded ?Confirmed flecainide 50 mg tablet 50 mg PO BID 08/17/22 08/17/22 Previous Rx's ?Medication ?Instructions ?Recorded prednisone 20 mg tablet See Taper PO QDAY #7 tabs 02/24/24 diltiazem HCl 120 mg 120 mg PO BID #30 caps 05/16/24 capsule,extended release 12 hr levalbuterol tartrate 45 2 inh inhalation Q4H PRN shortness 06/14/24 mcg/actuation aerosol inhaler of breath or wheezing #15 grams (Xopenex HFA) metoprolol tartrate 50 mg tablet 50 mg PO BID #60 tabs 06/18/24 acetaminophen 500 mg capsule 1,000 mg (2 x 500 mg) PO Q8HR PRN 07/14/24 pain #30 caps cyclobenzaprine 5 mg tablet 5 mg PO TID PRN muscle spasm #30 07/14/24 tabs fluticasone propionate 50 2 spray intranasal QDAY PRN 08/05/24 mcg/actuation nasal allergy symptoms #16 mL spray,suspension (Flonase Allergy Relief) azithromycin 250 mg tablet See Rx Instructions PO .COMPLEX 4 08/12/24 days #6 tabs cyclobenzaprine 5 mg tablet 5 mg PO TID PRN muscle spasm #30 08/25/24 tabs gabapentin 300 mg capsule 300 mg PO TID #30 caps 09/05/24 hydrocodone 5 mg-acetaminophen 325 1 tab PO Q8H PRN pain #14 tabs 09/05/24 mg tablet benzonatate 100 mg capsule 100 mg PO TID PRN cough #10 caps 09/13/24 doxycycline monohydrate 100 mg 100 mg PO BID #10 caps 09/13/24 capsule prednisone 50 mg tablet 50 mg PO QDAY #4 tabs 09/13/24 Allergies Allergy/AdvReac Type Severity Reaction Status Date / Time ketorolac [From Toradol] Allergy Intermediate Rash Verified 08/09/24 07:27 Review of Systems Review of Systems Systems Reviewed: All systems reviewed, normal except as documented ED Exam Narrative Physical exam: GENERAL APPEARANCE: AxOx4, generally well-appearing, no acute distress, Sleeping comfortably, able to speak full sentences HEENT: NC, AT. MMM. EOMI, clear conjunctiva, oropharynx clear. NECK: Supple without lymphadenopathy. No stiffness or restricted ROM. HEART: Normal rate and regular rhythm, normal S1/S1, no m/r/g LUNGS: Diminished breath sounds in all lung khan, end inspiratory wheezes and arguelles expiratory wheezes. No rhonchi or rales ABDOMEN: Soft, nontender, nondistended with good bowel sounds heard. BACK: No midline C/T/L spine pain or deformity, No CVAT, no obvious deformity. EXTREMITIES: Without cyanosis, clubbing or edema. MUSCULOSKELETAL: FROM of all major joints, no chest tenderness NEUROLOGICAL: Grossly nonfocal. Alert and oriented, moving all 4 extremities. CN not formally tested but appear grossly intact. Observed to ambulate with normal gait. Skin: Warm and dry without any rash. Course Quality Measures none Orders Category Date Time Status EKG (ED ONLY) *Do not use* NOW Care 09/13/24 01:35 Completed EKG (ED Only) Stat Exams 09/13/24 01:35 Draft ALBUTEROL RT 0.5ml [Proventil Rt 0.5ml] Med 09/13/24 02:10 Discontinued 10 mg INH X1 ONE Famotidine [Pepcid] Med 09/13/24 04:32 Discontinued 40 mg PO X1 ONE Ipratropium [place] Rt Lauren [Atrovent Rt Lauren] Med 09/13/24 02:10 Discontinued 1 mg INH X1 ONE Sodium Chloride Rt Lauren 0.9% [NS Rt Lauren 0.9%] Med 09/13/24 02:10 Active 3 ml INH PRN PRN mg Hyd/Al Hyd/Bunny Susp [Maalox Susp] Med 09/13/24 04:32 Discontinued 30 ml PO X1 ONE predniSONE Med 09/13/24 02:10 Discontinued 60 mg PO X1 ONE Reevaluation(s) Reevaluation #1: Patient with multiple improvements in breathing, she is resting comfortably, oxygen saturation of 88 to 89% on 2 L nasal cannula which is appropriate given her chronic COPD status. She now has developed mild left upper quadrant pain with nausea suggestive of gastritis given prednisone. She will be given antacids including oral Maalox and Pepcid. Time: 04:00 Vital Signs Vital signs: Vital Signs Pulse Rate 145 H 09/13/24 01:35 Respiratory Rate 26 H 09/13/24 01:35 Blood Pressure 159/55 H 09/13/24 01:35 Pulse Oximetry (%) 84 L 09/13/24 01:35 Oxygen Delivery Method Room Air 09/13/24 01:35 Procedures -ED EKG Interpretation #1: Date of EK09/13/24 Time of EK:40 Rate: 123 Interpretation: Interpreted by me EKG Impression: No acute ST-T changes, Sinus tachycardia, Normal intervals and Normal axis MDM Patient data External records reviewed:: [facility] previous records Clinical information provided by:: patient Social determinants that could affect healthcare access:: none Patient has the following chronic illnesses:: COPD How is presenting disease/condition affected by chronic disease/condition?: caused by Evaluation data The following diagnostics were reviewed and interpreted by me:: EKG tracing(s) Lab and/or radiology exams considered but not ordered:: Respiratory Interpretation Summary: See EKG interpretation Medications Medications considered but not ordered:: None Medication administrations:: Medication Administration History Sodium Chloride (Sodium Chloride Rt Lauren 0.9% 3 Ml Nebu) 3 ml INH PRN PRN PRN Reason: SOLN Stop: 10/13/24 02:09 Last Admin: 09/13/24 02:23 Dose: 3 ml Documented By: Discontinued Medications Al Hydrox/Mg Hydrox/Simethicone (Mg Hyd/Al Hyd/Bunny (Maalox Reg) Susp 30 Ml Udc) 30 ml PO X1 ONE Stop: 09/13/24 04:33 Last Admin: 09/13/24 04:45 Dose: 30 ml Documented By: KG Albuterol (Albuterol Rt 2.5 Mg/0.5 Ml Nebu) 10 mg INH X1 ONE Stop: 09/13/24 02:11 Last Admin: 09/13/24 02:22 Dose: 10 mg Documented By: GABY Famotidine (Famotidine 20 Mg Tablet) 40 mg PO X1 ONE Stop: 09/13/24 04:33 Last Admin: 09/13/24 04:45 Dose: 40 mg Documented By: KG Ipratropium [place] (Ipratropium Rt 0.5 Mg/ 2.5 Ml Nebu) 1 mg INH X1 ONE Stop: 09/13/24 02:11 Last Admin: 09/13/24 02:23 Dose: 1 mg Documented By: GABY Prednisone (Prednisone 20 Mg Tablet) 60 mg PO X1 ONE Stop: 09/13/24 02:11 Last Admin: 09/13/24 02:21 Dose: 60 mg Documented By: KG Above Consultations Consultation(s) initiated? (list below): No Diagnosis Differential Diagnosis ED Complaint MDM: COPD exacerbation, pneumonia, acute bronchitis, viral syndrome Most likely diagnosis given after review of the tests above:: Acute bronchitis, COPD exacerbation Admission Indicated Admission indicated?: not indicated Explain why admission is indicated or not indicated:: Patient is resting comfortably without significant respiratory distress. She has appropriate saturations and chronic lung disease on 2 L home oxygen. Admission Request Was there a request for admission?: No Disposition Plan Disposition Plan: Discharge Discharge Attestation Discharge Attestation: The patient and all family members were given an opportunity to ask questions and understood the discharge instructions. Discharge instructions specifically effects, indications for sooner follow up or return to the emergency department, and the expected course of current diagnosis. Patient condition: Stable Medical Decision Making MDM Narrative MDM Narrative: Ms. De La Garza is well-known to me for chronic recurrent COPD exacerbations. Patient has not a cough for the last 3 to 4 days without fevers. She does note several sick contacts. Patient otherwise a stable vital signs here in the emergency department. She does not appear to be in respiratory distress, however on auscultation she does have diminished breath sounds and expiratory wheezes. As result she was treated aggressively with nebulized bronchodilators and oral steroids. There was moderate improvement in her symptoms and she remained resting comfortably and in fact sleeping during emergency department. She has oxygen saturations are appropriate for chronic lung disease. She is well-appearing, does not have chest pain, further workup laboratory chest x-ray are not indicated today. Given her cough, chronic COPD status, and significant secondhand smoke exposure, will cover empirically with oral antibiotics for acute bronchitis, all while continuing oral steroids for total of 5 days. As she is resting comfortably, stable vital signs, response to treatment she is appropriate for close outpatient follow-up. Differential Diagnosis Differential Diagnosis: COPD exacerbation, pneumonia, acute bronchitis, viral syndrome Critical Care Time Critical Care Time Critical Care Time: Yes Total Critical Care Time (min.): 35 Attestation: Excluding billable procedures for the Response, analysis, management, treatment, and documentation of at the very possible risk of cardiopulmonary decompensation Discharge Plan Plan Patient Disposition: HOME (Self Care) Prescriptions/Referrals Prescriptions/Med Rec: New doxycycline monohydrate 100 mg capsule 100 mg PO BID Qty: 10 0RF prednisone 50 mg tablet 50 mg PO QDAY Qty: 4 0RF benzonatate 100 mg capsule 100 mg PO TID PRN (Reason: cough) Qty: 10 0RF No Action levalbuterol tartrate [Xopenex HFA] 45 mcg/actuation HFA aerosol inhaler 2 inh inhalation Q4H PRN (Reason: shortness of breath or wheezing) Qty: 15 0RF acetaminophen 500 mg capsule 1,000 mg PO Q8HR PRN (Reason: pain) Qty: 30 0RF cyclobenzaprine 5 mg tablet 5 mg PO TID PRN (Reason: muscle spasm) Qty: 30 0RF cyclobenzaprine 5 mg tablet 5 mg PO TID PRN (Reason: muscle spasm) Qty: 30 0RF gabapentin 300 mg capsule 300 mg PO TID Qty: 30 0RF hydrocodone-acetaminophen 5-325 mg tablet 1 tab PO Q8H MDD 3 PRN (Reason: pain) Qty: 14 0RF flecainide 50 mg tablet 50 mg PO BID prednisone 20 mg tablet See Taper PO QDAY Qty: 7 0RF Taper: Prednisone Taper 60 mg DAILY for 1 Day and 0 Hour 40 mg DAILY for 2 Days and 0 Hour 20 mg DAILY for 2 Days and 0 Hour Rx Instructions: 60mg once daily for 1 day 40mg once daily for 2 days 20mg once daily for 2 days diltiazem HCl 120 mg capsule,extended release 12 hr 120 mg PO BID Qty: 30 0RF metoprolol tartrate 50 mg tablet 50 mg PO BID Qty: 60 0RF fluticasone propionate [Flonase Allergy Relief] 50 mcg/actuation spray,suspension 2 spray intranasal QDAY PRN (Reason: allergy symptoms) Qty: 16 0RF Rx Instructions: administer into each nostril azithromycin 250 mg tablet See Rx Instructions .ROUTE .COMPLEX 4 Days Qty: 6 0RF Rx Instructions: For 250 mg dose pack: take 500 mg today (day 1), then 250 mg for 4 days (days 2-5) Referrals: Sofía Aquino PA-C [Primary Care Provider] - In 1 week Problem List Clinical Impression: Acute exacerbation of chronic obstructive pulmonary disease (COPD), Bronchitis Patient/Caregiver Discharge Instructions Education Materials: ED Bronchitis with Wheezing (Adult), ED COPD Flare Additional Instructions: Follow-up with your primary care doctor in 3 to 5 days for recheck. You can return to the emergency department sooner symptoms worsen or if you notice any new, concerning issues. Print Language: Cook Islander Stand Alone Forms: Serena Award Info., Patient Portal Info Letter
--- NOTE | 2024-09-13 04:31 | PC.NURSE ---
Dr. Olguin at the bedside.
[2024-09-13] MEDS: MG HYD/AL HYD/SIME (Maalox Reg) SUSP 30 ML UDC PO (04:45)
[2024-09-13] MEDS: FAMOTIDINE 20 MG TABLET 40 MG PO (04:45)
--- NOTE | 2024-09-13 05:41 | PC.NURSE ---
Went in room to discharge pt. Pt states she's not ready to leave and would like to speak to doctor about why she didn't get a chest XR bc she feels that she is not ok to go home. MD unavailable at the moment - will notify when he is. director housekeeping Srinivas informed.
== END 2024-09-13 06:02 | disposition home or self-care (01) ==
PROVIDERS: Emergency Provider Emergency Medicine; PCP Physician Assistant; Referring Provider Emergency Medicine
DX: J44.1 Chronic obstructive pulmonary disease with (acute) exacerbation (principal); Z99.81 Dependence on supplemental oxygen
CPT/HCPCS: 93005; 94644; 99283; J7512; A9270

== ENCOUNTER 2024-09-26 10:20 | Emergency (ER) | payer MEDICARE, SELFPAY ==
--- NOTE | 2024-09-26 10:51 | XR_ITS ---
Examination:Right hip AP, lateral, AP pelvis 3 views Technique: Hip AP lateral, AP pelvis, 3 views Exam date and time:September 26, 2024 1056 hrs. Indications: Onset right hip pain today Findings: Prominent osteopenia Advanced right hip osteoarthritis No right hip fracture Severe left hip osteoarthritis, suspicious for early avascular necrosis left femoral head Bones of the pelvis intact Impression: Advanced right hip osteoarthritis Severe left hip osteoarthritis. Suspicious for early avascular necrosis left femoral head, consider elective MRI pelvis without contrast follow-up
[2024-09-26 11:10] VITALS: BP 131/75; PULSE 82; RESP 18; TEMP 36.8; O2SAT 95; BMI 27.3
--- NOTE | 2024-09-26 14:18 | PD.EDHIP ---
Lower Extremity Injury RME/HPI General Chief Complaint: Hip Injury/Pain Stated Complaint: RIGHT LEG/HIP PAIN; FEEL LIKE HAVE FLU ; NAUSEA Time Seen by Provider: 09/26/24 10:30 Arrival date/time: 09/26/24 10:20 59-year-old female with history of COPD and who is oxygen dependent presents to the emergency department complains of right hip pain worse with movement which radiates down her right leg patient reports no saddle anesthesia no loss of bowel or bladder patient also reports runny nose and congestion Limitations: no limitations Related Data Home Medications ?Medication ?Instructions ?Recorded ?Confirmed flecainide 50 mg tablet 50 mg PO BID 08/17/22 08/17/22 Previous Rx's ?Medication ?Instructions ?Recorded prednisone 20 mg tablet See Taper PO QDAY #7 tabs 02/24/24 diltiazem HCl 120 mg 120 mg PO BID #30 caps 05/16/24 capsule,extended release 12 hr levalbuterol tartrate 45 2 inh inhalation Q4H PRN shortness 06/14/24 mcg/actuation aerosol inhaler of breath or wheezing #15 grams (Xopenex HFA) metoprolol tartrate 50 mg tablet 50 mg PO BID #60 tabs 06/18/24 acetaminophen 500 mg capsule 1,000 mg (2 x 500 mg) PO Q8HR PRN 07/14/24 pain #30 caps cyclobenzaprine 5 mg tablet 5 mg PO TID PRN muscle spasm #30 07/14/24 tabs fluticasone propionate 50 2 spray intranasal QDAY PRN 08/05/24 mcg/actuation nasal allergy symptoms #16 mL spray,suspension (Flonase Allergy Relief) azithromycin 250 mg tablet See Rx Instructions PO .COMPLEX 4 08/12/24 days #6 tabs cyclobenzaprine 5 mg tablet 5 mg PO TID PRN muscle spasm #30 08/25/24 tabs gabapentin 300 mg capsule 300 mg PO TID #30 caps 09/05/24 hydrocodone 5 mg-acetaminophen 325 1 tab PO Q8H PRN pain #14 tabs 09/05/24 mg tablet benzonatate 100 mg capsule 100 mg PO TID PRN cough #10 caps 09/13/24 doxycycline monohydrate 100 mg 100 mg PO BID #10 caps 09/13/24 capsule prednisone 50 mg tablet 50 mg PO QDAY #4 tabs 09/13/24 hydrocodone 5 mg-acetaminophen 325 1 tab PO BID PRN pain #6 tabs 09/26/24 mg tablet meloxicam 7.5 mg tablet 7.5 mg PO QDAY 7 days #7 tabs 09/26/24 Allergies Allergy/AdvReac Type Severity Reaction Status Date / Time ketorolac [From Toradol] Allergy Intermediate Rash Verified 09/26/24 10:22 Review of Systems Review of Systems Systems Reviewed: All systems reviewed, normal except as documented Constitutional Constitutional: Reports system reviewed and no additional complaints, except as documented, Denies fever(s) and Denies headache(s) Eyes Eyes: Reports system reviewed and no additional complaints, except as documented and Denies blurry vision ENT Ears, Nose, Mouth, and Throat: Reports system reviewed and no additional complaints, except as documented, Denies headache(s), Denies nasal congestion and Denies nasal discharge Cardiovascular Cardiovascular: Reports system reviewed and no additional complaints, except as documented, Denies chest pain and Denies dyspnea Respiratory Respiratory: Reports system reviewed and no additional complaints, except as documented, Denies chest congestion, Denies cough and Denies dyspnea Gastrointestinal Gastrointestinal: Reports system reviewed and no additional complaints, except as documented and Denies abdominal pain Musculoskeletal Musculoskeletal: Reports system reviewed and no additional complaints, except as documented, Reports arthralgias, Denies joint swelling, Denies numbness, Reports stiffness and Denies tingling Integumentary/Breasts Skin/Breast: Reports system reviewed and no additional complaints, except as documented and Denies rash Neurologic Neurologic: Reports system reviewed and no additional complaints, except as documented, Reports as per HPI, Denies headache(s), Denies numbness and Denies tingling Past Medical History Past Medical History NEUROLOGIC: Negative Neurological Disorders CARDIAC: Positive Cardiac Disorders, Cardiac Arrhythmia, Atrial Fibrillation and Hypertension; Negative Congestive Heart Failure RESPIRATORY: Positive Chronic Obstructive Pulmonary Disease (COPD) and Asthma GASTROINTESTINAL: Negative Gastrointestinal Disorders GENITOURINARY: Negative Genitourinary Disorders or Renal Disease MUSCULOSKELETAL: Positive Arthritis; Negative Musculoskeletal Disorders ENT: Positive Deafness ENDOCRINE: Negative Diabetes Mellitus Type 1 or Diabetes Mellitus Type 2 HEMATOLOGIC: Negative Blood Disorders or Sickle Cell Disease OTHER HISTORY: Positive Cancer and Ovarian Cancer; Negative Blood Transfusions, Blood Transfusion Reaction or Anesthesia Reactions Surgical History SURGICAL: Positive Hysterectomy Social History SMOKING STATUS: Never smoker SECOND HAND EXPOSURE: Yes SUBSTANCE USE: does not use ED Exam General Limitations: Present no limitations General appearance: Present alert and in no apparent distress Head Head exam: Present atraumatic, normocephalic and normal inspection Eye Eye exam: Present normal appearance, PERRL and EOMI; Absent conjunctival injection ENT ENT exam: Present normal exam, normal oropharynx and mucous membranes moist Neck Neck exam: Present normal inspection, full ROM and trachea midline Chest Chest inspection: Present normal inspection and symmetric chest wall rise Respiratory Respiratory exam: Present normal lung sounds bilaterally; Absent respiratory distress Cardiovascular Cardiovascular exam: Present regular rate, normal rhythm and normal heart sounds Abdominal Exam Abdominal exam: Present soft and normal bowel sounds; Absent distention or tenderness Extremities Exam Extremities exam: Present normal inspection, full ROM, tenderness (Right hip pain) and normal capillary refill; Absent pedal edema, joint swelling or calf tenderness Back Exam Back exam: Present normal inspection, full ROM, tenderness, muscle spasm and paraspinal tenderness; Absent CVA tenderness (R) or CVA tenderness (L) Neurological Exam Neurological exam: Present alert, oriented X3 and CN II-XII intact Psychiatric Psychiatric exam: Present normal affect and normal mood Skin Skin exam: Present warm, dry, intact and normal color Course Quality Measures none Orders Category Date Time Status Bedside Influenza A&B Antigen Test NOW Care 09/26/24 10:51 Completed XR hip RT w pelvis 2-3V Stat Exams 09/26/24 10:51 Completed Albuterol/Ipratr Rt Lauren [Duoneb Rt Lauren] Med 09/26/24 14:14 Discontinued 3 ml INH X1 ONE Levalbuterol Rt [Xopenex Rt Lauren] Med 09/26/24 14:31 Discontinued 1.25 mg INH X1 ONE Sodium Chloride Rt Lauren 0.9% [NS Rt Lauren 0.9%] Med 09/26/24 14:31 Discontinued 3 ml INH PRN PRN Vital Signs Vital signs: Vital Signs Temperature 98.3 F 09/26/24 11:10 Pulse Rate 82 09/26/24 11:10 Respiratory Rate 18 09/26/24 11:10 Blood Pressure 131/75 H 09/26/24 11:10 Pulse Oximetry (%) 95 09/26/24 11:10 Oxygen Delivery Method Nasal Cannula 09/26/24 11:10 Oxygen Flow Rate 1.5 09/26/24 11:10 O2 saturation 95% on 1.5 L Extremity Injury, Lower MDM Narrative MDM Narrative:: 59-year-old female with history of COPD and who is oxygen dependent presents to the emergency department complains of right hip pain worse with movement which radiates down her right leg patient reports no saddle anesthesia no loss of bowel or bladder patient also reports runny nose and congestion On exam patient well-appearing patient does not appear ill or toxic in no acute distress Imaging of right hip obtained patient has osteoarthritis Patient requesting breathing treatment prior to discharge patient was given per her request Patient has chronic wheezing Patient discharged home in no distress to follow-up with primary care doctor in the next 24 to 48 hours and for any worsening symptoms to return to the ER immediately Patient data External records reviewed:: [facility] previous records Clinical information provided by:: patient Social determinants that could affect healthcare access:: none Patient has the following chronic illnesses:: COPD, arthritis, SVT How is presenting disease/condition affected by chronic disease/condition?: exacerbated by Evaluation data The following diagnostics were reviewed and interpreted by me:: lab results and radiology exam(s) Lab and/or radiology exams considered but not ordered:: Labs, radiology obtain Interpretation Summary: Reviewed by me Medications / Prescriptions Medications or Prescriptions considered but not ordered:: Given Medication administrations:: Medication Administration History Discontinued Medications Albuterol/Ipratropium (Albuterol/Ipratropium (Duoneb) Rt Lauren 3 Ml Nebu) 3 ml INH X1 ONE Stop: 09/26/24 14:15 Last Admin: 09/26/24 14:32 Dose: Not Given Documented By: ANDRIA Non-Admin Reason: Cancelled by Provider Levalbuterol HCl (Levalbuterol Rt 1.25 Mg/0.5 Ml Nebu) 1.25 mg INH X1 ONE Stop: 09/26/24 14:32 Last Admin: 09/26/24 14:35 Dose: 1.25 mg Documented By: ANDRIA Sodium Chloride (Sodium Chloride Rt Lauren 0.9% 3 Ml Nebu) 3 ml INH PRN PRN PRN Reason: SOLN Stop: 10/26/24 14:30 Last Admin: 09/26/24 14:35 Dose: 3 ml Documented By: ANDRIA Given Consultations Consultation(s) initiated? (list below): No Diagnosis Extremity Injury, Lower Differential Diagnosis: other (Osteoarthritis, hip) Most likely diagnosis given after review of the tests above:: Osteoarthritis Admission Indicated Admission indicated?: not indicated Admission Request Was there a request for admission?: No Disposition Plan Disposition Plan: Discharge Discharge Attestation Discharge Attestation: The patient and all family members were given an opportunity to ask questions and understood the discharge instructions. Discharge instructions specifically effects, indications for sooner follow up or return to the emergency department, and the expected course of current diagnosis. Patient condition: Stable Discharge Plan Plan Patient Disposition: HOME (Self Care) Disposition Comment: stable Prescriptions/Referrals Prescriptions/Med Rec: New hydrocodone-acetaminophen 5-325 mg tablet 1 tab PO BID MDD 10 PRN (Reason: pain) Qty: 6 0RF meloxicam 7.5 mg tablet 7.5 mg PO QDAY 7 Days Qty: 7 0RF No Action levalbuterol tartrate [Xopenex HFA] 45 mcg/actuation HFA aerosol inhaler 2 inh inhalation Q4H PRN (Reason: shortness of breath or wheezing) Qty: 15 0RF acetaminophen 500 mg capsule 1,000 mg PO Q8HR PRN (Reason: pain) Qty: 30 0RF cyclobenzaprine 5 mg tablet 5 mg PO TID PRN (Reason: muscle spasm) Qty: 30 0RF cyclobenzaprine 5 mg tablet 5 mg PO TID PRN (Reason: muscle spasm) Qty: 30 0RF gabapentin 300 mg capsule 300 mg PO TID Qty: 30 0RF hydrocodone-acetaminophen 5-325 mg tablet 1 tab PO Q8H MDD 3 PRN (Reason: pain) Qty: 14 0RF doxycycline monohydrate 100 mg capsule 100 mg PO BID Qty: 10 0RF prednisone 50 mg tablet 50 mg PO QDAY Qty: 4 0RF benzonatate 100 mg capsule 100 mg PO TID PRN (Reason: cough) Qty: 10 0RF flecainide 50 mg tablet 50 mg PO BID prednisone 20 mg tablet See Taper PO QDAY Qty: 7 0RF Taper: Prednisone Taper 60 mg DAILY for 1 Day and 0 Hour 40 mg DAILY for 2 Days and 0 Hour 20 mg DAILY for 2 Days and 0 Hour Rx Instructions: 60mg once daily for 1 day 40mg once daily for 2 days 20mg once daily for 2 days diltiazem HCl 120 mg capsule,extended release 12 hr 120 mg PO BID Qty: 30 0RF metoprolol tartrate 50 mg tablet 50 mg PO BID Qty: 60 0RF fluticasone propionate [Flonase Allergy Relief] 50 mcg/actuation spray,suspension 2 spray intranasal QDAY PRN (Reason: allergy symptoms) Qty: 16 0RF Rx Instructions: administer into each nostril azithromycin 250 mg tablet See Rx Instructions .ROUTE .COMPLEX 4 Days Qty: 6 0RF Rx Instructions: For 250 mg dose pack: take 500 mg today (day 1), then 250 mg for 4 days (days 2-5) Referrals: Sofía Aquino PA-C [Primary Care Provider] - In 1 week Problem List Clinical Impression: Arthritis of right hip, URI (upper respiratory infection) Patient/Caregiver Discharge Instructions Education Materials: ED RICE Additional Instructions: Please follow up with your primary care doctor in the next 24-48hrs for any worsening symptoms return here immediately Print Language: Paraguayan Stand Alone Forms: Serena Award Info., Patient Portal Info Letter PA/JAKOB Supervising Physician PA/JAKOB Supervising Physician: Dr garland
[2024-09-26] MEDS: LEVALBUTEROL RT 1.25 MG/0.5 ML NEBU INH (14:35)
[2024-09-26] MEDS: SODIUM CHLORIDE RT SOL 0.9% 3 ML NEBU INH (14:35)
[2024-09-26 14:37] VITALS: PULSE 89; RESP 18; O2SAT 97
== END 2024-09-26 14:45 | disposition home or self-care (01) ==
PROVIDERS: Emergency Provider Emergency Medicine; PCP Physician Assistant
DX: M16.11 Unilateral primary osteoarthritis, right hip (principal); J06.9 Acute upper respiratory infection, unspecified; Z77.22 Contact with and (suspected) exposure to environmental tobacco smoke (acute) (chronic); J44.89 Other specified chronic obstructive pulmonary disease; Z99.81 Dependence on supplemental oxygen
CPT/HCPCS: 73502; 87400; 94640; 99283; A9270

== ENCOUNTER 2024-10-12 06:37 | Emergency (ER) | payer MEDICARE, SELFPAY ==
[2024-10-12 06:38] VITALS: BMI 29.2
[2024-10-12 06:46] VITALS: BP 100/52; PULSE 136; RESP 18; TEMP 36.6; O2SAT 95
--- NOTE | 2024-10-12 06:54 | XR_ITS ---
Examination: AP chest single view Technique one AP portable upright chest single view Exam date and time: October 12, 2024 0709 hrs. Comparison August 11, 2024 Indications: Shortness of breath today. Findings: Suspicious for early left base pneumonia, obscuring detail left hemidiaphragm Normal heart size Mild vascular congestion Prominent osteopenia Impression: Suspicious for early left base pneumonia
--- NOTE | 2024-10-12 07:25 | PD.EDARRY ---
ED Arrhythmia Palp. RME/HPI General Chief Complaint: Arrhythmia/Palpitations Stated Complaint: HEART BEATING FAST Time Seen by Provider: 10/12/24 07:11 Arrival date/time: 10/12/24 06:37 RME / HPI RME / HPI narrative: DR. RUCKER MAIN ED EVALUATION: 59 year old female with past medical history significant for hypertension and asthma presents to the Emergency Department with complaint of chest palpitations this morning, she woke up with her heart racing. No chest pain, cough, or other associated symptoms. Related Data Home Medications ?Medication ?Instructions ?Recorded ?Confirmed flecainide 50 mg tablet 50 mg PO BID 08/17/22 08/17/22 Previous Rx's ?Medication ?Instructions ?Recorded prednisone 20 mg tablet See Taper PO QDAY #7 tabs 02/24/24 diltiazem HCl 120 mg 120 mg PO BID #30 caps 05/16/24 capsule,extended release 12 hr levalbuterol tartrate 45 2 inh inhalation Q4H PRN shortness 06/14/24 mcg/actuation aerosol inhaler of breath or wheezing #15 grams (Xopenex HFA) metoprolol tartrate 50 mg tablet 50 mg PO BID #60 tabs 06/18/24 acetaminophen 500 mg capsule 1,000 mg (2 x 500 mg) PO Q8HR PRN 07/14/24 pain #30 caps cyclobenzaprine 5 mg tablet 5 mg PO TID PRN muscle spasm #30 07/14/24 tabs fluticasone propionate 50 2 spray intranasal QDAY PRN 08/05/24 mcg/actuation nasal allergy symptoms #16 mL spray,suspension (Flonase Allergy Relief) azithromycin 250 mg tablet See Rx Instructions PO .COMPLEX 4 08/12/24 days #6 tabs cyclobenzaprine 5 mg tablet 5 mg PO TID PRN muscle spasm #30 08/25/24 tabs gabapentin 300 mg capsule 300 mg PO TID #30 caps 09/05/24 hydrocodone 5 mg-acetaminophen 325 1 tab PO Q8H PRN pain #14 tabs 09/05/24 mg tablet benzonatate 100 mg capsule 100 mg PO TID PRN cough #10 caps 09/13/24 doxycycline monohydrate 100 mg 100 mg PO BID #10 caps 09/13/24 capsule prednisone 50 mg tablet 50 mg PO QDAY #4 tabs 09/13/24 hydrocodone 5 mg-acetaminophen 325 1 tab PO BID PRN pain #6 tabs 09/26/24 mg tablet cefuroxime axetil 500 mg tablet 500 mg PO BID #14 tabs 10/12/24 Allergies Allergy/AdvReac Type Severity Reaction Status Date / Time ketorolac (From Toradol) Allergy Intermediate Rash Verified 09/26/24 10:22 Review of Systems Review of Systems Systems Reviewed: All systems reviewed, normal except as documented Narrative Review of Systems: GEN: No fever, no chills, no weight loss EYES: No discharge, no visual changes, no pain HEENT: No ear pain, no congestion, no sore throat PULM: No shortness of breath, no cough, no congestion CV: No chest pain, no dyspnea on exertion, + palpitations GI: No nausea, no vomiting, no diarrhea, no pain, no constipation : No frequency, no urgency and no dysuria MUSC/SKEL: No joint pain, no back pain SKIN: No rash PSYCH: No hallucinations, no depression HEME/LYMPH: No easy bleeding or bruising tendencies NEURO: No weakness, no headache Past Medical History Past Medical History CARDIAC: Positive Cardiac Disorders, Cardiac Arrhythmia, Atrial Fibrillation and Hypertension RESPIRATORY: Positive Chronic Obstructive Pulmonary Disease (COPD) and Asthma MUSCULOSKELETAL: Positive Arthritis ENT: Positive Deafness OTHER HISTORY: Positive Cancer and Ovarian Cancer Surgical History SURGICAL: Positive Hysterectomy Social History SMOKING STATUS: Never smoker SECOND HAND EXPOSURE: Yes SUBSTANCE USE: does not use ALCOHOL: Never ED Exam Narrative Physical exam: GENERAL APPEARANCE: alert and oriented x 4, well-developed, well-nourished VITALS: All vitals were reviewed and the pulse ox is 92% on room air, which is hypoxic according to my interpretation. HEENT: Normocephalic, atraumatic; pupils equal, round, reactive to light; EOMI; mucous membranes pink, moist; oropharynx clear NECK: Supple LUNGS: CTABL; no wheezes, no rales, no rhonchi HEART: Regular rate, regular rhythm; normal S1, S2; no murmurs ABDOMEN: non distended; normal BS; soft, no tenderness, no guarding, no rebound; no masses, no organomegaly, no hernia BACK: no CVA tenderness EXTREMITIES: atraumatic; no edema NEUROLOGIC: awake; alert and oriented x4; cranial nerves II-XII grossly intact; no focal sensory or motor deficits PSYCHIATRIC: appropriate mood and affect SKIN: warm, dry, normal color; no rashes Course Quality Measures none Orders Category Date Time Status Director [employer] NOW Care 10/12/24 06:54 Active EKG (ED ONLY) *Do not use* NOW Care 10/12/24 06:54 Completed EKG (ED Only) Stat Exams 10/12/24 06:54 Ordered XR chest 1V portable Stat Exams 10/12/24 06:54 Taken B-Type Natriuretic Peptide Stat Lab 10/12/24 07:09 Received CBC Stat Lab 10/12/24 07:09 Received Comprehensive Metabolic Panel Stat Lab 10/12/24 07:09 Received Magnesium Stat Lab 10/12/24 07:09 Received Partial Thromboplastin Time Stat Lab 10/12/24 07:09 Received Prothrombin Time with INR Stat Lab 10/12/24 07:09 Received Troponin I Stat Lab 10/12/24 07:09 Received Vital Signs Vital signs: Vital Signs Temperature 98 F 10/12/24 06:46 Pulse Rate 136 H 10/12/24 06:46 Respiratory Rate 18 10/12/24 06:46 Blood Pressure 100/52 L 10/12/24 06:46 Pulse Oximetry (%) 95 10/12/24 06:46 Oxygen Delivery Method Nasal Cannula 10/12/24 06:46 Oxygen Flow Rate 1.5 10/12/24 06:46 Arrhythmia/Palpitations MDM Narrative MDM Narrative:: ICandida am scribing for and in the presence of Dr. Rucker. Patient data External records reviewed:: [facility] previous records (Reviewed last ED visit dated 09/26/24, discharged with the following: Arthritis of right hip) Clinical information provided by:: patient Social determinants that could affect healthcare access:: none Patient has the following chronic illnesses:: hypertension and asthma How is presenting disease/condition affected by chronic disease/condition?: exacerbated by Evaluation data The following diagnostics were reviewed and interpreted by me:: lab results and radiology exam(s) Lab and/or radiology exams considered but not ordered:: none Interpretation Summary: Procedure(s): XR chest 1V portable Accession Number(s): [id number] cc: Dimple (RONNY),Marcin JEFFERSON; Terrell Padgett MD; Sofía Aquino PA-C~ Examination: AP chest single view Technique one AP portable upright chest single view Exam date and time: October 12, 2024 0709 hrs. Comparison August 11, 2024 Indications: Shortness of breath today. Findings: Suspicious for early left base pneumonia, obscuring detail left hemidiaphragm Normal heart size Mild vascular congestion Prominent osteopenia Impression: Suspicious for early left base pneumonia Dictated By: Terrell Padgett MD Medications / Prescriptions Medications or Prescriptions considered but not ordered:: none Medication administrations:: none Consultations Consultation(s) initiated? (list below): No Diagnosis Differential diagnosis arrhythmia/palpitations: palpitations, anxiety and other (atypical chest pain, pneumonia) Most likely diagnosis given after review of the tests above:: Pneumonia Admission Indicated Admission indicated?: not indicated Admission Request Was there a request for admission?: No Disposition Plan Disposition Plan: Discharge Discharge Attestation Discharge Attestation: The patient and all family members were given an opportunity to ask questions and understood the discharge instructions. Discharge instructions specifically effects, indications for sooner follow up or return to the emergency department, and the expected course of current diagnosis. Patient condition: Stable Discharge Plan Plan Patient Disposition: HOME (Self Care) Prescriptions/Referrals Prescriptions/Med Rec: New cefuroxime axetil 500 mg tablet 500 mg PO BID Qty: 14 0RF No Action levalbuterol tartrate [Xopenex HFA] 45 mcg/actuation HFA aerosol inhaler 2 inh inhalation Q4H PRN (Reason: shortness of breath or wheezing) Qty: 15 0RF acetaminophen 500 mg capsule 1,000 mg PO Q8HR PRN (Reason: pain) Qty: 30 0RF cyclobenzaprine 5 mg tablet 5 mg PO TID PRN (Reason: muscle spasm) Qty: 30 0RF cyclobenzaprine 5 mg tablet 5 mg PO TID PRN (Reason: muscle spasm) Qty: 30 0RF gabapentin 300 mg capsule 300 mg PO TID Qty: 30 0RF hydrocodone-acetaminophen 5-325 mg tablet 1 tab PO Q8H MDD 3 PRN (Reason: pain) Qty: 14 0RF doxycycline monohydrate 100 mg capsule 100 mg PO BID Qty: 10 0RF prednisone 50 mg tablet 50 mg PO QDAY Qty: 4 0RF benzonatate 100 mg capsule 100 mg PO TID PRN (Reason: cough) Qty: 10 0RF hydrocodone-acetaminophen 5-325 mg tablet 1 tab PO BID MDD 10 PRN (Reason: pain) Qty: 6 0RF flecainide 50 mg tablet 50 mg PO BID prednisone 20 mg tablet See Taper PO QDAY Qty: 7 0RF Taper: Prednisone Taper 60 mg DAILY for 1 Day and 0 Hour 40 mg DAILY for 2 Days and 0 Hour 20 mg DAILY for 2 Days and 0 Hour Rx Instructions: 60mg once daily for 1 day 40mg once daily for 2 days 20mg once daily for 2 days diltiazem HCl 120 mg capsule,extended release 12 hr 120 mg PO BID Qty: 30 0RF metoprolol tartrate 50 mg tablet 50 mg PO BID Qty: 60 0RF fluticasone propionate [Flonase Allergy Relief] 50 mcg/actuation spray,suspension 2 spray intranasal QDAY PRN (Reason: allergy symptoms) Qty: 16 0RF Rx Instructions: administer into each nostril azithromycin 250 mg tablet See Rx Instructions .ROUTE .COMPLEX 4 Days Qty: 6 0RF Rx Instructions: For 250 mg dose pack: take 500 mg today (day 1), then 250 mg for 4 days (days 2-5) Referrals: Sofía Aquino PA-C [Primary Care Provider] - In 1 week Problem List Clinical Impression: Pneumonia Patient/Caregiver Discharge Instructions Education Materials: ED Pneumonia (Adult) Print Language: Icelandic Stand Alone Forms: Serena Award Info., Patient Portal Info Letter
[2024-10-12 07:29] LABS: Basophils % (Auto) 0 % (0-2.5); Eosinophils # (Auto) 0.1 Thou/mm3 (0.0-0.5); Eosinophils % (Auto) 0 % (0-10); Hematocrit 37.2 % (36.0-46.0); Hemoglobin 12.7 g/dL (12.0-16.0); Immature Granulocytes % (Auto) 1 % (0-0); Immature Granulocytes Auto 0.08 Thou/mm3 (0.00-0.00); Lymphocytes # (Auto) 1.5 Thou/mm3 (1.0-4.8); Lymphocytes % (Auto) 9 % (10-50); Mean Corpuscular HGB Conc 34.1 g/dl (31.0-37.0); Mean Corpuscular Hemoglobin 31.1 pg (25.0-35.0); Mean Corpuscular Volume 91 fL (80-100); Monocytes # (Auto) 0.9 Thou/mm3 (0.0-0.8); Monocytes % (Auto) 5 % (0-12); Neutrophils # (Auto) 14.5 Thou/mm3 (1.8-7.7); Neutrophils % (Auto) 85 % (37-80); Nucleated Red Blood Cell % 0 /100 WBC (0); Platelet Count 305 Thou/mm3 (140-440); RDW Standard Deviation 50.1 fL (36.4-46.3); Red Blood Count 4.09 Miln/mm3 (4.00-5.20); White Blood Count 17.1 Thou/mm3 (3.6-11.0)
[2024-10-12 07:30] VITALS: PULSE 83
[2024-10-12 07:50] LABS: Partial Thromboplastin Time 33.7 Seconds (22.0-36.0); Prothrombin Time 10.9 Seconds (9.0-12.2)
[2024-10-12 07:53] LABS: B-Type Natriuretic Peptide 187 pg/mL (0-100)
[2024-10-12 07:55] LABS: Alanine Aminotransferase 25 U/L (10-49); Albumin, Serum 4.4 gm/dL (3.5-5.0); Albumin/Globulin Ratio 1.6 (1.2-2.2); Alkaline Phosphatase 123 U/L (46-116); Anion Gap 7 (7-16); Aspartate Amino Transferase 16 U/L (0-34); BUN/Creatinine Ratio 13 Ratio (12-20); Bilirubin,Total 0.4 mg/dL (0.3-1.2); Blood Urea Nitrogen 9 mg/dL (9-23); Calcium 9.6 mg/dL (8.3-10.6); Calcium (Corrected) 9.6 mg/dL (8.5-10.1); Carbon Dioxide 25.6 mMol/L (20.0-31.0); Chloride 110 mMol/L (98-107); Creatinine (Component) 0.7 mg/dL (0.6-1.3); Estimated Creatinine Clearance 80.7 mL/min (>60); Globulin 2.8 gm/dL (2.3-3.5); Glucose 131 mg/dL (74-106); Magnesium 1.7 mg/dL (1.6-2.6); Osmolality,Calculated 285 (275-295); Potassium 3.7 mMol/L (3.4-5.1); Sodium 143 mMol/L (136-145); Total Protein 7.2 gm/dL (5.7-8.2); Troponin I < 0.020 ng/mL (0.0-0.045); eGFR > 60 See Note
[2024-10-12 08:22] LABS: Lactate (Lactic Acid) 0.9 mMol/L (0.4-2.0)
[2024-10-12] MEDS: cefTRIAXone 1,000 MG in SODIUM CHLORIDE 0.9% (P) 50 ML 100 MG IV (08:27)
[2024-10-12] MEDS: LEVALBUTEROL RT 1.25 MG/0.5 ML NEBU INH ×2 (08:31→08:32)
[2024-10-12 08:34] VITALS: PULSE 70; RESP 20; O2SAT 100
[2024-10-12 08:55] LABS: Procalcitonin 0.13 ng/ml (0.0-0.49)
[2024-10-12] MEDS: AZITHROMYCIN INJ 500 MG in SODIUM CHLORIDE 0.9% 250 ML 250 ML 250 MG IV (09:01)
[2024-10-12] MEDS: DEXAMETHASONE SOD PHOS INJ 4 MG/ML VIAL IVP (10:15)
[2024-10-12 10:41] VITALS: BP 112/57; PULSE 69; RESP 19; TEMP 36.6; O2SAT 92
== END 2024-10-12 10:42 | disposition home or self-care (01) ==
PROVIDERS: Nurse Practitioner Primary Care; Emergency Provider Emergency Medicine; PCP Physician Assistant
DX: J44.0 Chronic obstructive pulmonary disease with (acute) lower respiratory infection (principal); J18.9 Pneumonia, unspecified organism; I10 Essential (primary) hypertension; I48.91 Unspecified atrial fibrillation
CPT/HCPCS: 36415; 71045; 80053; 81001; 83605; 83735; 83880; 84145; 84484; 85025; 85610; 85730; 87040; 93005; 94640; 96365; 96367; 96375; 99284; J0456; J0696; J1100; J7050

== ENCOUNTER 2024-11-03 17:48 | Inpatient (IN) | payer MEDICARE, MEDICAID, SELFPAY ==
[2024-11-03] VITALS (9 sets, daily range): BP systolic 107–170; BP diastolic 60–95; PULSE 90–159; RESP 18–24; TEMP 37.1–37.6; O2SAT 90–95; BMI 28.1
--- NOTE | 2024-11-03 18:29 | EKG_ITS ---
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
--- NOTE | 2024-11-03 18:56 | XR_ITS ---
Examination: AP chest single view TECHNIQUE: Sitting AP chest single view Exam date and time: November 03, 2024 1916 hours Comparison October 12, 2024 INDICATIONS: Shortness of breath today. FINDINGS: Mild prominence left ventricle Prominent vascular congestion Early left base pneumonia. Interstitial markings at the lung bases which could represent bronchitis early pulmonary edema IMPRESSION: Left base pneumonia Interstitial disease at the lung bases, differential would include bronchitis and early pulmonary edema, clinical correlation advised
--- NOTE | 2024-11-03 18:57 | PD.EDRME ---
Rapid Medical Screening Exam [facility] Arrival date/time: 11/03/24 17:48 59F with history of COPD, CAD/SMI, and SVT presents to ED with cough, SOB, and heart palps. Chief Complaint: Shortness of Breath/Dyspnea Vital signs: Vital Signs Temperature 98.8 F 11/03/24 18:48 Pulse Rate 92 11/03/24 18:48 Respiratory Rate 24 H 11/03/24 18:48 Blood Pressure 170/75 H 11/03/24 18:48 Pulse Oximetry (%) 93 L 11/03/24 18:48 Oxygen Delivery Method Nasal Cannula 11/03/24 18:48 Oxygen Flow Rate 2 11/03/24 18:48
[2024-11-03] MEDS: BUDESONIDE RT 0.5 MG/2 ML NEBU INH (19:31)
[2024-11-03] MEDS: IPRATROPIUM RT 0.5 MG/ 2.5 ML NEBU INH (19:31)
--- NOTE | 2024-11-03 20:07 | EKG_ITS ---
[facility] Test Date: 2024-11-03 Pat Name: CHRISTY ERVIN Department: Room: - Gender: Female Habilitation Specialist: : 1965 Requested By: Ruben Tucker Order Number: [id number] Reading MD: Ruben Tucker Measurements Intervals [place] Rate: 153 P: [place]: QRS: 69 QRSD: 146 T: 58 QT: 278 QTc: 444 Interpretive Statements UNCERTAIN REGULAR RHYTHM INTRAVENTRICULAR CONDUCTION DELAY [130+ ms QRS DURATION] CRITICAL TEST RESULT Compared to ECG 11/03/2024 18:45:46 Intraventricular conduction delay now present Sinus rhythm no longer present ST (T wave) deviation no longer present /store/S0/[id number].pdf
[2024-11-03 20:21] LABS: Basophils % (Auto) 0 % (0-2.5); Eosinophils % (Auto) 0 % (0-10); Hematocrit 40.3 % (36.0-46.0); Hemoglobin 13.4 g/dL (12.0-16.0); Immature Granulocytes % (Auto) 1 % (0-0); Immature Granulocytes Auto 0.08 Thou/mm3 (0.00-0.00); Lymphocytes # (Auto) 0.8 Thou/mm3 (1.0-4.8); Lymphocytes % (Auto) 6 % (10-50); Mean Corpuscular HGB Conc 33.3 g/dl (31.0-37.0); Mean Corpuscular Hemoglobin 29.6 pg (25.0-35.0); Mean Corpuscular Volume 89 fL (80-100); Monocytes # (Auto) 0.9 Thou/mm3 (0.0-0.8); Monocytes % (Auto) 7 % (0-12); Neutrophils # (Auto) 11.3 Thou/mm3 (1.8-7.7); Neutrophils % (Auto) 86 % (37-80); Nucleated Red Blood Cell % 0 /100 WBC (0); Platelet Count 179 Thou/mm3 (140-440); RDW Standard Deviation 47.3 fL (36.4-46.3); Red Blood Count 4.53 Miln/mm3 (4.00-5.20); White Blood Count 13.2 Thou/mm3 (3.6-11.0)
--- NOTE | 2024-11-03 20:22 | PD.EDSOB ---
ED SOB =RME/HPI General Chief Complaint: Shortness of Breath/Dyspnea Stated Complaint: HEART BEATING FAST WITH HARD TIME BREATHING Arrival date/time: 11/03/24 17:48 RME / HPI RME / HPI Narrative: 11/03/24 17:48 59F with history of COPD, CAD/SMI, and SVT presents to ED with cough, SOB, and heart palps. --------- Dr. Mejia?s Main ED Evaluation: 59yo female with a history of COPD, HTN, SVT presents to the ED for complaints of palpitations and shortness of breath x today. Patient states she's had a productive cough with greenish-yellow phlegm, a sore throat, and chills for the last 2 days. She states she started having palpitations and shortness of breath and was concerned, so she came in for evaluation. Patient denies any chest pain, abdominal pain, sweating or any other associated symptoms. Patient is a former tobacco smoker. Related Data Home Medications ?Medication ?Instructions ?Recorded ?Confirmed flecainide 50 mg tablet 50 mg PO BID 08/17/22 08/17/22 Previous Rx's ?Medication ?Instructions ?Recorded prednisone 20 mg tablet See Taper PO QDAY #7 tabs 02/24/24 diltiazem HCl 120 mg 120 mg PO BID #30 caps 05/16/24 capsule,extended release 12 hr levalbuterol tartrate 45 2 inh inhalation Q4H PRN shortness 06/14/24 mcg/actuation aerosol inhaler of breath or wheezing #15 grams (Xopenex HFA) metoprolol tartrate 50 mg tablet 50 mg PO BID #60 tabs 06/18/24 acetaminophen 500 mg capsule 1,000 mg (2 x 500 mg) PO Q8HR PRN 07/14/24 pain #30 caps cyclobenzaprine 5 mg tablet 5 mg PO TID PRN muscle spasm #30 07/14/24 tabs fluticasone propionate 50 2 spray intranasal QDAY PRN 08/05/24 mcg/actuation nasal allergy symptoms #16 mL spray,suspension (Flonase Allergy Relief) azithromycin 250 mg tablet See Rx Instructions PO .COMPLEX 4 08/12/24 days #6 tabs cyclobenzaprine 5 mg tablet 5 mg PO TID PRN muscle spasm #30 12/25/24 tabs gabapentin 300 mg capsule 300 mg PO TID #30 caps 09/05/24 hydrocodone 5 mg-acetaminophen 325 1 tab PO Q8H PRN pain #14 tabs 09/05/24 mg tablet benzonatate 100 mg capsule 100 mg PO TID PRN cough #10 caps 09/13/24 doxycycline monohydrate 100 mg 100 mg PO BID #10 caps 09/13/24 capsule prednisone 50 mg tablet 50 mg PO QDAY #4 tabs 09/13/24 hydrocodone 5 mg-acetaminophen 325 1 tab PO BID PRN pain #6 tabs 09/26/24 mg tablet cefuroxime axetil 500 mg tablet 500 mg PO BID #14 tabs 10/12/24 Allergies Allergy/AdvReac Type Severity Reaction Status Date / Time ketorolac (From Toradol) Allergy Intermediate Rash Verified 11/03/24 17:49 Review of Systems Review of Systems Systems Reviewed: All systems reviewed, normal except as documented Past Medical History Past Medical History NEUROLOGIC: Negative Neurological Disorders CARDIAC: Positive Cardiac Disorders, Cardiac Arrhythmia, Atrial Fibrillation and Hypertension; Negative Congestive Heart Failure RESPIRATORY: Positive Chronic Obstructive Pulmonary Disease (COPD) and Asthma GASTROINTESTINAL: Negative Gastrointestinal Disorders GENITOURINARY: Negative Genitourinary Disorders or Renal Disease MUSCULOSKELETAL: Positive Arthritis; Negative Musculoskeletal Disorders ENT: Positive Deafness ENDOCRINE: Negative Diabetes Mellitus Type 1 or Diabetes Mellitus Type 2 HEMATOLOGIC: Negative Blood Disorders or Sickle Cell Disease OTHER HISTORY: Positive Cancer and Ovarian Cancer; Negative Blood Transfusions, Blood Transfusion Reaction or Anesthesia Reactions Surgical History SURGICAL: Positive Hysterectomy Social History SMOKING STATUS: Former smoker SECOND HAND EXPOSURE: Yes SUBSTANCE USE: does not use ED Exam Narrative Physical exam: GENERAL APPEARANCE: alert and oriented x 4, well-developed, well-nourished, no acute distress VITALS: All vitals were reviewed and the pulse ox is 91% on 2L/NC, which is hypoxic according to my interpretation. HEENT: Normocephalic, atraumatic; pupils equal, round, reactive to light; EOMI; mucous membranes pink, moist; posterior oropharyngeal injection with exudates, normal palate arch, uvula is midline, no stridor NECK: Supple LUNGS: diminished breath sounds bilaterally; no wheezes, no rales, no rhonchi HEART: Tachycardic in the 150-160s, regular rhythm; normal S1, S2; no murmurs ABDOMEN: non distended; normal BS; soft, no tenderness, no guarding, no rebound; no masses, no organomegaly, no hernia BACK: no CVA tenderness EXTREMITIES: atraumatic; no edema NEUROLOGIC: awake; alert and oriented x4; cranial nerves II-XII grossly intact; no focal sensory or motor deficits PSYCHIATRIC: appropriate mood and affect SKIN: warm, dry, normal color; no rashes Course Course Course Narrative: CXR is ordered for determining the etiology of shortness of breath. 2037: Adenosine 6mg given. Patient converted to sinus tachycardia with a rate in the 100s. Quality Measures none Orders Category Date Time Status Bedside Influenza A&B Antigen Test NOW Care 11/03/24 18:56 Completed EKG (ED ONLY) *Do not use* NOW Care 11/03/24 18:29 Completed EKG (ED ONLY) *Do not use* NOW Care 11/03/24 20:07 Completed EKG (ED ONLY) *Do not use* NOW Care 11/03/24 20:41 Completed IV [Insert IV] NOW Care 11/03/24 20:34 Active EKG (ED Only) Stat Exams 11/03/24 18:29 Draft EKG (ED Only) Stat Exams 11/03/24 20:07 Draft EKG (ED Only) Stat Exams 11/03/24 20:41 Draft XR chest 1V portable Stat Exams 11/03/24 18:56 Completed B-Type Natriuretic Peptide Stat Lab 11/03/24 19:43 Completed CBC Stat Lab 11/03/24 19:43 Completed Comprehensive Metabolic Panel Stat Lab 11/03/24 19:43 Completed Magnesium Stat Lab 11/03/24 19:43 Completed Troponin I Stat Lab 11/03/24 19:43 Completed Acetaminophen Ivpb [Ofirmev Inj] Med 11/03/24 20:43 Discontinued 1,000 mg in 100 ml IV X1 Adenosine 6mg Inj [Adenocard Inj] Med 11/03/24 20:27 Discontinued 12 mg IVP X1 ONE Adenosine 6mg Inj [Adenocard Inj] Med 11/03/24 20:27 Discontinued 6 mg IVP X1 ONE Azithromycin Inj [Zithromax Inj] 500 mg Med 11/03/24 22:03 Active Sodium Chloride 0.9% 250 ml [Ns] 250 ml IV X1 Budesonide Rt [Pulmicort Rt Lauren] Med 11/03/24 18:56 Discontinued 0.5 mg INH X1 ONE Dexamethasone Inj [Decadron Inj] Med 11/03/24 20:43 Discontinued 10 mg PO X1 ONE Ipratropium Yale Rt Lauren [Atrovent Rt Lauren] Med 11/03/24 18:56 Discontinued 0.5 mg INH X1 ONE Oseltamivir [Tamiflu] Med 11/03/24 20:43 Discontinued 75 mg PO X1 ONE cefTRIAXone [Rocephin] 1,000 mg Med 11/03/24 22:02 Active SODIUM CHLORIDE 0.9% (Popper) [Ns 0.9% (P)] 50 ml IV X1 Oxygen Delivery NOW RT 11/03/24 20:44 Active Vital Signs Vital signs: Vital Signs Temperature 98.8 F 11/03/24 18:48 Pulse Rate 92 11/03/24 18:48 Respiratory Rate 24 H 11/03/24 18:48 Blood Pressure 170/75 H 11/03/24 18:48 Pulse Oximetry (%) 93 L 11/03/24 18:48 Oxygen Delivery Method Nasal Cannula 11/03/24 18:48 Oxygen Flow Rate 2 11/03/24 18:48 Shortness of Breath / Dyspnea MDM Narrative MDM Narrative:: Scribe Attestation: 11/03/24 Caren Lopez am scribing for and in the presence of Dr. Mejia. Patient data External records reviewed:: [facility] previous records (Per chart review, patient was seen here on 10/12/24 for pneumonia.) Clinical information provided by:: patient Social determinants that could affect healthcare access:: substance use (former tobacco smoker) Patient has the following chronic illnesses:: COPD, HTN, aFib How is presenting disease/condition affected by chronic disease/condition?: uneffected by Evaluation data The following diagnostics were reviewed and interpreted by me:: lab results, radiology exam(s) and EKG tracing(s) Lab and/or radiology exams considered but not ordered:: none Interpretation Summary: Bedside Influenza A is positive, WBC count is elevated at 13.2, CMP is normal, BNP is 199, according to my interpretation. EKG done at 1844, NSR, rate of 94, normal axis, no ectopy, generalized ST abnormalities, no STEMI, according to my interpretation. Repeat EKG done at 2009, atrial flutter, rate of 153, normal axis, generalized ST abnormalities, according to my interpretation. Repeat EKG done at 2044, NSR, rate of 97, normal axis, no ectopy, no acute ischemia, according to my interpretation. ----- [facility] Report Signed Patient: CHRISTY ERVIN. Record#: [id number] Birthdate: 1965 Age/Sex: 59 / F Location: [facility] Attending Dr: Ordering Physician: Cuauhtemoc Alvarez PA-C Date of Service: 11/03/24 Procedure(s): XR chest 1V portable Accession Number(s): [id number] cc: Terrell Padgett MD; Cuauhtemoc Alvarez PA-C~ Examination: AP chest single view TECHNIQUE: Sitting AP chest single view Exam date and time: November 03, 2024 1916 hours Comparison October 12, 2024 INDICATIONS: Shortness of breath today. FINDINGS: Mild prominence left ventricle Prominent vascular congestion Early left base pneumonia. Interstitial markings at the lung bases which could represent bronchitis early pulmonary edema IMPRESSION: Left base pneumonia Interstitial disease at the lung bases, differential would include bronchitis and early pulmonary edema, clinical correlation advised Dictated By: Terrell Padgett MD Signed By: <Electronically signed by Terrell Padgett MD in OV> 11/03/24 193 Medications / Prescriptions Medications or Prescriptions considered but not ordered:: none Medication administrations:: Medication Administration History Ceftriaxone Sodium 1,000 mg/ (Sodium Chloride) 50 mls @ 100 mls/hr IV X1 ONE Stop: 11/03/24 22:31 Azithromycin 500 mg/ Sodium (Chloride) 250 mls @ 250 mls/hr IV X1 ONE Stop: 11/03/24 23:02 Discontinued Medications Adenosine (Adenosine Inj 3 Mg/Ml Vial) 6 mg IVP X1 ONE Stop: 11/03/24 20:28 Last Admin: 11/03/24 20:39 Dose: 6 mg Documented By: CVL Adenosine (Adenosine Inj 3 Mg/Ml Vial) 12 mg IVP X1 ONE Stop: 11/03/24 20:28 Last Admin: 11/03/24 20:52 Dose: Not Given Documented By: CVL Non-Admin Reason: Cancelled by Provider Budesonide (Budesonide Rt 0.5 Mg/2 Ml Nebu) 0.5 mg INH X1 ONE Stop: 11/03/24 18:57 Last Admin: 11/03/24 19:31 Dose: 0.5 mg Documented By: Dexamethasone Sodium Phosphate (Dexamethasone Sod Phos Inj 10 Mg/Ml Vial) 10 mg PO X1 ONE Stop: 11/03/24 20:44 Last Admin: 11/03/24 21:02 Dose: 10 mg Documented By: CVL Acetaminophen (Ofirmev Inj) 1,000 mg in 100 mls @ 250 mls/hr IV X1 ONE Stop: 11/03/24 21:06 Last Infusion: 11/03/24 21:23 Dose: Infused Documented By: Admin: 11/03/24 21:02 Dose: 250 mls/hr Documented By: CVL Ipratropium Yale (Ipratropium Rt 0.5 Mg/ 2.5 Ml Nebu) 0.5 mg INH X1 ONE Stop: 11/03/24 18:57 Last Admin: 11/03/24 19:31 Dose: 0.5 mg Documented By: Oseltamivir Phosphate (Oseltamivir 75 Mg Capsule) 75 mg PO X1 ONE Stop: 11/03/24 20:44 Last Admin: 11/03/24 21:01 Dose: 75 mg Documented By: CVL see above Consultations Consultation(s) initiated? (list below): Yes Consultation #1 (Physician, Specialty, Details): Discussed case with [Dr. Cunningham, attending Dr. Costa] from Hospitalist service regarding admission. Discussed patients ED course, exam findings, labs, and radiology results. The Hospitalist [agrees] to accept the patient for admission. Time: 20:04 Diagnosis Shortness of Breath Differential Diagnosis: community acquired pneumonia and other (COPD exacerbation, Influenza, Strep throat, empyema, sepsis, septic shock) Most likely diagnosis given after review of the tests above:: see below Admission Indicated Admission indicated?: indicated Admission Request Was there a request for admission?: Yes Admission Attestation Admission request attestation: Discussed case with [] from Hospitalist service regarding admission. Discussed patients ED course, exam findings, labs, and radiology results. The Hospitalist [agrees,declines] to accept the patient for admission. Disposition Plan Disposition Plan: Admit Critical Care Time Critical Care Time Critical Care Time: Yes Total Critical Care Time (min.): 45 Attestation: The high probability of sudden, clinically significant deterioration in the patient?s condition required the highest level of my preparedness to intervene urgently. The services I provided to this patient were to treat and/or prevent clinically significant deterioration. Services included the following: chart data review, reviewing nursing notes and/or old charts, documentation time, freight traffic consultant collaboration regarding findings and treatment options, medication orders and management, direct patient care, vital sign assessments and ordering, interpreting and reviewing diagnostic studies and lab tests. Aggregate critical care time includes only time during which I was engaged in work directly related to the patient?s care, as described above, whether at bedside or elsewhere in the Emergency Department. It did not include time spent performing other reported procedures or the services of residents, students, nurses or physician assistants. Discharge Plan Plan Patient Disposition: Admit Acute Care w/in Hospital Prescriptions/Referrals Prescriptions/Med Rec: No Action levalbuterol tartrate [Xopenex HFA] 45 mcg/actuation HFA aerosol inhaler 2 inh inhalation Q4H PRN (Reason: shortness of breath or wheezing) Qty: 15 0RF acetaminophen 500 mg capsule 1,000 mg PO Q8HR PRN (Reason: pain) Qty: 30 0RF cyclobenzaprine 5 mg tablet 5 mg PO TID PRN (Reason: muscle spasm) Qty: 30 0RF cyclobenzaprine 5 mg tablet 5 mg PO TID PRN (Reason: muscle spasm) Qty: 30 0RF gabapentin 300 mg capsule 300 mg PO TID Qty: 30 0RF hydrocodone-acetaminophen 5-325 mg tablet 1 tab PO Q8H MDD 3 PRN (Reason: pain) Qty: 14 0RF doxycycline monohydrate 100 mg capsule 100 mg PO BID Qty: 10 0RF prednisone 50 mg tablet 50 mg PO QDAY Qty: 4 0RF benzonatate 100 mg capsule 100 mg PO TID PRN (Reason: cough) Qty: 10 0RF hydrocodone-acetaminophen 5-325 mg tablet 1 tab PO BID MDD 10 PRN (Reason: pain) Qty: 6 0RF flecainide 50 mg tablet 50 mg PO BID prednisone 20 mg tablet See Taper PO QDAY Qty: 7 0RF Taper: Prednisone Taper 60 mg DAILY for 1 Day and 0 Hour 40 mg DAILY for 2 Days and 0 Hour 20 mg DAILY for 2 Days and 0 Hour Rx Instructions: 60mg once daily for 1 day 40mg once daily for 2 days 20mg once daily for 2 days diltiazem HCl 120 mg capsule,extended release 12 hr 120 mg PO BID Qty: 30 0RF metoprolol tartrate 50 mg tablet 50 mg PO BID Qty: 60 0RF fluticasone propionate [Flonase Allergy Relief] 50 mcg/actuation spray,suspension 2 spray intranasal QDAY PRN (Reason: allergy symptoms) Qty: 16 0RF Rx Instructions: administer into each nostril azithromycin 250 mg tablet See Rx Instructions .ROUTE .COMPLEX 4 Days Qty: 6 0RF Rx Instructions: For 250 mg dose pack: take 500 mg today (day 1), then 250 mg for 4 days (days 2-5) cefuroxime axetil 500 mg tablet 500 mg PO BID Qty: 14 0RF Referrals: No Primary/Family,Physician [Primary Care Provider] - In 1 week Problem List Clinical Impression: Pneumonia, SVT (supraventricular tachycardia), Influenza, Hypoxia Patient/Caregiver Discharge Instructions Print Language: Citizen Of [place] Stand Alone Forms: Serena Award Info., Patient Portal Info Letter
--- NOTE | 2024-11-03 20:25 | PC.NURSE ---
PT BROUGHT TO ROOM FROM RME ROOM BECAUSE PT HAVING FAST HR, MONITOR APPLIED , PT IN SVT , DR. PINEDA NOTIFIED , SEEN PT AND NEW ORDER GIVEN AND CARRIED OUT.
--- NOTE | 2024-11-03 20:25 | PC.NURSE ---
HOSPITALIST AT ROOM TO SEE PT.
[2024-11-03 20:32] LABS: B-Type Natriuretic Peptide 199 pg/mL (0-100)
[2024-11-03 20:34] LABS: Alanine Aminotransferase 17 U/L (10-49); Albumin, Serum 4.7 gm/dL (3.5-5.0); Albumin/Globulin Ratio 1.8 (1.2-2.2); Alkaline Phosphatase 86 U/L (46-116); Anion Gap 8 (7-16); Aspartate Amino Transferase 18 U/L (0-34); BUN/Creatinine Ratio 18 Ratio (12-20); Bilirubin,Total 0.4 mg/dL (0.3-1.2); Blood Urea Nitrogen 11 mg/dL (9-23); Calcium 9.7 mg/dL (8.3-10.6); Calcium (Corrected) 9.7 mg/dL (8.5-10.1); Carbon Dioxide 29.2 mMol/L (20.0-31.0); Chloride 103 mMol/L (98-107); Creatinine (Component) 0.6 mg/dL (0.6-1.3); Estimated Creatinine Clearance 92.4 mL/min (>60); Globulin 2.6 gm/dL (2.3-3.5); Glucose 105 mg/dL (74-106); Osmolality,Calculated 278 (275-295); Potassium 3.9 mMol/L (3.4-5.1); Sodium 140 mMol/L (136-145); Total Protein 7.3 gm/dL (5.7-8.2); Troponin I < 0.020 ng/mL (0.0-0.045); eGFR > 60 See Note
[2024-11-03] MEDS: ADENOSINE INJ 3 MG/ML VIAL 6 MG IVP (20:39)
--- NOTE | 2024-11-03 20:40 | PC.RT ---
RT on stand by while pt given adenosine, hr at [id number], RR24, spo2 91%, post hr at 2042 101, spo2 92% on 2L pt uses 2l at home.
--- NOTE | 2024-11-03 20:41 | EKG_ITS ---
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
[2024-11-03] MEDS: OSELTAMIVIR 75 MG CAPSULE PO (21:01)
[2024-11-03] MEDS: ACETAMINOPHEN IVPB 1,000 MG/100 ML VIAL 250 MG IV (21:02)
[2024-11-03] MEDS: DEXAMETHASONE SOD PHOS INJ 10 MG/ML VIAL PO (21:02)
[2024-11-03 21:43] LABS: Magnesium 1.6 mg/dL (1.6-2.6)
[2024-11-03] MEDS: cefTRIAXone 1,000 MG in SODIUM CHLORIDE 0.9% (Popper) 50 ML 100 MG IV (22:42)
[2024-11-03] MEDS: AZITHROMYCIN INJ 500 MG in SODIUM CHLORIDE 0.9% 250 ML 250 ML 250 MG IV (23:31)
[2024-11-04] VITALS (21 sets, daily range): BP systolic 97–131; BP diastolic 50–77; PULSE 72–166; RESP 14–92; TEMP 36.2–37.1; O2SAT 87–95; BMI 28.1
--- NOTE | 2024-11-04 00:13 | ESHP_ITS ---
<Statement entered by Marilee Costa MD - 11/04/24 04:14> 59-year-old female with history of COPD on 2 L supplemental oxygen, hypertension and SVT on flecainide and history of ovarian cancer who presented to the ER with palpitation and shortness of breath. Patient states that she was at home when she noticed her heart started beating too fast similar to previous events of SVT and subsequently prompted an ER visit. In the ER, patient noted to have a heart rate in the 150s and subsequently received adenosine with improvement in heart rate and internal medicine was consulted for admission. In the ER, patient also noted to have acute hypoxic respiratory failure related to influenza pneumonia and COPD exacerbation. As of now, plan to admit the patient, start patient on prednisone, Tamiflu, Rocephin and azithromycin. As for SVT, plan to monitor the patient closely will obtain echocardiogram and consult cardiology in the morning.I reviewed above note and agree with findings and plans. I have also personally examined the patient with medicine team and went over assessment and plan with medical team including fall internship and resident physician. Documentation for date of: 11/04/24 HPI History of Present Illness History of present illness: HPI is limited as patient is deaf and is able to partly mouth read. 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 Patient notes that she is on 2 L home oxygen at home, and started to notice that her heart started to race. She also notes that she does not measure her heart rate, however knows if she is going into SVT rhythm as she has had bouts of this before. She notes that someone may be sick at her house, however no one has the flu at her house. She says she takes flecainide and another medicine for SVT and she sees Dr. Edwards for cardiology. She says she has extensive smoking history and use oxygen 24/7 and gets short of breath frequently. She denies any recent travel. She denies any chest pain however says that her heart was racing. She also says she has some cough and sore throat in addition to fever. She has no other complaints this time. ED course: Patient arrived to the ED with a temperature of 90.8, heart rate of 92, respiratory of 24, blood pressure 170/75, saturating 93% on 2 L nasal cannula. She was worked up was found to have a sodium of 140, potassium of 3.9, magnesium 1.6, bicarb of 29, BUN/creatinine 11 and 0.6 respectively, glucose of 105, white count of 13.2, hemoglobin 13.4, BNP of 199, troponin negative x 1. X-ray showed left base pneumonia. EKG initially showed rate of 93, however another EKG was done after patient started to feel heart racing and this was done after patient was given breathing treatment and heart rate was in the 150s. Patient was given adenosine 6 mg which improved patient's heart rate with repeat EKG showed heart rate in the 90s. He also given Atrovent x 1 budesonide x 1, Rocephin x 1 azithromycin x 1 Tylenol x 1, Decadron 10 mg, and was given Tamiflu 75 mg after she tested positive for influenza A. Past medical history: As above Social history: Hysterectomy Allergies: Toradol Medicines: Flecainide, possibly diltiazem, Tessalon Perles, Flonase, Xopenex Family history: Family history of COPD although parents were smokers, dad of a heart attack. Social history: Lives in [place] with boyfriend, grew up in [place] lived in [place] at some point and worked in the [employer]. Smoking history includes about 10 cigarettes for about 20 years, quit about 6 months ago. Has never been a heavy drinker. Last time used meth about 2 years ago. Review of Systems Review of Systems Narrative Review of Systems: Constitutional: Positive fever, no chills, fatigue, weakness, weight loss HEENT: No eye pain, vision loss, ear pain, hearing loss, dysphagia, Cardiovascular: No chest pain, positive palpitations, edema, pain with walking Respiratory: Positive cough, shortness of breath, no wheezing GI: No NVD, abdominal pain, constipation, blood in stool, loss of appetite, heartburn Extremities: No presence of pitting edema MSK: No back pain, joint pain, joint swelling Neuro: No dizziness, numbness, weakness, headaches, seizures, tremors Psych: No anxiety, depression Exam Vital Signs Temp Pulse Resp BP Pulse Ox O2 Del Method O2 Flow Rate 98.7 F 83 20 110/54 L 94 L Nasal Cannula 2 11/04/24 00:09 11/04/24 00:09 11/04/24 00:09 11/04/24 00:09 11/04/24 00:09 11/04/24 00:09 11/04/24 00:09 Narrative Exam General: AAOx3, NAD, deaf, appears to be short, can lip read, looks older than she is HEENT: Moist mucous membranes, conjunctiva clear, EOMI, PERRLA, not the best dentition Cardiovascular: S1, S2, radial pulses +2 bilat, RRR Pulmonary: CTAB bilat no cough, no wheezing GI: No tenderness to light or deep palpitation, no guarding, rigidity, rebound tenderness or distension Extremities: Trace edema in lower extremities bilaterally, dorsalis pedis pulses +2 bilaterally Neuro: AAOx3, no focal motor or sensory deficits in the UE or LE bilat Psych: Cooperative Results: Labs 11/03/24 19:43 11/03/24 19:43 Labs: Short CBC 11/03/24 Range/Units 19:43 WBC 13.2 H (3.6-11.0) Thou/mm3 Hgb 13.4 (12.0-16.0) g/dL Hct 40.3 (36.0-46.0) % Plt Count 179 D (140-440) Thou/mm3 BMP 11/03/24 19:43 Sodium 140 Potassium 3.9 Chloride 103 Carbon Dioxide 29.2 BUN 11 Creatinine 0.6 Glucose 105 Calcium 9.7 Cardiac Enzymes 11/03/24 Range/Units 19:43 Troponin I < 0.020 (0.0-0.045) ng/mL Liver Function 11/03/24 Range/Units 19:43 Total Bilirubin 0.4 (0.3-1.2) mg/dL AST 18 (0-34) U/L ALT 17 (10-49) U/L Alkaline Phosphatase 86 (46-116) U/L Albumin 4.7 (3.5-5.0) gm/dL Quality Measures Quality Measures none Medications Home Medications and Allergies Home Medications ?Medication ?Instructions ?Recorded ?Confirmed ?Type flecainide 50 mg tablet 50 mg PO BID 08/17/22 History Allergies Allergy/AdvReac Type Severity Reaction Status Date / Time ketorolac (From Toradol) Allergy Intermediate Rash Verified 11/03/24 17:49 Visit Medications Acetaminophen (Acetaminophen 325 Mg Tablet) 650 mg PO Q6H PRN PRN Reason: Fever >100 or pain 1-3 Stop: 12/04/24 00:02 Enoxaparin Sodium (Enoxaparin Sod Inj 40 Mg/0.4 Ml Syringe) 40 mg SC QDAY COUNTS INCLUDE 234 BEDS AT THE [facility] Stop: 11/18/24 08:59 Ceftriaxone Sodium 1,000 mg/ (Sodium Chloride) 50 mls @ 100 mls/hr IV QDAY YAKELIN Stop: 11/11/24 08:59 Azithromycin 250 mg/ Sodium (Chloride) 250 mls @ 250 mls/hr IV QDAY COUNTS INCLUDE 234 BEDS AT THE [facility] Stop: 11/11/24 08:59 Magnesium Sulfate (Magnesium Sulfate Ivpb) 2 gm in 50 mls @ 25 mls/hr IV X1 ONE Stop: 11/04/24 02:08 Ipratropium [place] (Ipratropium Rt 0.5 Mg/ 2.5 Ml Nebu) mg INH Q6HRRT YAKELIN Stop: 12/04/24 00:59 Levalbuterol HCl (Levalbuterol Rt 1.25 Mg/0.5 Ml Nebu) 1.25 mg INH Q6HRRT YAKELIN Stop: 12/04/24 00:59 Oseltamivir Phosphate (Oseltamivir 75 Mg Capsule) 75 mg PO BID YAKELIN Stop: 11/11/24 08:59 Prednisone (Prednisone 20 Mg Tablet) 40 mg PO QDAY YAKELIN Stop: 12/04/24 08:59 Sodium Chloride (Sodium Chloride Rt Lauren 0.9% 3 Ml Nebu) 3 ml INH PRN PRN PRN Reason: SOLN Stop: 12/04/24 00:02 Discontinued Medications Adenosine (Adenosine Inj 3 Mg/Ml Vial) 6 mg IVP X1 ONE Stop: 11/03/24 20:28 Last Admin: 11/03/24 20:39 Dose: 6 mg Adenosine (Adenosine Inj 3 Mg/Ml Vial) 12 mg IVP X1 ONE Stop: 11/03/24 20:28 Last Admin: 11/03/24 20:52 Dose: Not Given Budesonide (Budesonide Rt 0.5 Mg/2 Ml Nebu) 0.5 mg INH X1 ONE Stop: 11/03/24 18:57 Last Admin: 11/03/24 19:31 Dose: 0.5 mg Dexamethasone Sodium Phosphate (Dexamethasone Sod Phos Inj 10 Mg/Ml Vial) 10 mg PO X1 ONE Stop: 11/03/24 20:44 Last Admin: 11/03/24 21:02 Dose: 10 mg Acetaminophen (Ofirmev Inj) 1,000 mg in 100 mls @ 250 mls/hr IV X1 ONE Stop: 11/03/24 21:06 Last Infusion: 11/03/24 21:23 Dose: Infused Ceftriaxone Sodium 1,000 mg/ (Sodium Chloride) 50 mls @ 100 mls/hr IV X1 ONE Stop: 11/03/24 22:31 Last Infusion: 11/03/24 23:27 Dose: Infused Azithromycin 500 mg/ Sodium (Chloride) 250 mls @ 250 mls/hr IV X1 ONE Stop: 11/03/24 23:02 Last Admin: 11/03/24 23:31 Dose: 250 mls/hr Ipratropium [place] (Ipratropium Rt 0.5 Mg/ 2.5 Ml Nebu) 0.5 mg INH X1 ONE Stop: 11/03/24 18:57 Last Admin: 11/03/24 19:31 Dose: 0.5 mg Oseltamivir Phosphate (Oseltamivir 75 Mg Capsule) 75 mg PO X1 ONE Stop: 11/03/24 20:44 Last Admin: 11/03/24 21:01 Dose: 75 mg Potassium Chloride (Potassium Chloride 20 Meq Tabcr) 20 meq PO X1 ONE Stop: 11/04/24 00:08 Assessment & Plan Plan Assessment Corinna is a 59 y/o female with PMHx with past medical history of COPD (on 2 L home oxygen), hypertension, SVT (apparently on flecainide, 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 #Acute on chronic hypoxic respiratory failure, secondary to #Influenza pneumonia #Acute on chronic COPD exacerbation Considering patient having oxygen saturation below 92 with home oxygen, and also patient having tachypnea rate of over 24, with GALILEO criteria patient appears to be in moderate exacerbation Patient was given Decadron 10 mg, Rocephin, azithromycin, budesonide, Atrovent in ER Patient has multiple factors for respiratory failure including COPD extubation and influenza pneumonia Patient does not smoke anymore COVID negative Plan: ? Tamiflu 75 mg twice daily ? Prednisone 40 mg daily for 4 more days ? Oxygen saturation goals 88 to 92%, wean down as tolerated ? Levalbuterol 1.25 every 6 hours ? Atrovent 2.5 every 6 hours ? Chest physio ? Follow-up MRSA screen ? Rocephin 1 g daily IV ? Tessalon Perles ? Azithromycin 250 mg daily IV ? Follow-up blood cultures ? Follow-up Legionella and cocci #History of hypertension #History of SVT Patient was given adenosine 6 mg for SVT in ED heart rate was in the 150s Patient says she takes flecainide but is unsure of the other medicine No Echo, however chest x-ray does not appear to show cardiomegaly Plan: ? Awaiting med rec to resume home medicines ? Keep magnesium and potassium above 2 and 4 respectively to avoid any cardiac arrhythmias ? Consider echo at some point and cardiac consult, no record of echo seen #Health Maintenance Disposition: Telemetry for history of SVT DVT prophylaxis: Lovenox GI prophylaxis: None indicated at this time Diet: Cardiac CODE STATUS: Full Patient seen and care discussed with my attending physician, Dr. Igor Mtz, PGY-1
[2024-11-04 00:21] LABS: Lactate (Lactic Acid) 1.5 mMol/L (0.4-2.0)
[2024-11-04] MEDS: POTASSIUM CHLORIDE 20 mEq TABCR PO (00:26)
[2024-11-04 00:51] LABS: Procalcitonin 0.11 ng/ml (0.0-0.49)
[2024-11-04] MEDS: Magnesium Sulfate 2 GM Ivpb 2 GM/50 ML BAG IV ×2 (00:51→04:35)
[2024-11-04] MEDS: LEVALBUTEROL RT 1.25 MG/0.5 ML NEBU INH ×4 (01:20→18:51)
--- NOTE | 2024-11-04 01:56 | PC.NURSE ---
REPORT GIVEN TO NICKY RANDHAWA AT TELE.
[2024-11-04] MEDS: ACETAMINOPHEN 325 MG TABLET 650 MG PO ×3 (03:14→20:32)
--- NOTE | 2024-11-04 03:53 | EKG_ITS ---
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
--- NOTE | 2024-11-04 04:00 | PC.NURSE ---
cardizem given before verified by pharmacy during [employer] made 2 attempts to call pharmacy unable to get through
[2024-11-04] MEDS: DILTIAZEM INJ 5 MG/ML VIAL 5 ML 10 MG IV (04:07)
[2024-11-04] MEDS: ADENOSINE INJ 3 MG/ML VIAL 6 MG IVP (04:18)
--- NOTE | 2024-11-04 04:20 | EKG_ITS ---
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
--- NOTE | 2024-11-04 04:49 | PC.RT ---
RT responded to Rapid Response at 03:50, pt on 5L nc with hr 152, spo2 88-90%, RT dc from Rapid at 0432.
--- NOTE | 2024-11-04 05:20 | PD.RESEVENT ---
Documentation for date of: 11/04/24 Event Note Event Note: At around 4:00AM, pt began to feel her heart racing. Rapid response was called and pt's HR was in 160s, saturating 91%. EKG was taken in which showed SVT rate 160s. Vagal maneuvers were attempted which did not help patient's HR. Decision was made to give patient Cardizem 10 mg, which did not improve pt's heart rate (went down to 140s) and BP was 90s SBP. Decision was made to give Adenosine 6 mg in which it improved pt's heart rate to 90s. Pt began to improve afterwards. Patient seen and care discussed with my attending physician, Dr. Igor Mtz, PGY-1 Attending attestation: 59-year-old female with history of COPD on 2 L supplemental oxygen, hypertension and SVT on flecainide and history of ovarian cancer who presented to the ER with palpitation and shortness of breath. Patient states that she was at home when she noticed her heart started beating too fast similar to previous events of SVT and subsequently prompted an ER visit. In the ER, patient noted to have a heart rate in the 150s and subsequently received adenosine with improvement in heart rate and internal medicine was consulted for admission. In the ER, patient also noted to have acute hypoxic respiratory failure related to influenza pneumonia and COPD exacerbation. As of now, plan to admit the patient, start patient on prednisone, Tamiflu, Rocephin and azithromycin. Shortly after arriving in 263, patient had rapid response for HR as high as 160s and subsequently given IV dilt with no improvement and decision was to give adenosine. Shortly afterwards, patient HR dropped to 90s. Will plan to restart home flecanide and consult cardiology.
[2024-11-04 05:56] LABS: Basophils % (Auto) 0 % (0-2.5); Eosinophils % (Auto) 0 % (0-10); Hematocrit 37.1 % (36.0-46.0); Hemoglobin 12.2 g/dL (12.0-16.0); Immature Granulocytes % (Auto) 1 % (0-0); Immature Granulocytes Auto 0.05 Thou/mm3 (0.00-0.00); Lymphocytes # (Auto) 0.3 Thou/mm3 (1.0-4.8); Lymphocytes % (Auto) 3 % (10-50); Mean Corpuscular HGB Conc 32.9 g/dl (31.0-37.0); Mean Corpuscular Hemoglobin 29.3 pg (25.0-35.0); Mean Corpuscular Volume 89 fL (80-100); Monocytes # (Auto) 0.1 Thou/mm3 (0.0-0.8); Monocytes % (Auto) 1 % (0-12); Neutrophils # (Auto) 9.3 Thou/mm3 (1.8-7.7); Neutrophils % (Auto) 95 % (37-80); Nucleated Red Blood Cell % 0 /100 WBC (0); Platelet Count 178 Thou/mm3 (140-440); RDW Standard Deviation 47.8 fL (36.4-46.3); Red Blood Count 4.16 Miln/mm3 (4.00-5.20); White Blood Count 9.7 Thou/mm3 (3.6-11.0)
[2024-11-04] MEDS: FLECAINIDE ACET 50 MG TABLET 100 MG PO ×2 (06:15→20:14)
[2024-11-04] MEDS: BENZONATATE 100 MG CAPSULE PO (06:25)
[2024-11-04 06:26] LABS: Alanine Aminotransferase 16 U/L (10-49); Albumin, Serum 4.2 gm/dL (3.5-5.0); Albumin/Globulin Ratio 1.8 (1.2-2.2); Alkaline Phosphatase 81 U/L (46-116); Anion Gap 9 (7-16); Aspartate Amino Transferase 20 U/L (0-34); BUN/Creatinine Ratio 17 Ratio (12-20); Bilirubin,Total 0.3 mg/dL (0.3-1.2); Blood Urea Nitrogen 12 mg/dL (9-23); Carbon Dioxide 27.4 mMol/L (20.0-31.0); Cardiac Risk Estimate 2.4 RATIO (3.7-5.6); Chloride 104 mMol/L (98-107); Cholesterol 136 mg/dL (132-200); Creatinine (Component) 0.7 mg/dL (0.6-1.3); Estimated Creatinine Clearance 79.2 mL/min (>60); Globulin 2.4 gm/dL (2.3-3.5); Glucose 230 mg/dL (74-106); HDL Cholesterol 57 mg/dL (40-60); LDL Cholesterol,Calculated 70 mg/dL (0-130); Magnesium 2.6 mg/dL (1.6-2.6); Osmolality,Calculated 286 (275-295); Potassium 3.7 mMol/L (3.4-5.1); Sodium 140 mMol/L (136-145); Thyroid Stimulating Hormone 0.36 uIU/mL (0.55-4.78); Total Protein 6.6 gm/dL (5.7-8.2); Triglycerides 47 mg/dL (30-150); eGFR > 60 See Note
[2024-11-04] MEDS: IPRATROPIUM RT 0.5 MG/ 2.5 ML NEBU INH ×3 (06:33→18:50)
[2024-11-04 08:02] LABS: Free T4 (Free Thyroxine) 1.26 ng/dL (0.89-1.76)
[2024-11-04] MEDS: POTASSIUM CHLORIDE 20 mEq TABCR 40 MEQ PO (08:28)
[2024-11-04] MEDS: ENOXAPARIN SOD INJ 40 MG/0.4 ML SYRINGE SC (08:28)
[2024-11-04] MEDS: PANTOPRAZOLE 40 MG TABLET PO (08:28)
[2024-11-04] MEDS: predniSONE 20 MG TABLET 40 MG PO (08:28)
[2024-11-04] MEDS: OSELTAMIVIR 75 MG CAPSULE PO ×2 (08:28→20:07)
--- NOTE | 2024-11-04 09:02 | ESCONSULT_ITS ---
<Statement entered by Musa Green MD - 11/07/24 16:52> I examined the patient with DR KONG PGY 2, agree with assessment and recommendations, has paroxysmal AVNRT . cont Flecainide 100 BID and Diltiazem will follow may need ablation as OP HPI Data of Consult Requesting Physician: Marilee Costa MD Admitting Provider: Marilee Costa MD Attending Provider: Marilee Costa MD Primary Care Provider: Physician No Primary/Family Consult Narrative History of present illness: Patient is a 59-year-old female, hard of hearing, with past medical history of COPD on 2L O2, hypertension, SVT on flecainide, osteoarthritis who presented to ER complaining of cough shortness of breath and heart palpitations. Patient stated that she came to the ER as she was getting short of breath and feeling her heart beating too fast and pounding on her chest as well as some chest discomfort. An EKG was done and she was prescribed breathing treatments but before she could get the breathing treatment/nebulization, narrow complex tachycardia was diagnosed and she was given adenosine which slowed down her heart. Patient reported that she had been having a sore throat and chills for the last 2 days also cough productive of greenish-yellow sputum. Endorsed mild chest discomfort and shortness of breath during episode of tachycardia, but denied having any current chest discomfort. Patient is usually on 2 L oxygen at home, currently saturating 90% on 5 L NC O2. Reported she is feeling tight in her chest. ER course: In the ER patient was found to have heart rate in the 150s, EKG showed narrow complex tachycardia, and was given adenosine which terminated arrhythmia, patient was admitted to medical floor, early in the morning patient had another run of narrow complex tachycardia, heart rate in the 150s was given diltiazem 10 mg x 1 which failed to terminate the arrhythmia, was given adenosine 6 mg which terminated the arrhythmia, heart rate in the 90s. Blood pressure stable. Patient home medication flecainide was resumed, cardiology was consulted for evaluation and management. The patient also reported some chest discomfort Labs on admission pertinent for leukocytosis, unremarkable CBC this morning. CHEM panel shows potassium 3.7, normal BUN/creatinine, glucose 230, lactic acid 1.5, magnesium 2.6, TSH 0.36 and free T4 1.26. positive cocci IgM serology . Chest x-ray shows left base pneumonia, interstitial disease at lung bases EKG shows narrow complex tachycardia, slight right axis deviation, possible retrograde P wave, interventricular conduction delay. Possible AVRT. Post adenosine EKG shows normal sinus rhythm. Past medical and surgical history: History of hysterectomy, history of ovarian cancer, history of hypertension, COPD, SVT. Social history: Former smoker, denies substance abuse Home medications: Diltiazem 120 mg twice daily, flecainide 100 mg twice daily, Ellipta inhaler, losartan 50 mg daily. cc:: cc: Marilee Costa MD Review of Systems Review of Systems Systems Reviewed: All systems reviewed, normal except as documented Past Medical History Past Medical History NEUROLOGIC: Negative Neurological Disorders CARDIAC: Positive Cardiac Disorders, Cardiac Arrhythmia, Atrial Fibrillation and Hypertension; Negative Congestive Heart Failure RESPIRATORY: Positive Chronic Obstructive Pulmonary Disease (COPD) and Asthma GASTROINTESTINAL: Negative Gastrointestinal Disorders GENITOURINARY: Negative Genitourinary Disorders or Renal Disease MUSCULOSKELETAL: Positive Arthritis; Negative Musculoskeletal Disorders ENT: Positive Deafness ENDOCRINE: Negative Diabetes Mellitus Type 1 or Diabetes Mellitus Type 2 HEMATOLOGIC: Negative Blood Disorders or Sickle Cell Disease OTHER HISTORY: Positive Cancer and Ovarian Cancer; Negative Blood Transfusions, Blood Transfusion Reaction or Anesthesia Reactions Surgical History SURGICAL: Positive Hysterectomy Social History SMOKING STATUS: Former smoker SECOND HAND EXPOSURE: Yes SUBSTANCE USE: does not use Exam Vital Signs Temp Pulse Resp BP Pulse Ox O2 Del Method O2 Flow Rate 97.2 F 87 26 H 113/60 88 L Nasal Cannula 5 11/04/24 07:27 11/04/24 07:51 11/04/24 07:27 11/04/24 07:27 11/04/24 07:27 11/04/24 04:00 11/04/24 07:27 Narrative Exam General: AOx3, cooperative but anxious, very hard of hearing. Currently seen on 5 L nasal cannula O2, sitting upright at the edge of the bed. Skin: Intact, no cyanosis or edema noted. Clubbing positive upper extremities. Onychomycosis bilateral lower extremities. HEENT: Atraumatic/normocephalic, JOSELYN, neck supple Heart: RRR, S1 and S2 without clicks or murmurs Lungs: Mild respiratory distress, minimally audible breath sounds. Abdomen: Soft, nontender. Bowel sounds present . Vascular: Peripheral pulses palpable Neuro: No focal neurological deficits noted. Results Labs 11/05/24 04:51 11/05/24 04:51 Labs: Short CBC 11/03/24 11/04/24 Range/Units 19:43 05:10 WBC 13.2 H 9.7 (3.6-11.0) Thou/mm3 Hgb 13.4 12.2 (12.0-16.0) g/dL Hct 40.3 37.1 (36.0-46.0) % Plt Count 179 D 178 (140-440) Thou/mm3 BMP 11/03/24 11/04/24 19:43 05:10 Sodium 140 140 Potassium 3.9 3.7 Chloride 103 104 Carbon Dioxide 29.2 27.4 BUN 11 12 Creatinine 0.6 0.7 Glucose 105 230 H D Calcium 9.7 9.0 Cardiac Enzymes 11/03/24 Range/Units 19:43 Troponin I < 0.020 (0.0-0.045) ng/mL Liver Function 11/03/24 11/04/24 Range/Units 19:43 05:10 Total Bilirubin 0.4 0.3 (0.3-1.2) mg/dL AST 18 20 (0-34) U/L ALT 17 16 (10-49) U/L Alkaline Phosphatase 86 81 (46-116) U/L Albumin 4.7 4.2 D (3.5-5.0) gm/dL Quality Measures Quality Measures none Medications Home Medications and Allergies Home Medications ?Medication ?Instructions ?Recorded ?Confirmed ?Type flecainide 50 mg tablet 50 mg PO BID 08/17/22 History flecainide 100 mg tablet 100 mg PO BID 11/04/2411/04 History fluticasone furoate 200 1 inh inhalation Q24H 11/04/24 History mcg/actuation blister powder for inhalation (Arnuity Ellipta) losartan 50 mg tablet 50 mg PO DAILY 11/04/2402/23 History Allergies Allergy/AdvReac Type Severity Reaction Status Date / Time ketorolac (From Toradol) Allergy Intermediate Rash Verified 11/03/24 17:49 Visit Medications Acetaminophen (Acetaminophen 325 Mg Tablet) 650 mg PO Q6H PRN PRN Reason: Fever >100 or pain 1-3 Stop: 12/04/24 00:02 Last Admin: 11/04/24 03:14 Dose: 650 mg Benzonatate (Benzonatate 100 Mg Capsule) 100 mg PO BID PRN; Protocol PRN Reason: cough Stop: 12/04/24 08:59 Last Admin: 11/04/24 06:25 Dose: 100 mg Dextrose (Dextrose 50%-Water Inj 50 Ml Syringe) 25 ml IV Q15MIN PRN PRN Reason: BG 50-70 responsive npo pt Stop: 12/04/24 07:43 Dextrose (Dextrose 50%-Water Inj 50 Ml Syringe) 50 ml IV Q15MIN PRN PRN Reason: BG <50 OR BG <70 & pt unresponsive Stop: 12/04/24 07:43 Enoxaparin Sodium (Enoxaparin Sod Inj 40 Mg/0.4 Ml Syringe) 40 mg SC QDAY [facility] Stop: 11/18/24 08:59 Last Admin: 11/04/24 08:28 Dose: 40 mg Flecainide Acetate (Flecainide Acet 50 Mg Tablet) 100 mg PO BID [facility] Stop: 12/04/24 05:24 Last Admin: 11/04/24 06:15 Dose: 100 mg Glucagon (Glucagon Inj 1 Mg Vial) 1 mg IM Q15MIN PRN PRN Reason: BG <70, and no IV access Ceftriaxone Sodium 1,000 mg/ (Sodium Chloride) 50 mls @ 100 mls/hr IV [facility] Stop: 11/11/24 20:59 Azithromycin 250 mg/ Sodium (Chloride) 250 mls @ 250 mls/hr IV [facility] Stop: 11/11/24 20:59 Insulin Human Lispro (Insulin Lispro (Admelog) 1 Unit/0.01 Ml Unit) 0 unit SC [facility]; Protocol Stop: 12/04/24 11:29 Ipratropium [place] (Ipratropium Rt 0.5 Mg/ 2.5 Ml Nebu) 0.5 mg INH Q6HRRT [facility] Stop: 12/04/24 06:59 Last Admin: 11/04/24 06:33 Dose: 0.5 mg Levalbuterol HCl (Levalbuterol Rt 1.25 Mg/0.5 Ml Nebu) 1.25 mg INH Q6HRRT [facility] Stop: 12/04/24 00:59 Last Admin: 11/04/24 06:33 Dose: 1.25 mg Oseltamivir Phosphate (Oseltamivir 75 Mg Capsule) 75 mg PO BID [facility] Stop: 11/11/24 08:59 Last Admin: 11/04/24 08:28 Dose: 75 mg Pantoprazole Sodium (Pantoprazole 40 Mg Tablet) 40 mg PO QDAY [facility] Stop: 12/04/24 08:59 Last Admin: 11/04/24 08:28 Dose: 40 mg Prednisone (Prednisone 20 Mg Tablet) 40 mg PO QDAY [facility] Stop: 12/04/24 08:59 Last Admin: 11/04/24 08:28 Dose: 40 mg Sodium Chloride (Sodium Chloride Rt Lauren 0.9% 3 Ml Nebu) 3 ml INH PRN PRN PRN Reason: SOLN Stop: 12/04/24 00:02 Discontinued Medications Adenosine (Adenosine Inj 3 Mg/Ml Vial) 6 mg IVP X1 ONE Stop: 11/03/24 20:28 Last Admin: 11/03/24 20:39 Dose: 6 mg Adenosine (Adenosine Inj 3 Mg/Ml Vial) 12 mg IVP X1 ONE Stop: 11/03/24 20:28 Last Admin: 11/03/24 20:52 Dose: Not Given Adenosine (Adenosine Inj 3 Mg/Ml Vial) 6 mg IVP X1 ONE Stop: 11/04/24 04:16 Last Admin: 11/04/24 04:18 Dose: 6 mg Adenosine (Adenosine Inj 3 Mg/Ml Vial) 12 mg IVP X1 ONE Stop: 11/04/24 04:16 Last Admin: 11/04/24 04:37 Dose: Not Given Budesonide (Budesonide Rt 0.5 Mg/2 Ml Nebu) 0.5 mg INH X1 ONE Stop: 11/03/24 18:57 Last Admin: 11/03/24 19:31 Dose: 0.5 mg Dexamethasone Sodium Phosphate (Dexamethasone Sod Phos Inj 10 Mg/Ml Vial) 10 mg PO X1 ONE Stop: 11/03/24 20:44 Last Admin: 11/03/24 21:02 Dose: 10 mg Diltiazem HCl (Diltiazem Inj 5 Mg/Ml Vial 5 Ml) 10 mg IV X1 ONE Stop: 11/04/24 04:01 Last Admin: 11/04/24 04:07 Dose: 10 mg Acetaminophen (Ofirmev Inj) 1,000 mg in 100 mls @ 250 mls/hr IV X1 ONE Stop: 11/03/24 21:06 Last Infusion: 11/03/24 21:23 Dose: Infused Ceftriaxone Sodium 1,000 mg/ (Sodium Chloride) 50 mls @ 100 mls/hr IV X1 ONE Stop: 11/03/24 22:31 Last Infusion: 11/03/24 23:27 Dose: Infused Azithromycin 500 mg/ Sodium (Chloride) 250 mls @ 250 mls/hr IV X1 ONE Stop: 11/03/24 23:02 Last Infusion: 11/04/24 00:48 Dose: Infused Magnesium Sulfate (Magnesium Sulfate Ivpb) 2 gm in 50 mls @ 25 mls/hr IV X1 ONE Stop: 11/04/24 02:08 Last Infusion: 11/04/24 01:53 Dose: Infused Magnesium Sulfate (Magnesium Sulfate Ivpb) 2 gm in 50 mls @ 25 mls/hr IV X1 ONE Stop: 11/04/24 06:07 Last Admin: 11/04/24 04:35 Dose: 25 mls/hr Ipratropium [place] (Ipratropium Rt 0.5 Mg/ 2.5 Ml Nebu) 0.5 mg INH X1 ONE Stop: 11/03/24 18:57 Last Admin: 11/03/24 19:31 Dose: 0.5 mg Oseltamivir Phosphate (Oseltamivir 75 Mg Capsule) 75 mg PO X1 ONE Stop: 11/03/24 20:44 Last Admin: 11/03/24 21:01 Dose: 75 mg Potassium Chloride (Potassium Chloride 20 Meq Tabcr) 20 meq PO X1 ONE Stop: 11/04/24 00:08 Last Admin: 11/04/24 00:26 Dose: 20 meq Potassium Chloride (Potassium Chloride 20 Meq Tabcr) 40 meq PO X1 ONE Stop: 11/04/24 07:57 Last Admin: 11/04/24 08:28 Dose: 40 meq Assessment & Plan Plan Patient is a 59-year-old female, hard of hearing, with past medical history of COPD on 2L O2, hypertension, SVT on flecainide, osteoarthritis who presented to ER complaining of cough shortness of breath and heart palpitations. Patient stated that she came to the ER as she was getting short of breath and feeling her heart beating too fast and pounding on her chest as well as some chest discomfort. An EKG was done and she was prescribed breathing treatments but before she could get the breathing treatment/nebulization, narrow complex tachycardia was diagnosed and she was given adenosine which slowed down her heart. Patient reported that she had been having a sore throat and chills for the last 2 days also cough productive of greenish-yellow sputum. Endorsed mild chest discomfort and shortness of breath during episode of tachycardia, but denied having any current chest discomfort. Patient is usually on 2 L oxygen at home, currently saturating 90% on 5 L NC O2. Reported she is feeling tight in her chest. ER course: In the ER patient was found to have heart rate in the 150s, EKG showed narrow complex tachycardia, and was given adenosine which terminated arrhythmia, patient was admitted to medical floor, early in the morning patient had another run of narrow complex tachycardia, heart rate in the 150s was given diltiazem 10 mg x 1 which failed to terminate the arrhythmia, was given adenosine 6 mg which terminated the arrhythmia, heart rate in the 90s. Blood pressure stable. Patient home medication flecainide was resumed, cardiology was consulted for evaluation and management. Problems: 1. SVT, likely AVNRT EKG shows narrow complex tachycardia, slight right axis deviation, retrograde P wave, interventricular conduction delay. Possible AVNRT. Post adenosine EKG shows normal sinus rhythm. Heart rate remained stable since rapid response at 4 AM. Currently heart rate in the 90s, sinus rhythm. med rec shows She was prescribed Cardizem in July, but she confirmed she is still taking both Diltiazim 120 and Flecainide 100 mg, this currently maintaining rate/rythm with Flecainide 100 mg . - Continue with home meds Diltiazem 120mg and flecainide 100 mg twice daily. Watchful observation for electrolyte abnormalities, and Premature complexes, keep potassium more than 4 and magnesium more than 2. 2. Acute hypoxic respiratory failure 3. COPD exacerbation 4. Cocci pneumonia 5. Influenza Chest x-ray shows left base pneumonia, interstitial disease at lung bases, Continue antibiotics and Tamiflu. Continue steroids for copd exacerbation, likley hypoxia as well as pneumonia predisposing pt. to arrhythmia. management of underlying condition per primary team Plan of care discussed with Belt Builder Dr Jatinder Kong Pgy2
--- NOTE | 2024-11-04 11:13 | PC.SS ---
Patient Corinna De La Garza is a 59 Year old female admitted to the Telemetry Unit. SS met patient at bedside, however patient was asleep. SS contacted patient's Hu and he reports patient lives at home with him and patients daughter. Hu reports he is surrogate decision maker [phone]. Patient does not utilize any source of DME to assist with ambulation, however patient does utilize 1 1/2 L of 02. Choice of pharmacy is [facility]. PCP is Sofía Aquino. At time of discharge patient will return back home. will provide transportation. Next of Kin , Hu Discharge plan: Home
--- NOTE | 2024-11-04 11:21 | ESPR_ITS ---
<Statement entered by Benton Pena MD - 11/04/24 14:25> Patient was admitted overnight due to acute hypoxic respiratory failure due to COPD exacerbation and influenza pneumonia. Overnight, rapid response was called due to SVT as patient has a history of that and was taking flecainide. Patient was given doses of adenosine to control SVT. Currently patient is on IV antibiotics ceftriaxone and azithromycin. Continuing Tamiflu for influenza. Patient is also on steroids for COPD exacerbation. Will continue flecainide 100 mg twice daily for SVT and cardio has been consulted for further recommendations. Blood sugars were elevated this morning therefore insulin sliding scale was adjusted. Pending on cocci serology. Patient was saturating around 88% on 5 L NC. Will continue with current management. All labs and orders were reviewed. I saw and examined the patient, and I agree with current management stated by Dr Pillo MD,PGY1. Plan of care was discussed with the attending physician and resident physician. Disclaimer: Despite multiple revisions, due to the dictation software being used, the document bellow may not be free of grammatical errors including phonetic/typographic errors. However, this does not deter from our commitment to providing health care in the patient's best interest in mind. Dr. Becky MD, PGY 2 Documentation for date of: 11/04/24 Subjective Subjective Interval history: Corinna De La Garza is a 59-year-old female with a PMHx of COPD (2 L home O2 at all times), hypertension, SVT (on flecainide and diltiazem, sees Dr. Gould), partially deaf, and ovarian cancer who presented on 11/03 for SOB and heart racing x1 day. Associated with fever, sore throat, cough, and green/yellow sputum production. Possible sick contact at home but no recent travel. Takes flecainide and and possibly diltiazem at home for SVT. Smoked 10 cigarettes/day for 20 years, quit 6 months ago. In ED, BP 170/75, afebrile, HR 92, RR 24, O2 93% on 2 L NC. K 3.9, Mg 1.6, WBC 13.2, BNP 199, troponin negative. CXR showed L base PNA. EKG showed NSR 93 but received a breathing treatment and afterwards HR jumped to the 150s. Subsequently given 6 mg adenosine and HR decreased to the 90s. In ED also received decadron 10 mg, ipratropium, budesonide, rocephin/azithromycin, and Tamiflu 75 mg after testing positive for influenza A. Of note, around 4 AM after admission, HR noted to again increase to 160s. Given 10 mg diltiazem but HR did not respond and was given adenosine again that ultimately decreased HR to 90s and cardiology consulted. 11/04: Seen and examined at bedside in telemetry. Other than RR at 4 AM, no more acute overnight events and HR remained in 70s/80s. On 5 L NC and saturating between 88-92%, but does endorse some shortness of breath. Denies chest pain, fever, or chills. Will continue to monitor and titrate oxygen down to home baseline of 2 L. Exam Vital Signs Temp Pulse Resp BP Pulse Ox O2 Del Method O2 Flow Rate 97.2 F 87 26 H 113/60 88 L Nasal Cannula 5 11/04/24 07:27 11/04/24 07:51 11/04/24 07:27 11/04/24 07:27 11/04/24 07:27 11/04/24 04:00 11/04/24 07:27 Narrative Exam General: AOx3, no acute distress, able to speak full sentences HEENT: NC/AT, mucous membranes moist, bilateral sclera anicteric Cardiovascular: regular rate and rhythm, S1/S2 present, no murmurs appreciated Pulmonary: fine crackles in right lower lung spaces, no wheezing appreciated Abdominal: soft, non-tender, non-distended, no rebound/guarding, normal bowel sounds present Musculoskeletal: normal ROM, no peripheral edema Skin: warm and dry, intact, no rashes Neuro: CN II-XII intact, no focal deficits Objective Labs 11/04/24 05:10 11/04/24 05:10 Labs: Laboratory Results - last 24 hr 11/03/24 11/03/24 11/04/24 19:43 22:39 05:10 WBC 13.2 H 9.7 RBC 4.53 4.16 Hgb 13.4 12.2 Hct 40.3 37.1 MCV 89 89 MCH 29.6 29.3 MCHC 33.3 32.9 RDW Std Deviation 47.3 H 47.8 H Plt Count 179 D 178 Neut % (Auto) 86 H 95 H Lymph % (Auto) 6 L 3 L [place] % (Auto) 7 1 Eos % (Auto) 0 0 Baso % (Auto) 0 0 Neut # (Auto) 11.3 H 9.3 H Lymph # (Auto) 0.8 L 0.3 L [place] # (Auto) 0.9 H 0.1 Eos # (Auto) 0.0 0.0 Baso # (Auto) 0.0 0.0 Immature Gran # (Auto) 0.08 H 0.05 H Absolute Nucleated RBC 0.00 0.00 Immature Gran % 1 H 1 H Nucleated RBC % 0 0 Sodium 140 140 Potassium 3.9 3.7 Chloride 103 104 Carbon Dioxide 29.2 27.4 Anion Gap 8 9 BUN 11 12 Creatinine 0.6 0.7 Estim Creat Clear Calc 92.4 79.2 eGFR > 60 > 60 BUN/Creatinine Ratio 18 17 Glucose 105 230 H D Calculated Osmolality 278 286 Lactic Acid 1.5 Calcium 9.7 9.0 Corrected Calcium 9.7 9.0 Magnesium 1.6 2.6 Total Bilirubin 0.4 0.3 AST 18 20 ALT 17 16 Alkaline Phosphatase 86 81 Troponin I < 0.020 B-Natriuretic Peptide 199 H Total Protein 7.3 6.6 Albumin 4.7 4.2 D Globulin 2.6 2.4 Albumin/Globulin Ratio 1.8 1.8 Triglycerides 47 Cholesterol 136 LDL Cholesterol, Calc 70 HDL Cholesterol 57 Cholesterol/HDL Ratio 2.4 L Procalcitonin 0.11 TSH 0.36 L Free T4 1.26 Quality Measures Quality Measures none Assessment & Plan Assessment Current Active Medications: Generic Name Dose Route Start Last Admin Trade Name Bre PRN Reason Stop Dose Admin Acetaminophen 650 mg 11/04/24 00:03 11/04/24 03:14 Acetaminophen 325 Mg Tablet PO 12/04/24 00:02 650 mg Q6H PRN Administration Fever >100 or pain 1-3 Benzonatate 100 mg 11/04/24 00:35 11/04/24 06:25 Benzonatate 100 Mg Capsule PO 12/04/24 08:59 100 mg BID PRN Administration cough Protocol Dextrose 25 ml 11/04/24 07:44 Dextrose 50%-Water Inj 50 Ml Syringe IV 12/04/24 07:43 Q15MIN PRN BG 50-70 responsive npo pt Dextrose 50 ml 11/04/24 07:44 Dextrose 50%-Water Inj 50 Ml Syringe IV 12/04/24 07:43 Q15MIN PRN BG <50 OR BG <70 & pt unresponsive Enoxaparin Sodium 40 mg 11/04/24 09:00 11/04/24 08:28 Enoxaparin Sod Inj 40 Mg/0.4 Ml Syringe SC 11/18/24 08:59 40 mg QDAY YAKELIN Administration Flecainide Acetate 100 mg 11/04/24 05:25 11/04/24 06:15 Flecainide Acet 50 Mg Tablet PO 12/04/24 05:24 100 mg BID YAKELIN Administration Glucagon 1 mg 11/04/24 07:44 Glucagon Inj 1 Mg Vial IM Q15MIN PRN BG <70, and no IV access Ceftriaxone Sodium 1,000 mg/ 50 mls @ 100 mls/hr 11/04/24 21:00 Sodium Chloride IV 11/11/24 20:59 HS [facility] Azithromycin 250 mg/ Sodium 250 mls @ 250 mls/hr 11/04/24 21:00 Chloride IV 11/11/24 20:59 HS [facility] Insulin Human Lispro 0 unit 11/04/24 11:30 Insulin Lispro (Admelog) 1 Unit/0.01 Ml Unit SC 12/04/24 11:29 AC [facility] Protocol Ipratropium Transfer 0.5 mg 11/04/24 07:00 11/04/24 06:33 Ipratropium Rt 0.5 Mg/ 2.5 Ml [facility] 12/04/24 06:59 0.5 mg Q6HRRT YAKELIN Administration Levalbuterol HCl 1.25 mg 11/04/24 01:00 11/04/24 06:33 Levalbuterol Rt 1.25 Mg/0.5 Ml [facility] 12/04/24 00:59 1.25 mg Q6HRRT YAKELIN Administration Oseltamivir Phosphate 75 mg 11/04/24 09:00 11/04/24 08:28 Oseltamivir 75 Mg Capsule PO 11/11/24 08:59 75 mg BID YAKELIN Administration Pantoprazole Sodium 40 mg 11/04/24 09:00 11/04/24 08:28 Pantoprazole 40 Mg Tablet PO 12/04/24 08:59 40 mg QDAY YAKELIN Administration Prednisone 40 mg 11/04/24 09:00 11/04/24 08:28 Prednisone 20 Mg Tablet PO 12/04/24 08:59 40 mg QDAY YAKELIN Administration Sodium Chloride 3 ml 11/04/24 00:03 Sodium Chloride Rt Lauren 0.9% 3 Ml Nebu INH 12/04/24 00:02 PRN PRN SOLN Plan Corinna De La Garza is a 59-year-old female with a PMHx of COPD (2 L home O2 at all times), hypertension, SVT (on flecainide and diltiazem, sees Dr. Gould), partially deaf, and ovarian cancer who presented on 11/03 for SOB and heart racing x1 day. Associated with fever, sore throat, cough, and green/yellow sputum production. Possible sick contact at home but no recent travel. Takes flecainide and and possibly diltiazem at home for SVT. Admitted for AHRF secondary to acute COPD exacerbation due to influenza and management of SVTs. #Acute on chronic hypoxic respiratory failure, secondary to #Influenza pneumonia #Acute COPD exacerbation Presents with fever, sore throat, increased cough, and increased production of yellow-green sputum. On home O2 of 2 L at all times but also endorsed worsening SOB. Given decadron 10 mg, budesonide, iptratropium, ceftriaxone/azithromycin, and tamiflu in ED. Flu positive, COVID negative. CXR shows L base pneumonia and interstitial disease at lung bases. ? Tamiflu 75 mg twice daily (11/03-) ? Prednisone 40 mg daily for 4 more days ? Azithromycin 250 mg daily IV (11/03-) and rocephin 1 g daily IV (11/03-) ? Levalbuterol 1.25 every 6 hours, atrovent 2.5 every 6 hours ? Oxygen saturation goals 88 to 92%, wean down as tolerated ? Follow-up MRSA screen ? Follow-up blood cultures ? Follow-up Legionella and cocci ? Chest physio ? Tanisha Rowan #History of hypertension #History of SVT Given adenosine 6 mg for SVT in ED when heart rate was in the 150s and decreased to 90s. Takes flecainide but is unsure of the other medicine. No echo, however chest x-ray does not appear to show cardiomegaly. ? Awaiting med rec to resume home medicines ? Mg and K above 2 and 4, respectively to avoid any cardiac arrhythmias ? Consider echo at some point and cardiac consult, no record of echo seen #Hyperglycemia Likely in setting of steroid use. Will continue to monitor and conisder SSI if continues to increase. #Subclinical hyperthyroidism T4 within normal limits, no indication for treatment. #? Coccidiomycosis Serum IgM positive ? Follow-up confirmation and titer testing Hospital management: Disposition: AHRF secondary to influenza PNA, COPD exacerbation, SVT Fluids: none Diet: cardiac Lines: PIV DVT prophylaxis: enoxaparin 40 mg SC daily GI prophylaxis: pantoprazole 40 mg PO daily CODE STATUS: full code ----- Plan discussed with attending physician Dr. Arenas and senior resident physician Dr. Becky Ferro MD PGY-1 Internal Medicine Attending Provider Attestation/Addendum I have discussed and was present for the essential components of the history, physical examination, diagnosis, and treatment plan with the resident. I agree with the patient's care as documented by the resident and amended herein by me. John Paul Arenas, DO. Patient seen and evaluated this AM. No acute events overnight, vital signs stable, patient afebrile, patient presently on 5 L O2 at time of bedside visit. CBC demonstrated downtrending WBC of 9.7, BMP largely unremarkable, TSH low but free T4 WNL. Cardiology has been consulted considering SVT upon admission which is likely due to underlying illness. Will continue prednisone 40 mg daily at this time, ceftriaxone azithromycin as well as Tamiflu. Flecainide has already been ordered by admitting team, will consider adding diltiazem back however BP low in the AM. Will continue to monitor closely while she is here. Although this document has been carefully reviewed, there may still be some phonetic and other typographical errors. These errors are purely grammatical due to imperfections in the software program and should not be construed in any way to compromise the substance of the patient's medical care during this visit.
[2024-11-04] MEDS: INSULIN LISPRO (AdmeLOG) 1 UNIT/0.01 ML UNIT SC ×2 (11:45→17:42)
[2024-11-04 12:59] LABS: Cocci Serology, IgM Positive (Negative)
[2024-11-04 13:01] LABS: Cocid Sro, CF/ID (UCD) NO CHG* See Sep Rpt
[2024-11-04] MEDS: FLUCONAZOLE 100 MG TABLET 400 MG PO (17:42)
[2024-11-04] MEDS: AZITHROMYCIN INJ 250 MG in SODIUM CHLORIDE 0.9% 250 ML 250 ML IV (20:14)
[2024-11-05] VITALS (10 sets, daily range): BP systolic 93–137; BP diastolic 46–72; PULSE 60–84; RESP 15–24; TEMP 36.2–36.7; O2SAT 90–97; BMI 27.6
[2024-11-05] MEDS: LEVALBUTEROL RT 1.25 MG/0.5 ML NEBU INH ×3 (02:12→15:58)
[2024-11-05] MEDS: IPRATROPIUM RT 0.5 MG/ 2.5 ML NEBU INH ×3 (02:13→15:58)
[2024-11-05 05:17] LABS: Basophils % (Auto) 0 % (0-2.5); Eosinophils % (Auto) 0 % (0-10); Hematocrit 40.9 % (36.0-46.0); Hemoglobin 13.3 g/dL (12.0-16.0); Immature Granulocytes % (Auto) 1 % (0-0); Immature Granulocytes Auto 0.07 Thou/mm3 (0.00-0.00); Lymphocytes # (Auto) 1.1 Thou/mm3 (1.0-4.8); Lymphocytes % (Auto) 7 % (10-50); Mean Corpuscular HGB Conc 32.5 g/dl (31.0-37.0); Mean Corpuscular Hemoglobin 29.3 pg (25.0-35.0); Mean Corpuscular Volume 90 fL (80-100); Monocytes # (Auto) 1.2 Thou/mm3 (0.0-0.8); Monocytes % (Auto) 8 % (0-12); Neutrophils # (Auto) 12.6 Thou/mm3 (1.8-7.7); Neutrophils % (Auto) 84 % (37-80); Nucleated Red Blood Cell % 0 /100 WBC (0); Platelet Count 229 Thou/mm3 (140-440); RDW Standard Deviation 49.2 fL (36.4-46.3); Red Blood Count 4.54 Miln/mm3 (4.00-5.20)
[2024-11-05 05:53] LABS: Alanine Aminotransferase < 7 U/L (10-49); Albumin, Serum 4.2 gm/dL (3.5-5.0); Albumin/Globulin Ratio 1.5 (1.2-2.2); Alkaline Phosphatase 81 U/L (46-116); Anion Gap 8 (7-16); Aspartate Amino Transferase 22 U/L (0-34); BUN/Creatinine Ratio 20 Ratio (12-20); Bilirubin,Total 0.2 mg/dL (0.3-1.2); Blood Urea Nitrogen 14 mg/dL (9-23); Calcium 9.4 mg/dL (8.3-10.6); Calcium (Corrected) 9.4 mg/dL (8.5-10.1); Carbon Dioxide 29.8 mMol/L (20.0-31.0); Chloride 105 mMol/L (98-107); Creatinine (Component) 0.7 mg/dL (0.6-1.3); Estimated Creatinine Clearance 79.2 mL/min (>60); Globulin 2.8 gm/dL (2.3-3.5); Glucose 107 mg/dL (74-106); Magnesium 2.1 mg/dL (1.6-2.6); Osmolality,Calculated 285 (275-295); Phosphorous 3.7 mg/dL (2.4-5.1); Potassium 4.8 mMol/L (3.4-5.1); Sodium 143 mMol/L (136-145); eGFR > 60 See Note
[2024-11-05] MEDS: ACETAMINOPHEN 325 MG TABLET 650 MG PO ×2 (07:42→15:23)
[2024-11-05] MEDS: BENZONATATE 100 MG CAPSULE PO (07:44)
[2024-11-05] MEDS: predniSONE 20 MG TABLET 40 MG PO (08:17)
[2024-11-05] MEDS: PANTOPRAZOLE 40 MG TABLET PO (08:18)
[2024-11-05] MEDS: FLUCONAZOLE 100 MG TABLET 400 MG PO (08:18)
[2024-11-05] MEDS: OSELTAMIVIR 75 MG CAPSULE PO (08:21)
[2024-11-05] MEDS: ENOXAPARIN SOD INJ 40 MG/0.4 ML SYRINGE SC (08:22)
[2024-11-05] MEDS: FLECAINIDE ACET 50 MG TABLET 100 MG PO (09:19)
[2024-11-05] MEDS: DILTIAZEM CD 120 MG CAPCR PO (10:41)
--- NOTE | 2024-11-05 12:00 | PC.NURSE ---
Pt is requesting a walker with a seat for at home. Will contact SW and let them know
--- NOTE | 2024-11-05 12:17 | PC.SS ---
Walkers The diagnosis creates mobility limitation that significantly impairs ability to participate in the patients activities of daily living either in their entirety, or in a reasonable time frame. Also the patient is able to safely use the walker and the patient?s mobility is sufficiently resolved with the use of the walker and cane has been ruled out.
--- NOTE | 2024-11-05 12:22 | PC.SS ---
SS was informed by patient's nurse that patient was requesing Rollator walker. SS submitted DME inquiry for a Rollator Walker through [employer].
--- NOTE | 2024-11-05 13:24 | ESDS_ITS ---
<Statement entered by Benton Pena MD - 11/05/24 14:12> I saw and examined the patient, and I agree with current management stated by Dr Pillo MD,PGY1. Plan of care was discussed with the attending physician and resident physician. Disclaimer: Despite multiple revisions, due to the dictation software being used, the document bellow may not be free of grammatical errors including phonetic/typographic errors. However, this does not deter from our commitment to providing health care in the patient's best interest in mind. Dr. Becky MD, PGY 2 Planned Discharge Date 11/05/24 DS: Providers Provider Date of admission: 11/03/24 23:46 Primary care physician: Physician No Primary/Family Admitting Provider: Marilee Costa MD Attending Provider on Admission: Marilee Costa MD Consults: 11/04/24 03:11 Referral Infection Control Routine Comment: Reason for Infection Control Referral: Patient In Isolation Health Equity Referral - Transportation Routine Comment: Positive screening for transportation needs. 11/04/24 05:23 Consult to Cardiology Routine Comment: Consulting Provider: Musa Green Instructions: SVT Attending Provider on DC: Issac Ferro MD Discharging Provider: Issac Ferro MD DS: Diagnosis Problem List Completed Was Problem List Reviewed/Reconciled?: Yes Hospital Course Hospital Course Hospital course: Corinna De La Garza is a 59-year-old female with a PMHx of COPD (2 L home O2 at all times), hypertension, SVT (on flecainide and diltiazem, sees Dr. Gould), partially deaf, and ovarian cancer who presented on 11/03 for SOB and heart racing x1 day. Associated with fever, sore throat, cough, and green/yellow sputum production. Possible sick contact at home but no recent travel. Takes flecainide and and possibly diltiazem at home for SVT. Smoked 10 cigarettes/day for 20 years, quit 6 months ago. In ED, BP 170/75, afebrile, HR 92, RR 24, O2 93% on 2 L NC. K 3.9, Mg 1.6, WBC 13.2, BNP 199, troponin negative. CXR showed L base PNA. EKG showed NSR 93 but received a breathing treatment and afterwards HR jumped to the 150s. Subsequently given 6 mg adenosine and HR decreased to the 90s. In ED also received decadron 10 mg, ipratropium, budesonide, rocephin/azithromycin, and Tamiflu 75 mg after testing positive for influenza A. Of note, around 4 AM after admission, HR noted to again increase to 160s. Given 10 mg diltiazem but HR did not respond and was given adenosine again that ultimately decreased HR to 90s and cardiology consulted. Patient was started on Tamiflu, prednisone, and azithromycin for flu and COPD exacerbation, respectively. On hospital day 1, she was saturating between 88 and 92% on 5 L nasal cannula. Hospital day 2, she was saturating above 92% on 2 L nasal cannula that was then decreased to 1 L and continue to saturate well. Of note, cocci IgM antibody came back positive and confirmatory testing sent to [facility] but patient was subsequently started on fluconazole 400 mg p.o. daily. Otherwise, no recurrences of SVT and magnesium and potassium were monitored and repleted if needed. She did endorse pain in her toes, and on exam, had moderate onychomycosis. On discharge, recommended her to follow-up with PCP to obtain podiatry consult. Additionally, instructed to follow-up with PCP in order to obtain confirmatory testing from [facility] regarding cocci IgG and titers and determine if patient will continue to require taking fluconazole. Also discharged with 3.5 more days of Tamiflu, 3 more days of prednisone, and to continue all other home medications as prescribed. Time Spent with Patient Time attestation: Total time spent providing and/or coordinating discharge services: Exam Vital Signs Temp Pulse Resp BP Pulse Ox O2 Del Method O2 Flow Rate 98.0 F 72 22 H 118/69 93 L Nasal Cannula 2 11/05/24 08:00 11/05/24 10:41 11/05/24 08:00 11/05/24 10:41 11/05/24 08:00 11/05/24 08:00 11/05/24 08:00 Narrative Exam General: AOx3, no acute distress, able to speak full sentences HEENT: NC/AT, mucous membranes moist, bilateral sclera anicteric Cardiovascular: regular rate and rhythm, S1/S2 present, no murmurs appreciated Pulmonary: clear to auscultation bilaterally, no wheezing/coarse lung sounds appreciated Abdominal: soft, non-tender, non-distended, no rebound/guarding, normal bowel sounds present Musculoskeletal: normal ROM, no peripheral edema Skin: warm and dry, intact, no rashes Neuro: CN II-XII intact, no focal deficits Discharge Plan Plan Patient Disposition: HOME (Self Care) Care Plan Goals: - Continue taking fluconazole 200 mg twice daily for 60 more days, or at least until follow-up with PCP - Continue taking oseltamivir (Tamiflu) for 3.5 more days (take one more today and then two per day moving forward) - Continue taking prednisone 20 mg twice daily for three more days - Continue taking flecainide 100 mg twice daily - Continue taking diltiazem 120 mg twice daily - Continue taking all other home medications as prescribed - Follow-up with your PCP within 1-2 weeks of discharge - Obtain confirmatory testing from [facility] regarding Cocci IgG and titers - Obtain consult for podiatry - Return to ED if symptoms worsen or recur Prescriptions/Referrals Prescriptions/Med Rec: New oseltamivir 75 mg Capsule 75 mg PO BID Qty: 7 0RF prednisone 20 mg tablet 20 mg PO BID 3 Days Qty: 6 0RF fluconazole 200 mg tablet 200 mg PO BID 60 Days Qty: 120 0RF Continued levalbuterol tartrate [Xopenex HFA] 45 mcg/actuation HFA aerosol inhaler 2 inh inhalation Q4H PRN (Reason: shortness of breath or wheezing) Qty: 15 0RF gabapentin 300 mg capsule 300 mg PO TID Qty: 30 0RF diltiazem HCl 120 mg capsule,extended release 12 hr 120 mg PO BID Qty: 30 0RF metoprolol tartrate 50 mg tablet 50 mg PO BID Qty: 60 0RF flecainide 100 mg tablet 100 mg PO BID Patient Comments: take 1 tablet by mouth twice a day Arnuity Ellipta 200 mcg/actuation blister with device 1 inh INHALATION Q24H Patient Comments: inhale 1 puff by mouth once daily losartan 50 mg tablet 50 mg PO DAILY Patient Comments: take 1 tablet by mouth every morning Discontinued acetaminophen 500 mg capsule 1,000 mg PO Q8HR PRN (Reason: pain) Qty: 30 0RF hydrocodone-acetaminophen 5-325 mg tablet 1 tab PO Q8H MDD 3 PRN (Reason: pain) Qty: 14 0RF hydrocodone-acetaminophen 5-325 mg tablet 1 tab PO BID MDD 10 PRN (Reason: pain) Qty: 6 0RF flecainide 50 mg tablet 50 mg PO BID fluticasone propionate [Flonase Allergy Relief] 50 mcg/actuation spray,suspension 2 spray intranasal QDAY PRN (Reason: allergy symptoms) Qty: 16 0RF Rx Instructions: administer into each nostril Referrals: No Primary/Family,Physician [Primary Care Provider] - Musa Green MD [Physician] - Patient/Caregiver Discharge Instructions Education Materials: Supraventricular Tachycardia, Understanding Coccidioidomycosis Print Language: Mozambican Stand Alone Forms: [facility] Award Info., Patient Portal Info Letter Discharge Order Discharge Orders: Discharge (Routine); Ordered 11/05/24 Ordered By: Issac Ferro Quality Discharge Quality Measures VTE prophylaxis MD Attestestation MD Attestation I have discussed and was present for the essential components of the discharge history, physical examination, diagnosis, and discharge treatment plan with the resident. I agree with the patient's discharge care as documented by the resident and amended herein by me. John Paul Arenas DO. The patient understood all discharge instructions, all questions were answered satisfactorily. The patient was instructed to return to the Emergency Department is symptoms worsened or persisted. Patient was stable, afebrile and tolerating p.o. intake at time of discharge home. Although this document has been carefully reviewed, there may still be some phonetic and other typographical errors. These errors are purely grammatical due to imperfections in the software program and should not be construed in any way to compromise the substance of the patient's medical care during this visit.
--- NOTE | 2024-11-05 14:54 | PC.NURSE ---
Pt states she does not have a ride until around 1700
--- NOTE | 2024-11-05 21:57 | ESPR_ITS ---
<Statement entered by Musa Green MD - 11/07/24 16:52> I examined the patient with DR KONG PGY 2, agree with assessment and recommendations, has paroxysmal AVNRT .no further episodes since yesterday cont Flecainide 100 BID and Diltiazem will follow may need ablation as OP Documentation for date of: 11/05/24 Subjective Subjective Interval history: Patient is evaluated, heart rate in the high 70s, we confirmed with patient regarding her med rec, states he takes diltiazem 120 mg twice daily and flecainide 100 mg twice daily at home, discussed the case with Dr. Megan Green, who recommended diltiazem should be continued if heart rate stays in the 70s, as patient has recurrent SVTs, likely AVNRT, which is precipitated by premature complexes, diltiazem is less likely to prevent premature complexes, she would stay definitely only on flecainide, but if heart rate stays in the 70s can also continue diltiazem. Okay to discharge from cardiology standpoint, as no arrhythmias past 24 hours, will follow-up with Dr. Megan Green's office in 2 weeks on discharge. Exam Vital Signs Temp Pulse Resp BP Pulse Ox O2 Del Method O2 Flow Rate 97.7 F 79 24 H 121/72 92 L Nasal Cannula 2 11/05/24 16:00 11/05/24 16:00 11/05/24 16:00 11/05/24 16:00 11/05/24 16:00 11/05/24 16:00 11/05/24 16:00 Narrative Exam General: AOx3, no acute distress, able to speak full sentences HEENT: NC/AT, mucous membranes moist, bilateral sclera anicteric Cardiovascular: regular rate and rhythm, S1/S2 present, no murmurs appreciated Pulmonary: clear to auscultation bilaterally, no wheezing/coarse lung sounds appreciated Abdominal: soft, non-tender, non-distended, no rebound/guarding, normal bowel sounds present Musculoskeletal: normal ROM, no peripheral edema Skin: warm and dry, intact, no rashes Neuro: CN II-XII intact, no focal deficits Objective Labs 11/05/24 04:51 11/05/24 04:51 Labs: Laboratory Results - last 24 hr 11/05/24 04:51 WBC 15.0 H D RBC 4.54 Hgb 13.3 Hct 40.9 MCV 90 MCH 29.3 MCHC 32.5 RDW Std Deviation 49.2 H Plt Count 229 D Neut % (Auto) 84 H Lymph % (Auto) 7 L [place] % (Auto) 8 Eos % (Auto) 0 Baso % (Auto) 0 Neut # (Auto) 12.6 H Lymph # (Auto) 1.1 [place] # (Auto) 1.2 H Eos # (Auto) 0.0 Baso # (Auto) 0.0 Immature Gran # (Auto) 0.07 H Absolute Nucleated RBC 0.00 Immature Gran % 1 H Nucleated RBC % 0 PT 11.0 INR 1.0 APTT 33.0 Sodium 143 Potassium 4.8 D Chloride 105 Carbon Dioxide 29.8 Anion Gap 8 BUN 14 Creatinine 0.7 Estim Creat Clear Calc 79.2 eGFR > 60 BUN/Creatinine Ratio 20 Glucose 107 H D Calculated Osmolality 285 Calcium 9.4 Corrected Calcium 9.4 Phosphorus 3.7 Magnesium 2.1 Total Bilirubin 0.2 L AST 22 ALT < 7 L Alkaline Phosphatase 81 Total Protein 7.0 Albumin 4.2 Globulin 2.8 Albumin/Globulin Ratio 1.5 Quality Measures Quality Measures VTE prophylaxis Assessment & Plan Plan Patient is a 59-year-old female, hard of hearing, with past medical history of COPD on 2L O2, hypertension, SVT on flecainide, osteoarthritis who presented to ER complaining of cough shortness of breath and heart palpitations. Patient stated that she came to the ER as she was getting short of breath and feeling her heart beating too fast and pounding on her chest as well as some chest discomfort. An EKG was done and she was prescribed breathing treatments but before she could get the breathing treatment/nebulization, narrow complex tachycardia was diagnosed and she was given adenosine which slowed down her heart. Patient reported that she had been having a sore throat and chills for the last 2 days also cough productive of greenish-yellow sputum. Endorsed mild chest discomfort and shortness of breath during episode of tachycardia, but denied having any current chest discomfort. Patient is usually on 2 L oxygen at home, currently saturating 90% on 5 L [place] O2. Reported she is feeling tight in her chest. ER course: In the ER patient was found to have heart rate in the 150s, EKG showed narrow complex tachycardia, and was given adenosine which terminated arrhythmia, patient was admitted to medical floor, early in the morning patient had another run of narrow complex tachycardia, heart rate in the 150s was given diltiazem 10 mg x 1 which failed to terminate the arrhythmia, was given adenosine 6 mg which terminated the arrhythmia, heart rate in the 90s. Blood pressure stable. Patient home medication flecainide was resumed, cardiology was consulted for evaluation and management. Problems: 1. SVT, likely AVNRT EKG shows narrow complex tachycardia, slight right axis deviation, retrograde P wave, interventricular conduction delay. Possible AVNRT. Post adenosine EKG shows normal sinus rhythm. Heart rate remained stable since rapid response at 4 AM. Currently heart rate in the 90s, sinus rhythm. med rec shows She was prescribed Cardizem in July, but she confirmed she is still taking both Diltiazim 120 and Flecainide 100 mg, this currently maintaining rate/rythm with Flecainide 100 mg . - Continue with home meds Diltiazem 120mg and flecainide 100 mg twice daily. Watchful observation for electrolyte abnormalities, and Premature complexes, keep potassium more than 4 and magnesium more than 2. - discussed the case with Dr. Megan Green, who recommended diltiazem should be continued if heart rate stays in the 70s, as patient has recurrent SVTs, likely AVNRT, which is precipitated by premature complexes, diltiazem is less likely effective to prevent premature complexes, she would stay definitely only on flecainide, but if heart rate stays in the 70s can also continue diltiazem. Okay to discharge from cardiology standpoint, as no arrhythmias past 24 hours, will follow-up with Dr. Megan Green's office in 2 weeks on discharge. 2. Acute hypoxic respiratory failure 3. COPD exacerbation 4. Cocci pneumonia 5. Influenza Chest x-ray shows left base pneumonia, interstitial disease at lung bases, Continue antibiotics and Tamiflu. Continue steroids for copd exacerbation, likley hypoxia as well as pneumonia predisposing pt. to arrhythmia. management of underlying condition per primary team Plan of care discussed with [employer] Dr Jatinder Kong Pgy2
[2024-11-08 07:02] LABS: Legionella Ag, EIA, Urine* NOT DETECTED
== END 2024-11-05 18:15 | disposition home or self-care (01) | DRG 193 ==
LOC: SERX 22:06 → SERHOLD 11-04 00:35 → S2NX 11-04 02:44
PROVIDERS: Physician Assistant; Admitting Provider Internal Medicine; Emergency Provider Emergency Medicine; Visit Provider Student in an Organized Health Care Education/Training Program
DX: J10.00 Influenza due to other identified influenza virus with unspecified type of pneumonia (principal); J96.21 Acute and chronic respiratory failure with hypoxia; J44.1 Chronic obstructive pulmonary disease with (acute) exacerbation; J44.0 Chronic obstructive pulmonary disease with (acute) lower respiratory infection; I47.10 Supraventricular tachycardia, unspecified; B38.9 Coccidioidomycosis, unspecified; I10 Essential (primary) hypertension; H91.90 Unspecified hearing loss, unspecified ear; I48.91 Unspecified atrial fibrillation; J18.9 Pneumonia, unspecified organism; B35.1 Tinea unguium; M19.90 Unspecified osteoarthritis, unspecified site; I25.10 Atherosclerotic heart disease of native coronary artery without angina pectoris; Z87.891 Personal history of nicotine dependence; Z99.81 Dependence on supplemental oxygen; Z85.43 Personal history of malignant neoplasm of ovary; Z90.710 Acquired absence of both cervix and uterus; Z63.4 Disappearance and death of family member; Z11.52 Encounter for screening for COVID-19
CPT/HCPCS: 36415; 71045; 80053; 80061; 83605; 83735; 83880; 84100; 84145; 84439; 84443; 84484; 85025; 85610; 85730; 86635; 87040; 87081; 87400; 87449; 87811; 93005; 94640; 94667; 96365; 96367; 96375; 99291; J0131; J0153; J0456; J0696; J1100; J1650; J1815; J3475; J3490; J7050; J7512; A9270

== ENCOUNTER 2024-12-13 21:09 | Emergency (ER) | payer MEDICARE, SELFPAY ==
[2024-12-13 21:10] VITALS: BMI 27.6
[2024-12-13 21:30] VITALS: BP 100/66; PULSE 63; RESP 20; TEMP 36.5; O2SAT 93
--- NOTE | 2024-12-13 21:53 | EKG_ITS ---
[facility] Test Date: 2024-12-13 Pat Name: CHRISTY ERVIN Department: Room: - Gender: Female Bag [employer]er: : 1965 Requested By: Pat Woodward Order Number: [id number] Reading MD: Pat Woodward Measurements Intervals [place] Rate: 62 P: 53 TN: 141 QRS: 111 QRSD: 102 T: 1 QT: 438 QTc: 448 Interpretive Statements SINUS RHYTHM POSSIBLE RIGHT VENTRICULAR HYPERTROPHY [SOME/ALL OF: PROMINENT R IN V1, LATE TRANSITION, RAD, CESILIA, SSS] Compared to ECG 11/04/2024 04:31:00 T-wave abnormality no longer present /store/S0/[id number]/ecg/[id number].pdf
--- NOTE | 2024-12-13 21:53 | XR_ITS ---
Examination: PA lateral chest 2 views Technique: Upright PA lateral chest 2 views Exam date and time: December 13, 2024 1026 hrs. Comparison November 03, 2024 Indications: Chest pain shortness of breath today Findings: Mild prominence cardiac contour Moderate vascular congestion Interstitial disease at the lung bases Impression: Findings suspicious for pulmonary edema at the lung bases, bibasilar pneumonia not excluded, the appearance should be clinically correlated
--- NOTE | 2024-12-13 21:54 | XR_ITS ---
Examination: CT brain head without contrast. 2-D sagittal coronal reconstructions Date and time of exam:December 13, 2024 10:50 PM Indications: Facial numbness beginning 30 minutes ago CTDI: vol (mGy):4844 DLP: (mGycm):958 Technique: Multiple CT axial sections of the brain have been obtained, 5 mm slice thickness. Contrast has not been administered. 2-D sagittal, coronal reconstructions have been obtained Low dose protocols were performed. One or more of the following dose reduction techniques were used; automated exposure control, adjustment of the mA and/or KV according to patient size, use of iterative reconstruction technique. Findings: No significant ventricular enlargement. Intra-axial or extra-axial hemorrhage density is not seen. No mass effect or midline shift Basal cisterns are not remarkable. Fourth ventricle is midline. Cranial vault intact. Impression: Negative for acute hemorrhage, mass effect or midline shift Brain MRI follow-up would best assess for demyelinating disease, acute ischemic change
--- NOTE | 2024-12-13 21:56 | PD.EDRME ---
Rapid Medical Screening Exam RME Arrival date/time: 12/13/24 21:09 Chief Complaint: General Adult/Misc Complain Time Seen by Provider: 12/13/24 21:25 Vital signs: Vital Signs Temperature 97.7 F 12/13/24 21:30 Pulse Rate 63 12/13/24 21:30 Respiratory Rate 20 12/13/24 21:30 Blood Pressure 100/66 12/13/24 21:30 Pulse Oximetry (%) 93 L 12/13/24 21:30 Oxygen Delivery Method Nasal Cannula 12/13/24 21:30 Oxygen Flow Rate 2 12/13/24 21:30 Vital signs reviewed by provider: Yes RME Narrative: 65-year-old female presents to the ED with a complaint of facial numbness and tingling. She states her perioral area feels like it swollen. She is also c/o shortness of breath. I have greeted and performed a focused initial assessment of this patient. A comprehensive ED assessment and evaluation of the patient, analysis of all test results, and completion of the medical decision making process will be conducted by additional ED providers.
[2024-12-13 22:34] VITALS: BP 95/50; PULSE 58; RESP 22; O2SAT 98
[2024-12-13 22:37] LABS: Basophils # (Auto) 0.1 Thou/mm3 (0.0-0.2); Basophils % (Auto) 0 % (0-2.5); Eosinophils # (Auto) 0.1 Thou/mm3 (0.0-0.5); Eosinophils % (Auto) 0 % (0-10); Hematocrit 46.2 % (36.0-46.0); Hemoglobin 14.5 g/dL (12.0-16.0); Immature Granulocytes % (Auto) 1 % (0-0); Immature Granulocytes Auto 0.16 Thou/mm3 (0.00-0.00); Lymphocytes # (Auto) 2.4 Thou/mm3 (1.0-4.8); Lymphocytes % (Auto) 11 % (10-50); Mean Corpuscular HGB Conc 31.4 g/dl (31.0-37.0); Mean Corpuscular Hemoglobin 29.2 pg (25.0-35.0); Mean Corpuscular Volume 93 fL (80-100); Monocytes # (Auto) 1.3 Thou/mm3 (0.0-0.8); Monocytes % (Auto) 6 % (0-12); Neutrophils # (Auto) 18.2 Thou/mm3 (1.8-7.7); Neutrophils % (Auto) 82 % (37-80); Nucleated Red Blood Cell % 0 /100 WBC (0); Platelet Count 334 Thou/mm3 (140-440); Red Blood Count 4.97 Miln/mm3 (4.00-5.20); White Blood Count 22.3 Thou/mm3 (3.6-11.0)
--- NOTE | 2024-12-13 23:00 | PC.NURSE ---
PT ALERT AND IN NO ACUTE DISTRESS, CAME IN C/O NUMBNESS AND TINGLING TO LIPS WITH SWELLING TO EYES AND SHORTNESS OF BREATH. PT UNSURE IF SHE IS HAVING AN ALLERGIC REACTION. PT BROUGHT INTO ROOM ON 2L NASAL CANAL STATING THAT IS HELPING BUT DOESNT WEAR O2 AT HOME. PT WAITING TO SEE ER MD TO BE RE-EVALUATED. WILL CONTINUE TO MONITOR
[2024-12-13] MEDS: ALBUTEROL/IPRATROPIUM (Duoneb) RT SOL 3 ML NEBU INH (23:05)
[2024-12-13 23:08] LABS: B-Type Natriuretic Peptide 102 pg/mL (0-100)
[2024-12-13 23:09] VITALS: PULSE 55; RESP 18; O2SAT 100
[2024-12-13 23:10] LABS: Alanine Aminotransferase 18 U/L (10-49); Albumin, Serum 4.4 gm/dL (3.5-5.0); Anion Gap 6 (7-16); Aspartate Amino Transferase 21 U/L (0-34); BUN/Creatinine Ratio 19 Ratio (12-20); Bilirubin,Total 0.2 mg/dL (0.3-1.2); Blood Urea Nitrogen 23 mg/dL (9-23); Calcium 9.1 mg/dL (8.3-10.6); Calcium (Corrected) 9.1 mg/dL (8.5-10.1); Carbon Dioxide 26.8 mMol/L (20.0-31.0); Chloride 106 mMol/L (98-107); Creatinine (Component) 1.2 mg/dL (0.6-1.3); Estimated Creatinine Clearance 45.8 mL/min (>60); Globulin 2.7 gm/dL (2.3-3.5); Glucose 111 mg/dL (74-106); LDH (Lactate Dehydrogenase) 210 U/L (120-246); Osmolality,Calculated 282 (275-295); Potassium 4.2 mMol/L (3.4-5.1); Sodium 139 mMol/L (136-145); Total Protein 7.1 gm/dL (5.7-8.2); Troponin I < 0.020 ng/mL (0.0-0.045); eGFR 52 See Note
[2024-12-13 23:11] LABS: Albumin/Globulin Ratio 1.6 (1.2-2.2); Alkaline Phosphatase 80 U/L (46-116)
[2024-12-14] VITALS (7 sets, daily range): BP systolic 93–130; BP diastolic 53–74; PULSE 60–83; RESP 10–24; TEMP 36.1–36.4; O2SAT 91–100
[2024-12-14 05:13] LABS: Collection Type, Urine Clean Catch
[2024-12-14 05:15] LABS: Bilirubin,Urine Negative (Negative); Blood,Urine Negative (Negative); Clarity,Urine Clear (Clear/Hazy); Color,Urine Lt-Yellow (Lt Yel-Yel); Glucose, Urine Negative (Negative); Hyaline Casts,Urine < 1 /hpf (0-1); Ketones,Urine Negative (Negative); Leukocyte Esterase,Urine Negative (Negative); Nitrite,Urine Negative (Negative); PH,Urine 6.5 (5.0-7.0); Protein,Urine Trace (Neg - Trace); RBC,Urine 2 /hpf (0-3); Specific Gravity,Urine 1.015 (1.001-1.035); Squamous Epithelial Cell,Urine 1 /hpf (0-5); Urobilinogen,Urine Negative mg/dL (0.0-1.0); WBC,Urine 3 /hpf (0-5)
--- NOTE | 2024-12-14 06:25 | PD.EDADULT ---
ED General RME/HPI General Chief complaint: General Adult/Misc Complain Stated complaint: FACE TINGLING X 30MINS Time Seen by Provider: 12/13/24 21:25 Arrival date/time: 12/13/24 21:09 RME / HPI RME / HPI narrative: 65-year-old female presents to the ED with a complaint of facial numbness and tingling. She states her perioral area feels like it swollen. She is also c/o shortness of breath. I have greeted and performed a focused initial assessment of this patient. A comprehensive ED assessment and evaluation of the patient, analysis of all test results, and completion of the medical decision making process will be conducted by additional ED providers. DR. RICO MAIN ED EVALUATION: 59 y/o female with Hx of Arthritis, Cardiac Arrhythmia (SVT), Atrial Fibrillation, Hypertension, Chronic Obstructive Pulmonary Disease (COPD), and Asthma. presents to ED c/o mouth, throat, ankle, and facial swelling x last night. Patient denies any known allergies. Per nurse, patient initially came in complaining of tingling lips, some periorbital edema, and shortness of breath. Patient wears O2 at home, 24/03. Patient has been given a breathing treatment since arriving and reports feeling better, but admits to feeling dizzy. Per nurse, patient is able to walk a short distance before getting short of breath. No other concerns or complaints expressed at this time. Related Data Home Medications ?Medication ?Instructions ?Recorded ?Confirmed flecainide 100 mg tablet 100 mg PO BID 11/04/24 11/04/24 fluticasone furoate 200 1 inh inhalation Q24H 11/04/24 11/04/24 mcg/actuation blister powder for inhalation (Arnuity Ellipta) losartan 50 mg tablet 50 mg PO DAILY 11/04/24 11/04/24 Previous Rx's ?Medication ?Instructions ?Recorded diltiazem HCl 120 mg 120 mg PO BID #30 caps 05/16/24 capsule,extended release 12 hr levalbuterol tartrate 45 2 inh inhalation Q4H PRN shortness 06/14/24 mcg/actuation aerosol inhaler of breath or wheezing #15 grams (Xopenex HFA) metoprolol tartrate 50 mg tablet 50 mg PO BID #60 tabs 10/18/24 gabapentin 300 mg capsule 300 mg PO TID #30 caps 09/05/24 fluconazole 200 mg tablet 200 mg PO BID 60 days #120 tabs 11/05/24 Allergies Allergy/AdvReac Type Severity Reaction Status Date / Time ketorolac (From Toradol) Allergy Intermediate Rash Verified 11/03/24 17:49 Review of Systems Review of Systems Systems Reviewed: All systems reviewed, normal except as documented Narrative Review of Systems: Constitutional: DENIES; Fevers Eyes: Denies loss of vision Head/Ear/Nose: POSITIVES: mouth, throat, and facial swelling; DENIES; Loss of hearing Throat: DENIES; Dysphagia Cardiovascular: DENIES; Chest pain, dyspnea or syncope Respiratory: POSITIVES; Shortness of breath Gastrointestinal: DENIES; Rectal bleeding or melena. Genitourinary: DENIES; Dysuria (painful or difficult urination) Musculoskeletal: DENIES; Arthralgia (pain in a joint),; Skin: POSITIVES: ankle swelling; periorbital edema (per nurse see HPI) DENIES: Rash, Neurological: POSITIVES: Tingling of mouth and face, dizziness DENIES; Loss of function or movement Psychiatric: DENIES; recent major life stressor, emotional problem, illicit drug use or abuse Endocrinology: DENIES; Weight change Hematologic/Lymphatic: DENIES; Abnormal bruising Allergic/Immunologic: DENIES; Urticaria (hives) Past Medical History Past Medical History CARDIAC: Positive Cardiac Disorders, Cardiac Arrhythmia (SVT), Atrial Fibrillation and Hypertension RESPIRATORY: Positive Chronic Obstructive Pulmonary Disease (COPD), Asthma and Pneumonia MUSCULOSKELETAL: Positive Arthritis ENT: Positive Deafness OTHER HISTORY: Positive Hospitalization, Falls, Cancer and Ovarian Cancer Surgical History SURGICAL: Positive Hysterectomy Social History SMOKING STATUS: Never smoker SECOND HAND EXPOSURE: Yes SUBSTANCE USE: does not use ED Exam Narrative Physical exam: Physical Exam: General: The vital signs were reviewed. Patient is on oxygen I walk in the room I turned it off her O2 sats remained at 98%. Patient appears anxious. The patient is non-toxic, in no apparent distress and appears healthy with a patent airway, no respiratory distress and has no apparent circulatory problems. Head & Scalp: Normocephalic, atraumatic. Face: Appears normal and is without lesions, deformity. Ears: Left external pinna appears normal. Right external pinna appears normal. Eyes: The sclera is anicteric. No obvious photophobia. The Left and Right Orbit/Lid/Conjunctiva appears normal without swelling, discoloration or injection. Nose: The nose is without deformity, discharge or tenderness; Throat: Appears normal. The mucous membranes are pink and moist without exudates, redness or mass seen. The tongue appears normal. Neck: The neck is supple and no apparent mass or adenopathy. Chest: The chest wall is normal in size and symmetry and has no chest wall tenderness or crepitus. The patient displays normal ventilator effort without retractions, accessory muscle use and has adequate air movement bilaterally with no wheezes and no rales. Cardiovascular: Regular rate and rhythm; No murmurs, rubs, or gallops; Gastrointestinal: The abdomen appears normal. No obvious hernias or mass. The abdomen is soft and benign, non-distended, with no pain, no guarding and no rebound tenderness. Bowel sounds are present and normal sounding. No CVA tenderness. Genitourinary: Back/Spine: Normal inspection nontender Extremities/Musculoskeletal/lymphatic: The bilateral upper and lower extremities are warm. There is no evidence of arterial insufficiency. There is no evidence of venous insufficiency/edema. The patient spontaneously moves bilateral upper and lower extremities with no pain and no limitation of movement. There is no apparent, injury or trauma. Skin: The skin is warm, dry and intact. No rashes. No petechia. No purpura. No abnormal bruising. The color is appropriate with no cyanosis. Mental status/Psychiatric: Mental status is appropriate for age. The patient has no apparent delusions, visual hallucinations, no apparent audible hallucinations. The patient has no apparent suicidal thoughts/ideation and no apparent homicidal thoughts/ideation. Neurological: The patient is awake, alert, interactive, cordial, cooperative and is oriented to name and situation. The patient follows commands and answers historical question with no impairment. There is no visual disturbance apparent. The pupils are equal and reactive bilaterally with normal eye movements and no diplopia The bilateral upper and lower extremities have normal strength, normal range of motion and normal functioning. The gait, station and balance appear to be baseline with no acute change Course Quality Measures none Orders Category Date Time Status CT Screening NOW Care 12/14/24 06:28 Completed EKG (ED ONLY) *Do not use* NOW Care 12/13/24 21:53 Completed Insert IV NOW Care 12/14/24 06:[address] abdomen pelvis w con Stat Exams 12/14/24 06:[address] angio chest Stat Exams 12/14/24 06:[address] head/brain wo con Stat Exams 12/13/24 21:54 Completed EKG (ED Only) Stat Exams 12/13/24 21:53 Draft XR chest 2V Stat Exams 12/13/24 21:53 Completed B-Type Natriuretic Peptide Stat Lab 12/13/24 22:17 Completed Blood Culture (Lab) Stat Lab 12/14/24 07:17 Received CBC Stat Lab 12/13/24 22:17 Completed Comprehensive Metabolic Panel Stat Lab 12/13/24 22:17 Completed Drug Screen,Urine Stat Lab 12/14/24 04:17 Completed LDH (Lactate Dehydrogenase) Stat Lab 12/13/24 22:17 Completed Lactate (Lactic Acid) Stat Lab 12/14/24 07:22 Completed Troponin I Stat Lab 12/13/24 22:17 Completed Urinalysis Stat Lab 12/13/24 04:17 Completed Venous Blood Gas Stat Lab 12/14/24 07:22 Completed Acetaminophen Tab [Tylenol Tab] Med 12/14/24 06:32 Discontinued 650 mg PO X1 ONE Albuterol/Ipratr Rt Lauren [Duoneb Rt Lauren] Med 12/13/24 21:58 Discontinued 3 ml INH X1 ONE Ringers Lactated 500 ml [Lactated Ringers] 500 ml Med 12/14/24 06:29 Discontinued IV 999 mls/hr Vital Signs Vital signs: Vital Signs Temperature 97.7 F 12/13/24 21:30 Pulse Rate 63 12/13/24 21:30 Respiratory Rate 20 12/13/24 21:30 Blood Pressure 100/66 12/13/24 21:30 Pulse Oximetry (%) 93 L 12/13/24 21:30 Oxygen Delivery Method Nasal Cannula 12/13/24 21:30 Oxygen Flow Rate 2 12/13/24 21:30 [facility] [place] Patient data External records reviewed:: [facility] previous records (Review prior ED visit notes from 11/03/24-11/05/24. Patient was seen and discharged for hypoxia.) Clinical information provided by:: patient Social determinants that could affect healthcare access:: none Patient has the following chronic illnesses:: Cardiac Arrhythmia (SVT), Atrial Fibrillation, Hypertension, Chronic Obstructive Pulmonary Disease (COPD), and Asthma. How is presenting disease/condition affected by chronic disease/condition?: exacerbated by Evaluation data The following diagnostics were reviewed and interpreted by me:: lab results, radiology exam(s) and EKG tracing(s) (EKG as interpreted by me shows sinus rhythm of 62 BPM and no STEMI.) Lab and/or radiology exams considered but not ordered:: None Interpretation Summary: [facility] [address] [place] [address] [facility] Report Signed Patient: CHRISTY ERVIN. Record#: [id number] Birthdate: 1965 Age/Sex: 59 / F Location: [facility] Attending Dr: Ordering Physician: Pat Hayes PA-C Date of Service: 12/13/24 Procedure(s): CT head/brain wo con Accession Number(s): [id number] cc: Terrell Padgett MD; Pat Hayes PA-C; Sofía Aquino PA-C~ Examination: CT brain head without contrast. 2-D sagittal coronal reconstructions Date and time of exam:December 13, 2024 10:50 PM Indications: Facial numbness beginning 30 minutes ago CTDI: vol (mGy):4844 DLP: (mGycm):958 Technique: Multiple CT axial sections of the brain have been obtained, 5 mm slice thickness. Contrast has not been administered. 2-D sagittal, coronal reconstructions have been obtained Low dose protocols were performed. One or more of the following dose reduction techniques were used; automated exposure control, adjustment of the mA and/or KV according to patient size, use of iterative reconstruction technique. Findings: No significant ventricular enlargement. Intra-axial or extra-axial hemorrhage density is not seen. No mass effect or midline shift Basal cisterns are not remarkable. Fourth ventricle is midline. Cranial vault intact. Impression: Negative for acute hemorrhage, mass effect or midline shift Brain MRI follow-up would best assess for demyelinating disease, acute ischemic change Dictated By: Terrell Padgett MD Signed By: <Electronically signed by Terrell Padgett MD in OV> 12/13/24 4467 Patient: CHRISTY ERVIN [facility]. Record#: [id number] Birthdate: 1965 Age/Sex: 59 / F Location: [facility] Attending Dr: Ordering Physician: Pat Hayes PA-C Date of Service: 12/13/24 Procedure(s): XR chest 2V Accession Number(s): [id number] cc: Terrell Padgett MD; Pat Hayes PA-C; Sofía Aquino PA-C~ Examination: PA lateral chest 2 views Technique: Upright PA lateral chest 2 views Exam date and time: December 13, 2024 1026 hrs. Comparison November 03, 2024 Indications: Chest pain shortness of breath today Findings: Mild prominence cardiac contour Moderate vascular congestion Interstitial disease at the lung bases Impression: Findings suspicious for pulmonary edema at the lung bases, bibasilar pneumonia not excluded, the appearance should be clinically correlated Dictated By: Terrell Padgett MD Signed By: <Electronically signed by Terrell Padgett MD in OV> 12/13/24 2307 Medications Medications considered but not ordered:: None Medication administrations:: Medication Administration History Discontinued Medications Acetaminophen (Acetaminophen 325 Mg Tablet) 650 mg PO X1 ONE Stop: 12/14/24 06:33 Last Admin: 12/14/24 06:36 Dose: 650 mg Documented By: AC Albuterol/Ipratropium (Albuterol/Ipratropium (Duoneb) Rt Lauren 3 Ml Nebu) 3 ml INH X1 ONE Stop: 12/13/24 21:59 Last Admin: 12/13/24 23:05 Dose: 3 ml Documented By: GABY Lactated Ringer's (Lactated Ringers) 500 mls @ 999 mls/hr IV .Q31M ONE Stop: 12/14/24 06:59 Last Infusion: 12/14/24 08:01 Dose: Infused Documented By: Admin: 12/14/24 07:21 Dose: 999 mls/hr Documented By: DINO Comments: do not carry 500ml of LR Sub for 1000ml of LR See above if any. Consultations Consultation(s) initiated? (list below): No Diagnosis Differential Diagnosis ED Complaint MDM: COPD vs Anxiety Attack vs Panic Disorder vs SVT Most likely diagnosis given after review of the tests above:: Acute dyspnea, Anxiety attack, and COPD. Admission Indicated Admission indicated?: not indicated Explain why admission is indicated or not indicated:: Does not meet admission criteria. Admission Request Was there a request for admission?: No Disposition Plan Disposition Plan: Discharge Discharge Attestation Discharge Attestation: The patient and all family members were given an opportunity to ask questions and understood the discharge instructions. Discharge instructions specifically effects, indications for sooner follow up or return to the emergency department, and the expected course of current diagnosis. Patient condition: Stable Medical Decision Making MDM Narrative MDM Narrative: Patient has multiple visits to the ER with waxing waning of white blood cell counts and today her white count is high and etiology of this fluctuating white blood cell count is uncertain but I am guessing it is anxiety related to her breathing as she comes in complaining of shortness of breath frequently. Today she clinically does not appear to be ill yet she admits to being anxious. She is on multiple medications. She has never had a workup with a CT and/or of her abdomen pelvis and because of the elevated white count today and no previous workup I am going to get a CT. Also get a lactic acid rule out any other abnormality. And then reevaluated. The only complaint the patient has is she has got leg pain and is asking for Tylenol. Because patient is having elevated white counts and complains of dyspnea I want to get a CT scan of her chest abdomen pelvis to evaluate the leukocytosis shortness of breath but CT came down patient states she cannot lay flat even though she can her O2 sats are 98% on room air she is very anxious person which brings us to the most likely diagnosis that this patient has anxiety attacks comes in short of breath calms down when she is here gets a breathing treatment even though she had no wheezing according to the night nurse verbal report. And her lungs are clear on my exam. Her O2 sat stays at 98% on room air. Since she is refusing the CT and I find no acute problem with her other than anxiety she can follow-up with her regular doctor and return if getting worse. Her medical workup today revealed blood pressures in the 125 164 range at 739 this morning. Pulse was in the 60s CBC has an elevated white count which is similar to the past but also up and down. Venous blood gas shows a pH of 110EHA9 of 51 consistent with some mild CO2 retention electrolytes are within normal limits. BUN 23 creatinine 1.2 transaminases are within normal limits total bilirubin is negative. Glucose is 111. Lactic acid is 1.0 BNP is 102 barely at the upper limits of normal. Troponin was negative. Urinalysis came back entirely negative drug screen was negative. CT scan of the head was done yesterday and she was able to lay flat for that and that was negative. Chest x-ray has some increased markings and do not believe there is anything significant on even though it is possible bilateral infiltrates note her lungs are clear she has no rales O2 sats are normal. And she was not treated for pulmonary edema. Believe this x-ray is an overcall. Today patient alert awake she can ambulate she admits to being anxious. Will discharge her and have her follow-up with her regular doctor. Note this patient does come here frequently and looks the exact same as the last time I saw her. Note the patient walked the department she had no distress correct O2 sat dropped to 91% and and evidently she is on home O2. Today to see nothing acute and she can go home and follow-up with her regular doctor. Differential Diagnosis Differential Diagnosis: COPD vs Anxiety Attack vs Panic Disorder vs SVT Lab Data 12/13/24 22:17 12/13/24 22:17 Labs: Lab Results 12/13/24 12/13/24 12/14/24 Range/Units 04:17 22:17 04:17 WBC 22.3 H (3.6-11.0) Thou/mm3 RBC 4.97 (4.00-5.20) Miln/mm3 Hgb 14.5 (12.0-16.0) g/dL Hct 46.2 H (36.0-46.0) % MCV 93 (80-100) fL MCH 29.2 (25.0-35.0) pg MCHC 31.4 (31.0-37.0) g/dl RDW Std Deviation 53.0 H (36.4-46.3) fL Plt Count 334 D (140-440) Thou/mm3 Neut % (Auto) 82 H (37-80) % Lymph % (Auto) 11 (10-50) % Dickens % (Auto) 6 (0-12) % Eos % (Auto) 0 (0-10) % Baso % (Auto) 0 (0-2.5) % Neut # (Auto) 18.2 H (1.8-7.7) Thou/mm3 Lymph # (Auto) 2.4 (1.0-4.8) Thou/mm3 Dickens # (Auto) 1.3 H (0.0-0.8) Thou/mm3 Eos # (Auto) 0.1 (0.0-0.5) Thou/mm3 Baso # (Auto) 0.1 (0.0-0.2) Thou/mm3 Immature Gran # (Auto) 0.16 H (0.00-0.00) Thou/mm3 Absolute Nucleated RBC 0.00 (0.00-0.00) Thou/mm3 Immature Gran % 1 H (0-0) % Nucleated RBC % 0 (0) /100 WBC VBG pH (7.33-7.66) VBG pCO2 (36-56) mmHg VBG pO2 (15-58) mmHg VBG O2 Sat (Latonya) (96-97) % VBG Base Excess (-3-3) Sodium 139 (136-145) mMol/L Potassium 4.2 (3.4-5.1) mMol/L Chloride 106 (98-107) mMol/L Carbon Dioxide 26.8 (20.0-31.0) mMol/L Anion Gap 6 L (7-16) BUN 23 (9-23) mg/dL Creatinine 1.2 (0.6-1.3) mg/dL Estim Creat Clear Calc 45.8 L (>60) mL/min eGFR 52 L (60 - ) See Note BUN/Creatinine Ratio 19 (12-20) Ratio Glucose 111 H (74-106) mg/dL Calculated Osmolality 282 (275-295) Lactic Acid (0.4-2.0) mMol/L Calcium 9.1 (8.3-10.6) mg/dL Corrected Calcium 9.1 (8.5-10.1) mg/dL Total Bilirubin 0.2 L (0.3-1.2) mg/dL AST 21 (0-34) U/L ALT 18 (10-49) U/L Alkaline Phosphatase 80 (46-116) U/L Lactate Dehydrogenase 210 (120-246) U/L Troponin I < 0.020 (0.0-0.045) ng/mL B-Natriuretic Peptide 102 H (0-100) pg/mL Total Protein 7.1 (5.7-8.2) gm/dL Albumin 4.4 (3.5-5.0) gm/dL Globulin 2.7 (2.3-3.5) gm/dL Albumin/Globulin Ratio 1.6 (1.2-2.2) Ur Collection Type Clean Catch Urine Color Lt-Yellow (Lt Yel-Yel) Urine Clarity Clear (Clear/Hazy) Urine pH 6.5 (5.0-7.0) Ur Specific Baker 1.015 (1.001-1.035) Urine Protein Trace (Neg - Trace) Urine Glucose (UA) Negative (Negative) Urine Ketones Negative (Negative) Urine Blood Negative (Negative) Urine Nitrite Negative (Negative) Urine Bilirubin Negative (Negative) Urine Urobilinogen (Auto) Negative (0.0-1.0) mg/dL Ur Leukocyte Esterase Negative (Negative) Urine RBC 2 (0-3) /hpf Urine WBC 3 (0-5) /hpf Ur Squamous Epith Cells 1 (0-5) /hpf Urine Bacteria None (None) Hyaline Casts < 1 (0-1) /hpf Urine Opiates Screen Negative (Negative) Urine Fentanyl Screen Negative (Negative) Ur Barbiturates Screen Negative (Negative) U Amphetamin/Meth Scrn Negative (Negative) U Benzodiazepines Scrn Negative (Negative) U Cocaine Metab Screen Negative (Negative) U Marijuana (THC) Screen Negative (Negative) 12/14/24 Range/Units 07:22 WBC (3.6-11.0) Thou/mm3 RBC (4.00-5.20) Miln/mm3 Hgb (12.0-16.0) g/dL Hct (36.0-46.0) % MCV (80-100) fL MCH (25.0-35.0) pg MCHC (31.0-37.0) g/dl RDW Std Deviation (36.4-46.3) fL Plt Count (140-440) Thou/mm3 Neut % (Auto) (37-80) % Lymph % (Auto) (10-50) % Dickens % (Auto) (0-12) % Eos % (Auto) (0-10) % Baso % (Auto) (0-2.5) % Neut # (Auto) (1.8-7.7) Thou/mm3 Lymph # (Auto) (1.0-4.8) Thou/mm3 Dickens # (Auto) (0.0-0.8) Thou/mm3 Eos # (Auto) (0.0-0.5) Thou/mm3 Baso # (Auto) (0.0-0.2) Thou/mm3 Immature Gran # (Auto) (0.00-0.00) Thou/mm3 Absolute Nucleated RBC (0.00-0.00) Thou/mm3 Immature Gran % (0-0) % Nucleated RBC % (0) /100 WBC VBG pH 7.33 (7.33-7.66) VBG pCO2 51 (36-56) mmHg VBG pO2 39 (15-58) mmHg VBG O2 Sat (Latonya) 69 L (96-97) % VBG Base Excess 0 (-3-3) Sodium (136-145) mMol/L Potassium (3.4-5.1) mMol/L Chloride (98-107) mMol/L Carbon Dioxide (20.0-31.0) mMol/L Anion Gap (7-16) BUN (9-23) mg/dL Creatinine (0.6-1.3) mg/dL Estim Creat Clear Calc (>60) mL/min eGFR (60 - ) See Note BUN/Creatinine Ratio (12-20) Ratio Glucose (74-106) mg/dL Calculated Osmolality (275-295) Lactic Acid 1.0 (0.4-2.0) mMol/L Calcium (8.3-10.6) mg/dL Corrected Calcium (8.5-10.1) mg/dL Total Bilirubin (0.3-1.2) mg/dL AST (0-34) U/L ALT (10-49) U/L Alkaline Phosphatase (46-116) U/L Lactate Dehydrogenase (120-246) U/L Troponin I (0.0-0.045) ng/mL B-Natriuretic Peptide (0-100) pg/mL Total Protein (5.7-8.2) gm/dL Albumin (3.5-5.0) gm/dL Globulin (2.3-3.5) gm/dL Albumin/Globulin Ratio (1.2-2.2) Ur Collection Type Urine Color (Lt Yel-Yel) Urine Clarity (Clear/Hazy) Urine pH (5.0-7.0) Ur Specific Baker (1.001-1.035) Urine Protein (Neg - Trace) Urine Glucose (UA) (Negative) Urine Ketones (Negative) Urine Blood (Negative) Urine Nitrite (Negative) Urine Bilirubin (Negative) Urine Urobilinogen (Auto) (0.0-1.0) mg/dL Ur Leukocyte Esterase (Negative) Urine RBC (0-3) /hpf Urine WBC (0-5) /hpf Ur Squamous Epith Cells (0-5) /hpf Urine Bacteria (None) Hyaline Casts (0-1) /hpf Urine Opiates Screen (Negative) Urine Fentanyl Screen (Negative) Ur Barbiturates Screen (Negative) U Amphetamin/Meth Scrn (Negative) U Benzodiazepines Scrn (Negative) U Cocaine Metab Screen (Negative) U Marijuana (THC) Screen (Negative) Discharge Plan Plan Patient Disposition: HOME (Self Care) Prescriptions/Referrals Prescriptions/Med Rec: No Action levalbuterol tartrate [Xopenex HFA] 45 mcg/actuation HFA aerosol inhaler 2 inh inhalation Q4H PRN (Reason: shortness of breath or wheezing) Qty: 15 0RF gabapentin 300 mg capsule 300 mg PO TID Qty: 30 0RF diltiazem HCl 120 mg capsule,extended release 12 hr 120 mg PO BID Qty: 30 0RF metoprolol tartrate 50 mg tablet 50 mg PO BID Qty: 60 0RF flecainide 100 mg tablet 100 mg PO BID Patient Comments: take 1 tablet by mouth twice a day Arnuity Ellipta 200 mcg/actuation blister with device 1 inh INHALATION Q24H Patient Comments: inhale 1 puff by mouth once daily losartan 50 mg tablet 50 mg PO DAILY Patient Comments: take 1 tablet by mouth every morning fluconazole 200 mg tablet 200 mg PO BID 60 Days Qty: 120 0RF Referrals: Sofía Aquino PA-C [Primary Care Provider] - In 1 week Problem List Clinical Impression: Acute dyspnea, Anxiety attack, COPD (chronic obstructive pulmonary disease) Patient/Caregiver Discharge Instructions Additional Instructions: See your regular doctor in 2 days to reevaluate your shortness of breath. Return if getting worse. Also have your doctor address your anxiety issues. Print Language: East Timorese Stand Alone Forms: Serena Award Info., Patient Portal Info Letter
[2024-12-14] MEDS: ACETAMINOPHEN 325 MG TABLET 650 MG PO (06:36)
[2024-12-14] MEDS: RINGERS LACTATED 500 ML 500 ML 999 ML IV (07:21)
[2024-12-14 07:29] LABS: Amphetamine/Methamp Scrn,U Negative (Negative); Barbiturate Screen,Urine Negative (Negative); Benzodiazepines Screen,Urine Negative (Negative); Benzoylecgonine Screen, Ur Negative (Negative); Fentanyl Screen,Urine Negative (Negative); Opiate Screen,Urine Negative (Negative); THC Screen,Urine Negative (Negative)
[2024-12-14 07:33] LABS: Base Excess, Venous 0 (-3-3); O2 Saturation, Venous 69 % (96-97); PCO2, Venous 51 mmHg (36-56); PO2, Venous 39 mmHg (15-58); pH, Venous 7.33 (7.33-7.66)
--- NOTE | 2024-12-14 08:20 | PC.NURSE ---
PT TELLING CT MOLDER HAND SHE CAN'T LAY FLAT. dR. Rico IN TO CHEK PT AND HAVE PT LAY FLAT. SAT'S 100% LAYING FLAT ON . THEN AFTER AGREEING TO GO TELLS CT MOLDER HAND I CAN'T DO IT AFTER BEING TOLD WOULD HAVE A SEATBELT ON WHEN ON THE CT TABLE. DR. RICO INFORMED THAT PT REFUSED
--- NOTE | 2024-12-14 08:29 | PC.NURSE ---
PT ABLE TO WALK AFOUND UNIT WITH O2 WITHOUT PROBLEMS. O2 SAT 91% RA UPON GETTING BACK TO ROOM AND INFORMED
== END 2024-12-14 08:40 | disposition home or self-care (01) ==
PROVIDERS: Physician Assistant; Emergency Provider Emergency Medicine; PCP Physician Assistant
DX: R06.00 Dyspnea, unspecified (principal); F41.9 Anxiety disorder, unspecified; J44.89 Other specified chronic obstructive pulmonary disease; I48.91 Unspecified atrial fibrillation; I10 Essential (primary) hypertension
CPT/HCPCS: 36415; 70450; 71046; 80053; 80307; 81001; 82803; 83605; 83615; 83880; 84484; 85025; 87040; 94640; 96360; 99284; A9270; J7120